=== PATIENT | male | born 1945 | race African-American/Black ===

== ENCOUNTER 2017-05-24 10:55 | Inpatient (IN) ==
--- NOTE | 2017-05-24 11:25 | EKG Report ---
Stationary ECG Study [facility] ER Test Date: 05/24/2017 11:07:08 AM Pat Name: ENRIKE COLINDRES Department: Room: Gender: M Training Representative: Magdiel Rowe : 1945 Requested by: Jonah Schmid Order Number: [id number] Reading MD: YURI MEJIA Intervals [place] Rate: 74 P: 68 MS: 194 QRS: -2 QRSD: 113 T: 83 QT: 444 QTc: 471 Interpretive Statements SINUS RHYTHM WITH OCCASIONAL VENTRICULAR PREMATURE COMPLEXES WITH OCCASIONAL SUPRAVENTRICULAR PREMATURE COMPLEXES NONSPECIFIC INTRAVENTRICULAR CONDUCTION DELAY LONG QT INTERVAL Electronically Signed On 05-24-17 18:23:08 CDT by YURI MEJIA [email or web address]
[2017-05-24 11:39] LABS: Basophils # 0.1 10*3/uL (0.0-0.2); Basophils % 1.2 % (0.0-0.8); Eosinophils # 0.2 10*3/uL (0.0-0.87); Eosinophils % 3.8 % (0.00-10.9); Hematocrit 39.4 VOL% (42.0-52.0); Hemoglobin 13.6 GM/DL (14.0-18.0); Immature Granulocytes % 0.2 %; Immature Granulocytes Absolute 0.01 #; Lymphocytes # 1.4 10*3/uL (1.4-4.0); Lymphocytes % 33.7 % (21.2-54.2); Mean Corpuscular HGB Conc 34.5 GM/DL (32-36); Mean Corpuscular Hemoglobin 32 PG (27-34); Mean Corpuscular Volume 92.9 FL (87-102); Mean Platelet Volume 11.5 FL (9.6-12.0); Monocytes # 0.7 10*3/uL (0.11-0.8); Monocytes % 16.3 % (1.7-12.7); Neutrophils # 1.9 10*3/uL (1.4-7.4); Neutrophils % 44.8 % (38.7-73.9); Platelet Count 218 T/CUMM (130-400); Red Blood Count 4.24 MC/CUMM (3.8-5.5); Red Cell Distribution Width 13.4 % (9.3-17.3); White Blood Count 4.2 T/CUMM (4-12)
--- NOTE | 2017-05-24 11:41 | XRay Report ---
History: Shortness of breath Date: 05/24/2017 Study: Chest x-ray AP portable Comparison exam: October 07, 2016 There is continued cardiomegaly. The midsternal contours are stable in this patient status post prior median sternotomy. The pulmonary vasculature is borderline prominent. A left subclavian transvenous pacemaker/defibrillator device is stable in appearance. There is no confluent infiltrate. The lungs are generally clear for shallow breath. There is no gross pleural effusion. Osseous structures are similar. Impression: Cardiomegaly and pulmonary venous hypertension appearance. Otherwise unchanged PROCEDURE INTERPRETED AT [facility] DEPARTMENT OF RADIOLOGY Final Report Signed by: Dr. Emeli Rabago
[2017-05-24 12:32] LABS: Eosinophils 4 % (0-10); Lymphocytes 36 % (20-55); Segmented Neutrophils 48 % (50-85); Total Cells Counted 100
[2017-05-24 12:33] LABS: Hypochromasia 1+; Platelet Estimate Normal
[2017-05-24 13:23] LABS: Albumin 3.3 G/DL (3.4-5.0); Calcium 8.9 MG/DL (8.5-10.1); Magnesium 2.4 MG/DL (1.8-2.4); Osmolality,Calculated 274.1 MOS/KG (273-304); Total Protein 7.2 G/DL (6.4-8.3)
[2017-05-24 13:26] LABS: Troponin I Only 0.085 NG/ML (0.00-0.045)
[2017-05-24 13:27] LABS: Potassium 2.3 MMOL/L (3.5-5.1)
[2017-05-24] MEDS ORDERED: POTASSIUM CHLORIDE 20 MEQ TABLET PO STA (13:46)
[2017-05-24] MEDS ORDERED: POTASSIUM CHLORIDE RIDER 100 ML IV ONE ×2 (13:54→15:56)
--- NOTE | 2017-05-24 13:54 | Emergency Department Note ---
Keenan Aguilera Rolonda, am scribing for, and in the presence of, Jonah Gomez MD 13:00. Jason Aguilera Phillip K, MD, personally performed the services described in this documentation, ascribed by Enma Hussein in my presence, and it is both accurate and complete [id number] . Arrival - Arrival Chief Complaint: Shortness of Breath Stated Complaint: Dr Higginbotham sent to get fluid removed ED Nursing Triage Note: pt ambulatory to triage with c/o having sob onset 5 days lpta. pt states he went to see a today and they called dr. higginbotham and she told pt to come to ED. Mode of Arrival: Ambulatory Limitations: No Limitations Source: Patient, Significant other (), Old Records Reviewed, RN Notes Reviewed Time Seen by Provider: 05/24/17 11:21 - History of Present Illness HPI Narrative: Pt is a 71 y/o male who presents to the ED with c/o SOB with an onset of days. Pt has a PMHx of CHF, HTN, Pacemaker, and Cardiovascular problems. states that pt was [facility] today and was referred to ED s/p X-ray. She states that pt is currently taking 40 mg Lasix in the mornings and in the evenings. Pt states that the SOB worsens while he is walking and laying down. Pt confirms coughing with no production and CP but denies fever. states that pt is scheduled for a defibrillator upgrade. No other complaint/pain in ED. Onset (ago): hour(s) Consistency: constant Severity: mild Severity scale (1-10): 3 Allergies/Adverse Reactions: Allergies Allergy/AdvReac Type Severity Reaction Status Date / Time No Known Allergies Allergy Verified 05/24/17 11:04 Home Medications: Home Medications Medication Instructions Recorded Confirmed Type Pravastatin Sodium 80 mg PO BEDTIME 11/18/15 05/24/17 History Albuterol Inhaler [Proventil 2 puff INH Q6HR 01/04/16 05/24/17 History Inhaler] Furosemide Tab [Lasix Tab] 40 mg PO BID 07/16/16 05/24/17 History Omeprazole [Prilosec] 20 mg PO QAM 07/16/16 05/24/17 History Potassium Chloride 20 meq PO BID 07/16/16 05/24/17 History Colchicine [Colcrys] 0.6 mg PO DAILY 10/07/16 05/24/17 History HYDROcodone/ACETAMIN 10-325 [[place] 1 tablet PO Q6H PRN 10/07/16 05/24/17 History 10-325] Aspirin EC Tab 81 mg PO QAM 05/24/17 05/24/17 History Carvedilol [Carvedilol] 6.25 mg PO BID 05/24/17 05/24/17 History Clopidogrel [Plavix] 75 mg PO QAM 05/24/17 05/24/17 History Ferrous Sulfate 325 mg PO QAM 05/24/17 05/24/17 History Meloxicam [Meloxicam] 7.5 mg PO QAM 05/24/17 05/24/17 History metOLazone [Metolazone] 2.5 mg PO QOTHER DAY 05/24/17 05/24/17 History Review of System - Review of System 12 point system: reviewed and no additional remarkable complaints except as stated - Review of System Constitutional: Absent: chills, fever Eyes: Absent: discharge Head/Ears/Nose/Throat: Absent: earache Respiratory: Present: cough, respiratory distress (SOB) Cardiovascular: Present: chest pain, dyspnea on exertion Gastrointestinal: Absent: abdominal pain Genitourinary male: Absent: dysuria Musculoskeletal: Absent: arm pain, back pain Skin: Absent: rash Neurological: Absent: headache Psychiatric: Absent: anxiety Endocrine: Absent: cold intolerance Hematological/Lymphatic: Absent: easy bleeding Allergic/Immunologic: Absent: facial swelling Medical,Surgical,& Family Hx - Medical History Cardio: History of: Cardiac Dysrhythmia, CHF, CAD, Hypertension, [place], Pacemaker ( icd), Cardiovascular Problems (4 Bypass, History of LV thrombus) Neurology: No history of: Seizures Endocrine: History of: Dyslipidemia No history of: Diabetes Mellitus (NIDDM) Rheumatology: History of;: Gout Respiratory: History of: COPD, Pulmonary Embolism, Pneumonia Gastrointestinal: History of: GERD, Polyps Musculoskeletal: History of: Musculoskeletal Problems (hx of left leg break, sees pain mgmt for tx) Hematology: No history of: Blood Transfusion Reaction Reproductive: Reports: Reproductive Problems (ED) Other: No history of: HIV, MRSA - Surgical History Cardiac Surgeries: Sugical HX of: Cardiac Catheterization (done 01/04/16), Cardiac Surgery (2004), Internal Defibrillator Thoracic Surgeries: Patient denies;: Organ Transplant Abdominal Surgeries: Surgical HX of: Colonoscopy, EGD Reproductive Surgeries: Patient denies;: Genitourinary Surgery - Family History Family History: Reports;: Family Cancer (mom and dad), Family Diabetes (mom), Family Hypertension - Social History Smoking Status: Current every day smoker Frequency of Alcohol Use: None Type of Drug Use: None Exam Vital Signs: Vital Signs Temperature 98.4 F 05/24/17 11:36 Pulse Rate 73 05/24/17 11:36 Respiratory Rate 17 05/24/17 11:36 Blood Pressure 91/70 05/24/17 11:36 O2 Sat by Pulse Oximetry 100 05/24/17 11:01 - General General appearance: alert, in no apparent distress - Head Head exam: Present: atraumatic, normocephalic - Eye Eye exam: Present: PERRL, EOMI - ENT ENT exam: Present: mucous membranes moist. Absent: mucous membranes dry - Neck Neck exam: Present: full ROM. Absent: tenderness - Chest Chest inspection: Present: symmetric chest wall rise. Absent: tenderness - Respiratory Respiratory exam: Present: wheezes (slight expiratory). Absent: rales - Cardiovascular Cardiovascular exam: Present: regular rate, normal rhythm, normal heart sounds. Absent: bradycardia - Abdominal Exam Abdominal exam: Present: soft, normal bowel sounds. Absent: tenderness - Extremities Exam Extremities exam: Present: full ROM, pedal edema (trace) - Back Exam Back exam: Present: full ROM. Absent: tenderness - Neurological Exam Neurological exam: Present: alert, oriented X3, CN II-XII intact - Psychiatric Psychiatric exam: Present: normal affect, normal mood - Skin Skin exam: Present: warm, dry, intact, normal color. Absent: rash Course Course Narrative: Patient discussed with Dr. Colvin Results - Labs CBC & BMP: 05/24/17 11:29 05/24/17 12:52 Lab Results: I have reviewed the patients labs Labs: Laboratory Tests 05/24/17 11:29 WBC 4.2 RBC 4.24 Hgb 13.6 L Hct 39.4 L Plt Count 218 [place] % (Auto) 16.3 H Baso % (Auto) 1.2 H Laboratory Tests 05/24/17 05/24/17 11:29 11:29 Total Counted 100 Segmented Neutrophils 48 L Lymphocytes 36 Monocytes 10 Eosinophils 4 Basophils 2.0 H Platelet Estimate Normal Hypochromasia 1+ Morphology Comment B-Natriuretic Peptide 598 H Laboratory Tests 05/24/17 12:52 Sodium 135 L Potassium 2.3 L* Chloride 94 L Carbon Dioxide 34 H BUN 25 H GFR Calculation 82 Glucose 112 H AST 21 ALT 15 L Troponin I 0.085 H Albumin 3.3 L Globulin 3.9 H Albumin/Globulin Ratio 0.8 L - EKG EKG results: interpreted by ERMJannet, sinus rhythm (Occasional PVCs nonspecific ST- T changes) - Diagnostic Findings Procedure: Chest x-ray: report reviewed by me (Cardiomegaly and pulmonary venous hypertension appearance.) Disposition Clinical Impression: Hypokalemia, History of congestive heart failure, Ischemic cardiomyopathy Case discussed with: patient Disposition: Still a Patient Condition: Guarded Additional Instructions: Admit to Dr. Colvin
[2017-05-24] MEDS ORDERED: POTASSIUM CHLORIDE 20 MEQ TABLET PO ONE (13:55)
[2017-05-24] MEDS ORDERED: POTASSIUM CHLORIDE RIDER 10 MEQ in PREMIX 1 EACH IV SCH (14:00)
[2017-05-24] MEDS: POTASSIUM CHLORIDE RIDER 10 MEQ in PREMIX 1 EACH IV SCH ×3 (14:05→18:58)
[2017-05-24] MEDS ORDERED: FUROSEMIDE 40 MG/4 ML VIAL IV SCH (14:55)
[2017-05-24] MEDS ORDERED: MAGNESIUM SULF RIDER 4 GM in PREMIX 1 EACH IV PRN (14:59)
[2017-05-24] MEDS ORDERED: POTASSIUM CHLORIDE RIDER 10 MEQ in PREMIX 1 EACH IV PRN (14:59)
[2017-05-24] MEDS ORDERED: MAGNESIUM SULF RIDER 2 GM in PREMIX 1 EACH IV PRN (14:59)
[2017-05-24] MEDS ORDERED: ONDANSETRON 4 MG/2 ML VIAL IV PRN (14:59)
--- NOTE | 2017-05-24 14:59 | Cardiology History & Physical ---
<Patricia Clayton - Last Filed: 05/24/17 15:11> Assessment and Plan - Time spent with patient Time spent with patient: Greater than 30 minutes (1) Acute on chronic congestive heart failure Status: Acute Assessment and plan: SEE PLAN OF CARE LISTED BELOW. Current Visit: Yes Qualifiers: Congestive heart failure type: combined Qualified Code(s): I50.43 - Acute on chronic combined systolic (congestive) and diastolic (congestive) heart failure (2) COPD exacerbation Status: Acute Assessment and plan: SEE PLAN OF CARE LISTED BELOW. Current Visit: Yes (3) Ischemic cardiomyopathy Status: Chronic Assessment and plan: SEE PLAN OF CARE LISTED BELOW. Current Visit: Yes (4) CAD (coronary artery disease) Status: Chronic Assessment and plan: SEE PLAN OF CARE LISTED BELOW. Current Visit: No (5) Dyslipidemia Status: Chronic Assessment and plan: SEE PLAN OF CARE LISTED BELOW. Current Visit: Yes (6) Tobacco abuse Status: Chronic Assessment and plan: SEE PLAN OF CARE LISTED BELOW. Current Visit: Yes (7) Tricuspid regurgitation Status: Chronic Assessment and plan: SEE PLAN OF CARE LISTED BELOW. Current Visit: Yes (8) LV (left ventricular) mural thrombus Status: Chronic Assessment and plan: SEE PLAN OF CARE LISTED BELOW. Current Visit: No (9) Hypokalemia Status: Acute Assessment and plan: SEE PLAN OF CARE LISTED BELOW. Current Visit: Yes History of Present Illness Chief complaint: Shortness of breath History of present illness: [employer] Worker: Dr. Emelyn Higginbotham Mr. Weiss is a 71 year old male with known history of coronary artery disease, routinely followed by Dr. Higginbotham. Patient has coronary risk factors significant for hypertension, dyslipidemia, known CAD, current everyday smoker and advanced age. Patient denies any significant family history of coronary artery disease. Patient has past medical history of ischemic cardiomyopathy ( most recent ejection fraction 15-20% per echo April 2017), COPD, left ventricular thrombus, LVH, MR and non-ST elevation [place]. His most recent heart catheterization was performed July 2016, received PCI to ramus intermedius. Remains on aspirin and Plavix, reports compliance. Status post coronary artery bypass grafting. His SVG to obtuse marginal artery noted to be occluded. Status post stent to SVG to first diagonal in December 2015. He does have ICD. Per Dr. Emelyn Higginbotham since last night, he is scheduled to see Dr. Colvin May 27 for discussion of upgrade to BI V ICD. Most recent echocardiogram was performed April 2017. At that time, he was noted to have severely depressed LV systolic function, ejection fraction 15-20%. There is global hypokinesis. Grade 3 diastolic dysfunction. Mild concentric LVH. There is an old organized apical mural thrombus noted. Moderate MR, mild to moderate pulmonic regurgitation and moderate to severe TR. He last saw Dr. Emelyn Higginbotham in the cardiology clinic April 2017. Patient was in his usual state of health until roughly 4 days ago when he became progressively more short of breath. He reports having chronic dyspnea as he does have history of COPD. However, he has noticed that he has been significantly more short of breath with exertion over the last 4 days. He also reports productive cough. Denies associated chest pain, heaviness or tightness. Also denies fever, orthopnea, PND and lower extremity swelling he does confirm slight abdominal fullness.. Patient was last seen by Dr. Emelyn Higginbotham April 23 2017. He had labs drawn at that time. He reports receiving a phone call 2-3 weeks ago and was instructed to increase his Lasix dose to 80 mg twice daily due to elevated BNP level. He did as he was instructed. He has progressively gotten more short of breath and today he felt that he should be further evaluated in the emergency department. Patient has been admitted under cardiology service. He will be housed on the telemetry unit. Patient was seen and examined in the emergency department. He continues to be mildly short of breath. Oxygen saturation stable in the low 90s. Upon auscultation, wheezing auscultated. Suspect that this is a combination of both acute on chronic congestive heart failure as well as COPD exacerbation. Chest x -ray does reveal mild pulmonary edema. BNP 598. Patient is afebrile. No leukocytosis. Troponin only mildly elevated, suspect that this is secondary to patient's acute heart failure. Patient has both systolic and diastolic dysfunction per most recent echocardiogram performed April 2017. Most recent ejection fraction noted to be 15-20%. No need to repeat echocardiogram at this time. Case was discussed with Dr. Colvin, I will diurese patient with IV Lasix. We will monitor potassium closely and replace as needed. Can consider adding IV dobutamine as the patient is mildly hypotensive. Will plan for biventricular ICD upgrade in the near future. Can consider adding Aldactone in the future. Further plan and addendum to follow per Dr. Colvin. ASSESSMENT/PLAN: 1. ACUTE ON CHRONIC CONGESTIVE HEART FAILURE, COMBINED SYSTOLIC AND DIASTOLIC DYSFUNCTION - Patient has both systolic and diastolic dysfunction per most recent echocardiogram performed April 2017. Most recent ejection fraction noted to be 15-20%. No need to repeat echocardiogram at this time. Case was discussed with Dr. Colvin, we will diurese patient with IV Lasix. We will monitor potassium closely and replace as needed. Can consider adding IV dobutamine as the patient is mildly hypotensive. Will plan for biventricular ICD upgrade in the near future. Can consider adding Aldactone in the future. Further plan and addendum to follow per Dr. Colvin. 2. ACUTE COPD EXACERBATION - DuoNeb's ordered. Oxygen via nasal cannula. 3. HYPOKALEMIA - Secondary to increase in Lasix dosage. Continue to replace per IV protocol. Daily BMP. Can consider adding Aldactone in the future. 4. HISTORY OF ISCHEMIC CARDIOMYOPATHY - Most recent ejection fraction 50-20%. Plan for biventricular ICD upgrade in the near future. Unable to initiate WILLY inhibitor as blood pressure will not allow. 5. HISTORY OF CAD - Recently underwent PCI July 2016. Patient remains on dual antiplatelet therapy. This will be continued this hospitalization. Continue lipid-lowering agent as well as beta-blockade. Lipid panel in the morning. 6. DYSLIPIDEMIA - Continue lipid-lowering agent. Lipid panel in the morning. 7. CURRENT EVERYDAY SMOKER - Smoking cessation encouraged. 8. HISTORY OF LV THROMBUS - This is old. Stable. 9. TRICUSPID REGURGITATION - Moderate to severe TR noted per most recent echocardiogram. Continue current plan of care. Home Medications Medication Instructions Recorded Confirmed Type Pravastatin Sodium 80 mg PO BEDTIME 11/18/15 05/24/17 History Albuterol Inhaler [Proventil 2 puff INH Q6HR 01/04/16 05/24/17 History Inhaler] Furosemide Tab [Lasix Tab] 40 mg PO BID 07/16/16 05/24/17 History Omeprazole [Prilosec] 20 mg PO QAM 07/16/16 05/24/17 History Potassium Chloride 20 meq PO BID 07/16/16 05/24/17 History Colchicine [Colcrys] 0.6 mg PO DAILY 10/07/16 05/24/17 History HYDROcodone/ACETAMIN 10-325 [[place] 1 tablet PO Q6H PRN 10/07/16 05/24/17 History 10-325] Aspirin EC Tab 81 mg PO QAM 05/24/17 05/24/17 History Carvedilol [Carvedilol] 6.25 mg PO BID 05/24/17 05/24/17 History Clopidogrel [Plavix] 75 mg PO QAM 05/24/17 05/24/17 History Ferrous Sulfate 325 mg PO QAM 05/24/17 05/24/17 History Meloxicam [Meloxicam] 7.5 mg PO QAM 05/24/17 05/24/17 History metOLazone [Metolazone] 2.5 mg PO QOTHER DAY 05/24/17 05/24/17 History Allergies Allergy/AdvReac Type Severity Reaction Status Date / Time No Known Allergies Allergy Verified 05/24/17 11:04 - Constitutional Constitutional: Present: as per HPI, fatigue, weakness, weight gain. Absent: chills, fever(s), weight loss - Cardiovascular Cardiovascular: Present: as per HPI, dyspnea, dyspnea on exertion. Absent: chest pain at rest, chest pain with activity, claudication, diaphoresis, edema, radiating jaw, neck or arm pain, lightheadedness, orthopnea, palpitations, PND - Respiratory Respiratory: Present: as per HPI, cough, dyspnea, dyspnea on exertion, wheezing , change in phlegm color. Absent: hemoptysis, snoring - Gastrointestinal Gastrointestinal: Present: as per HPI, bloating. Absent: abdominal pain, hematemesis, hematochezia, loose stools, melena, nausea, vomiting - Neurological Neurological: Present: as per HPI. Absent: abnormal gait, abnormal speech, behavioral changes, dizziness, syncope Medical,Surgical,& Family Hx - Medical History Cardio: History of: CHF, CAD, Hypertension, [place], Pacemaker (icd), Cardiovascular Problems (4 Bypass, History of LV thrombus) Endocrine: History of: Dyslipidemia Rheumatology: History of;: Gout Respiratory: History of: COPD, Pulmonary Embolism, Pneumonia Gastrointestinal: History of: GERD, Polyps Musculoskeletal: History of: Musculoskeletal Problems (hx of left leg break, sees pain mgmt for tx) Hematology: No history of: Blood Transfusion Reaction Reproductive: Reports: Reproductive Problems (ED) Other: No history of: HIV, MRSA - Surgical History Cardiac Surgeries: Sugical HX of: Cardiac Catheterization (done 01/04/16), Cardiac Surgery (2003), Internal Defibrillator Thoracic Surgeries: Patient denies;: Organ Transplant Abdominal Surgeries: Surgical HX of: Colonoscopy, EGD Reproductive Surgeries: Patient denies;: Genitourinary Surgery - Family History Family History: Reports;: Family Cancer (mom and dad), Family Diabetes (mom), Family Hypertension - Social History Smoking Status: Current every day smoker Frequency of Alcohol Use: None Type of Drug Use: Marijuana Marital Status: Single Lives With:: Alone Functional capacity: independent ambulation Cardiology Physical Exam - Constitutional Vitals: Vital Signs Temp Pulse Resp BP Pulse Ox 98.4 F 73 17 91/70 100 05/24/17 11:36 05/24/17 11:36 05/24/17 11:36 05/24/17 11:36 05/24/17 11:01 Intake and Output 05/23/17 05/24/17 05/24/17 22:59 06:59 14:59 Other: Weight 183 lb Patient Weight 05/25/17 06:59 Weight 183 lb Exam: General: Appears well with no apparent distress. Pleasant and cooperative. Appears comfortable. HEENT: PERRL, normocephalic, atraumatic. Mucous membranes moist. No jaundice noted. Conjunctiva moist and clear, sclerae anicteric Neck: No JVD/HJR, no thyromegaly or lymphadenopathy noted. No carotid bruit appreciated Cardiac: Regular rate and rhythm. Systolic murmur. Lungs: Wheezing auscultated throughout, Rales bilateral bases. Oxygen via nasal cannula Abdomen: Soft, bowel sounds normoactive. Nontender. Abdomen distended. No abdominal bruit or thrill noted. No masses noted. Extremities: No clubbing, cyanosis noted. No edema noted. Upper extremity pulses 2+. Lower extremity pulses 2+. Capillary refill less than 3 seconds. Skin: No unusual lesions or rashes. No skin breakdown appreciated. Neuro: Awake, alert and oriented 3. Moves all extremities well without hemiparesis or paralysis. No essential tremor is appreciated. Result/EKG - Labs CBC & BMP: 05/24/17 11:29 05/24/17 12:52 Lab Results: I have reviewed the past 24 hour labs Labs: Laboratory Results - last 24 hr 05/24/17 05/24/1717 11:29 11:29 12:52 WBC 4.2 RBC 4.24 Hgb 13.6 L Hct 39.4 L MCV 92.9 MCH 32 MCHC 34.5 RDW 13.4 Plt Count 218 MPV 11.5 Neut % (Auto) 44.8 Lymph % (Auto) 33.7 [place] % (Auto) 16.3 H Eos % (Auto) 3.8 Baso % (Auto) 1.2 H Neut # (Auto) 1.9 Lymph # (Auto) 1.4 [place] # (Auto) 0.7 Eos # (Auto) 0.2 Baso # (Auto) 0.1 Total Counted 100 Immature Gran % 0.2 Nucleated RBC % 0.0 Immature Gran # 0.01 Segmented Neutrophils 48 L Lymphocytes 36 Monocytes 10 Eosinophils 4 Basophils 2.0 H Nucleated RBCs # 0.00 Platelet Estimate Normal Immature Plt Fraction 0.0 Hypochromasia 1+ Morphology Comment Sodium 135 L Potassium 2.3 L* Chloride 94 L Carbon Dioxide 34 H Anion Gap 9.3 BUN 25 H Creatinine 1.20 GFR Calculation 82 BUN/Creatinine Ratio 20.00 Glucose 112 H Calculated Osmolality 274.1 Calcium 8.9 Magnesium 2.4 Total Bilirubin 1.00 AST 21 ALT 15 L Alkaline Phosphatase 108 Troponin I 0.085 H B-Natriuretic Peptide 598 H Total Protein 7.2 Albumin 3.3 L Globulin 3.9 H Albumin/Globulin Ratio 0.8 L <Ha Colvin - Last Filed: 05/27/17 08:02> Assessment and Plan (1) CHF exacerbation Status: Acute Current Visit: No Qualifiers: Congestive heart failure type: systolic (2) Acute exacerbation of chronic obstructive airways disease Status: Resolved Current Visit: No (3) Ischemic cardiomyopathy Status: Chronic Current Visit: No (4) Hypertension Status: Chronic Current Visit: No (5) Hyperlipidemia Status: Chronic Current Visit: No (6) LV (left ventricular) mural thrombus Status: Chronic Current Visit: No History of Present Illness History of present illness: See my addendum dictated separately. Cardiology Physical Exam - Constitutional Vitals: Vital Signs Temp Pulse Resp BP Pulse Ox 98.2 F 77 20 115/74 97 05/27/17 07:47 05/27/17 07:47 05/27/17 07:47 05/27/17 07:47 05/27/17 07:47 Intake and Output 05/26/17 05/27/17 05/27/17 23:59 07:59 15:59 Intake Total 600 / 600 120 / 120 Output Total 900 / 900 675 / 675 Balance -300 / -300 -555 / -555 Intake: Oral 600 / 600 120 / 120 Output: Urine 900 / 900 675 / 675 Other: Voiding Method Urinal Urinal # Bowel Movements 1 Weight 83.943 kg Patient Weight 05/27/17 23:59 Weight 83.943 kg Result/EKG - Labs CBC & BMP: 05/27/17 03:49 05/27/17 03:49 Labs: Laboratory Results - last 24 hr 05/27/17 05/27/17 03:49 03:49 WBC 6.5 RBC 4.27 Hgb 13.8 L Hct 40.2 L MCV 94.1 MCH 32 MCHC 34.3 RDW 13.4 Plt Count 236 MPV 11.4 Neut % (Auto) 49.1 Lymph % (Auto) 37.2 [place] % (Auto) 9.5 Eos % (Auto) 2.9 Baso % (Auto) 0.8 Neut # (Auto) 3.2 Lymph # (Auto) 2.4 [place] # (Auto) 0.6 Eos # (Auto) 0.2 Baso # (Auto) 0.1 Immature Gran % 0.5 Nucleated RBC % 0.0 Immature Gran # 0.03 Nucleated RBCs # 0.00 Immature Plt Fraction 0.0 Sodium 138 Potassium 3.4 L Chloride 99 Carbon Dioxide 31 Anion Gap 11.4 BUN 15 Creatinine 1.20 GFR Calculation 83 BUN/Creatinine Ratio 12.00 Glucose 117 H Calculated Osmolality 276.7 Calcium 9.2 Magnesium 2.3
--- NOTE | 2017-05-24 17:18 | Event Note ---
Holding off on reinitiating antihypertensives as patient was borderline hypotensive during time of admission. We will reinitiate these once his blood pressure will allow.
[2017-05-24] MEDS: ENOXAPARIN 40 MG/0.4 ML SYRINGE SUBCUT SCH (17:20)
[2017-05-24] MEDS: DOCUSATE SODIUM 100 MG CAPSULE PO PRN (17:22)
[2017-05-24] MEDS: ACETAMINOPHEN 325 MG TABLET PO PRN (17:39)
[2017-05-24] MEDS ORDERED: ALBUTEROL/IPRATROPIUM 3 ML NEB RESP TX SCH (18:00)
[2017-05-24 18:26] LABS: Troponin I Only 0.054 NG/ML (0.00-0.045)
[2017-05-24] MEDS: ALBUTEROL/IPRATROPIUM 3 ML NEB RESP TX SCH ×2 (19:08→23:56)
[2017-05-24] MEDS: POTASSIUM CHLORIDE 20 MEQ TABLET PO SCH (21:32)
[2017-05-24] MEDS: PRAVASTATIN 40 MG TABLET PO SCH (21:33)
[2017-05-24 22:03] LABS: Apearance,Urine CLEAR (Clear); Bilirubin,Urine Negative (Negative); Blood, Urine Negative (Negative); Glucose,Urine (UA) Negative (Negative); Hyaline Casts,Urine 5 /LPF (0-3); Ketones,Urine Negative (Negative); Nitrite,Urine Negative (Negative); Protein,Urine Negative; Urine Color Straw (Yellow); Urine Specific Gravity 1.004 (1.001-1.035); Urine Urobilinogen < 2.0 EU/DL (0.2-1.0)
[2017-05-24 23:53] LABS: Troponin I Only 0.054 NG/ML (0.00-0.045)
[2017-05-25] MEDS: ALBUTEROL/IPRATROPIUM 3 ML NEB RESP TX SCH ×6 (03:32→23:35)
[2017-05-25 05:18] LABS: Basophils % 0.7 % (0.0-0.8); Eosinophils # 0.2 10*3/uL (0.0-0.87); Hematocrit 39.1 VOL% (42.0-52.0); Hemoglobin 13.2 GM/DL (14.0-18.0); Immature Granulocytes % 0.4 %; Immature Granulocytes Absolute 0.02 #; Lymphocytes # 1.5 10*3/uL (1.4-4.0); Lymphocytes % 27.5 % (21.2-54.2); Mean Corpuscular HGB Conc 33.8 GM/DL (32-36); Mean Corpuscular Hemoglobin 32 PG (27-34); Mean Corpuscular Volume 93.5 FL (87-102); Monocytes # 0.6 10*3/uL (0.11-0.8); Monocytes % 10.7 % (1.7-12.7); Neutrophils # 3.1 10*3/uL (1.4-7.4); Neutrophils % 57.7 % (38.7-73.9); Platelet Count 194 T/CUMM (130-400); Red Blood Count 4.18 MC/CUMM (3.8-5.5); Red Cell Distribution Width 13.5 % (9.3-17.3); White Blood Count 5.4 T/CUMM (4-12)
[2017-05-25 05:47] LABS: Albumin 3.2 G/DL (3.4-5.0); Calcium 9.1 MG/DL (8.5-10.1); Osmolality,Calculated 276.8 MOS/KG (273-304); Potassium 2.8 MMOL/L (3.5-5.1); Risk Ratio 4.03; Total Protein 6.2 G/DL (6.4-8.3); VLDL CHOLESTEROL 16.6 MG/DL
--- NOTE | 2017-05-25 07:48 | EKG Report ---
Stationary ECG Study [facility] Test Date: 05/25/2017 7:46:53 AM Pat Name: ENRIKE COLINDRES Department: Room: 290 Gender: M Associate Director Of Biostatistics: : 1945 Requested by: Patricia Clayton Order Number: [id number] Reading MD: JONATAN COLE Intervals [place] Rate: 84 P: 53 [place]: 175 QRS: 1 QRSD: 122 T: 105 QT: 426 QTc: 467 Interpretive Statements SINUS RHYTHM WITH OCCASIONAL SUPRAVENTRICULAR PREMATURE COMPLEXES POSSIBLE LEFT ATRIAL ENLARGEMENT LEFT BUNDLE BRANCH BLOCK Electronically Signed On 05-25-17 22:46:40 CDT by JONATAN COLE [email or web address]
[2017-05-25] MEDS: POTASSIUM CHLORIDE 20 MEQ TABLET PO SCH ×3 (08:26→21:43)
[2017-05-25] MEDS: COLCHICINE 0.6 MG TABLET PO SCH (08:26)
[2017-05-25] MEDS: CLOPIDOGREL 75 MG TABLET PO SCH (08:26)
[2017-05-25] MEDS: PANTOPRAZOLE 40 MG TABLET PO SCH (08:26)
[2017-05-25] MEDS: FERROUS SULFATE 325 MG TABLET PO SCH (08:26)
[2017-05-25] MEDS: ASPIRIN EC 81 MG TABLET PO SCH (08:26)
[2017-05-25] MEDS: DOCUSATE SODIUM 100 MG CAPSULE PO PRN (08:26)
[2017-05-25] MEDS ORDERED: POTASSIUM CHLORIDE 20 MEQ TABLET PO SCH (09:00)
[2017-05-25] MEDS ORDERED: FUROSEMIDE 40 MG/4 ML VIAL IV SCH (09:00)
--- NOTE | 2017-05-25 09:03 | XRay Report ---
Portable chest Date: 05/25/2017 Clinical history: Shortness of breath Comparison: 05/24/2017 Technique: Portable AP sitting chest Findings: Stable cardiomegaly in patient with prior median sternotomy. Left subclavian ventricular AICD. No significant change in the appearance of the lungs, mediastinum, or osseous structures. Impression: Status post median sternotomy with persistent cardiomegaly and left subclavian ventricular AICD. Persistent evidence of pulmonary venous hypertension/mild CHF. PROCEDURE INTERPRETED AT [facility] DEPARTMENT OF RADIOLOGY Final Report Signed by: Dr. Monica Latham
--- NOTE | 2017-05-25 13:12 | ECHO Report ---
Jessee Weiss 05/25/2017 Exam Date: 10:59 Referring Physician: Sandra Almaguer Technologist: NIYAH Age: 71 Ht (in): 71 Wt (lb): 183 MExam Location: [facility] Gender: Echo [id number]: Acute on chronic systolic (congestivIndications:e) heart failure, COPD, Ischemic cardiomyopathy, CAD with previoius CABG and stent, Dyslipidemia, Nicotine dependence, cigarettes, uncomplicated, hx TR, Presence of automatic (implantable) cardiac defibrillator, Hypokalemia, hx LV mural thrombus BP: 131 / 73 HR: 76 SinusRhythm: Technical Quality: IMPRESSIONS Normal left ventricular cavity size. Normal left ventricular wall thickness. The posterior and the basal septal segments thicken normally, the mid to distal segments and the apex is thinned, akinetic, the remaining segments are hypokinetic. Left ventricular ejection fraction is estimated at 20%. No thrombus is seen. Grade 3 diastolic dysfunction. Moderate right atrial and severe left atrial enlargement. Moderate mitral regurgitation. Aortic valve sclerosis, without stenosis, with mild insufficiency. Moderate to severe tricuspid valve regurgitation, with severe pulmonary hypertension. Mild pulmonic valve regurgitation. MEASUREMENTS (Male / Female) Normal Values 2D ECHO LV Diastolic Diameter PLAX 5.7 cm 4.2 - 5.9 / 3.9 - 5.3 cm LV Systolic Diameter PLAX 4.9 cm LV Fractional Shortening PLAX 14.1 % IVS Diastolic Thickness 1.0 cm 0.6 - 1.0 / 0.6 - 0.9 cm LVPW Diastolic Thickness 1.0 cm 0.6 - 1.0 / 0.6 - 0.9 cm RV Internal Dim ED PLAX 4.4 cm Aortic Root Diameter 3.5 cm LA Systolic Diameter LX 4.9 cm 3.0 - 4.0 / 2.7 - 3.8 cm DOPPLER TR Peak Velocity 431.0 cm/s TR Peak Gradient 74.3 mmHg FINDINGS Left Ventricle Normal left ventricular cavity size. Normal left ventricular wall thickness. The posterior and the basal septal segments thicken normally, the mid to distal segment and the apex is thinned, akinetic, the remaining segments are hypokinetic. Left ventricular ejection fraction is estimated at 20%. Grade 3 diastolic dysfunction. No thrombus is seen. Right Ventricle Normal right ventricular size. ICD wire is seen. Right Atrium Moderately increased right atrial size. Left Atrium The left atrium is severely dilated. Mitral Valve Morphologically normal mitral valve. Moderate mitral valve regurgitation Aortic Valve Aortic valve sclerosis, without stenosis, with a mild insufficiency. Tricuspid Valve Morphologically normal tricuspid valve. Jwlkqdff-sa-vtfedo tricuspid valve regurgitation. Tricuspid regurgitation velocities suggest a PAP of 74 mmHg plus right atrial pressure. Pulmonic Valve Morphologically normal pulmonic valve. Mild pulmonic valve regurgitation. Pericardium Normal pericardium without effusion. Aorta Normal ascending aorta dimension. Ha Colvin (Electronically Signed) 25 May 2017 Final Date: 13:11
[2017-05-25] MEDS ORDERED: MORPHINE 2 MG/1 ML SYRINGE IV PRN (13:14)
--- NOTE | 2017-05-25 13:18 | Cardiology Progress Note ---
Assessment and Plan (1) CHF exacerbation Status: Acute Assessment and plan: 71-year-old black male, ischemic cardiomyopathy, ejection fraction 20%, left bundle branch block, QRS 125 ms. He was referred for PIPE STRIPPER-D upgrade and I was planning to see him next week. He developed progressive shortness of breath, weakness, and was hospitalized. He does not have significant peripheral edema, potassium 2.8, blood pressure was borderline low. Oxygen saturation 97-100. Mild acute kidney injury. Mild pulmonary congestion on x-ray Echo: Ejection fraction 20%, severe pulmonary hypertension, moderate MR, moderate to severe TR. -He is in severe systolic plus diastolic heart failure. Borderline blood pressure. He is high risk for pressor support due to underlying ICM, severe hypokalemia. -Add hydralazine 25 milligrams 3 times daily, Imdur 30 mg daily. Watch blood pressure carefully on vasodilators -Increase iv. Lasix to 40 mg 3 times daily. Metolazone was stopped -Continue potassium repletion 40 mg 3 times daily p.o. He was unable to tolerate peripheral IV potassium. I would prefer to avoid placing a central line, as an upgrade to PIPE STRIPPER-D is planned in the next few days -If not responding well, we may need to transfer to the ICU and start dobutamine , under close monitoring -Oxygen, morphine as needed for respiratory distress and pain. -Tranxene for anxiety -No LV thrombus on echo. -Once his acute CHF exacerbation improves, we will plan to proceed with PIPE STRIPPER-D upgrade. Current Visit: No Qualifiers: Congestive heart failure type: systolic (2) Acute exacerbation of chronic obstructive airways disease Status: Resolved Current Visit: No (3) Ischemic cardiomyopathy Status: Chronic Current Visit: No (4) Hypertension Status: Chronic Current Visit: No (5) Hyperlipidemia Status: Chronic Current Visit: No (6) LV (left ventricular) mural thrombus Status: Chronic Current Visit: No Cardiology - PN: Subj Interval history: He is profoundly orthopneic. Blood pressure borderline 90-100. Hypokalemia slightly improved, still 2.8. He is unable to tolerate peripheral repletion. Exam (Progress Note) - Constitutional Vitals: Period Temp Pulse Resp BP Sys/Gonsalez Pulse Ox Last 24 Hr 97.5 F-98.7 F 67-84 17-20 99-131/52-76 92-100 General appearance: normal weight, mild distress - Eye Eye exam: Absent: conjunctival injection, scleral icterus Pupils: Absent: dilated - ENT ENT exam: Present: normal external ear exam - Neck Neck exam: Present: normal inspection - Respiratory Respiratory exam: Present: other (Coarse breath sound) - Cardiovascular Cardiovascular exam: Present: JVD, regular rate and rhythm, systolic murmur - GI/Abdominal GI/Abdominal exam: Present: normal bowel sounds. Absent: distended - Extremities Exam Extremities exam: Present: normal inspection, normal capillary refill. Absent: edema - Back Exam Back exam: Present: normal inspection - Neurological Exam Neurological exam: Present: alert, oriented X3 - Psychiatric Psychiatric exam: Present: normal affect, normal mood - Skin Skin exam: Present: normal color, warm. Absent: cyanosis Result/EKG - Labs CBC & BMP: 05/25/17 04:52 05/25/17 04:52 Lab Results: I have reviewed the past 24 hour labs Labs: Laboratory Results - last 24 hr 05/24/17 05/24/17 05/24/17 12:52 17:22 19:20 WBC RBC Hgb Hct MCV MCH MCHC RDW Plt Count MPV Neut % (Auto) Lymph % (Auto) Person % (Auto) Eos % (Auto) Baso % (Auto) Neut # (Auto) Lymph # (Auto) Person # (Auto) Eos # (Auto) Baso # (Auto) Immature Gran % Nucleated RBC % Immature Gran # Nucleated RBCs # Immature Plt Fraction Sodium 135 L Potassium 2.3 L* Chloride 94 L Carbon Dioxide 34 H Anion Gap 9.3 BUN 25 H Creatinine 1.20 GFR Calculation 82 BUN/Creatinine Ratio 20.00 Glucose 112 H Calculated Osmolality 274.1 Calcium 8.9 Magnesium 2.4 Total Bilirubin 1.00 AST 21 ALT 15 L Alkaline Phosphatase 108 Total Creatine Kinase 99 CK-MB (CK-2) 1.9 Troponin I 0.085 H 0.054 H D B-Natriuretic Peptide Total Protein 7.2 Albumin 3.3 L Globulin 3.9 H Albumin/Globulin Ratio 0.8 L Triglycerides Cholesterol LDL Cholesterol VLDL Cholesterol HDL Cholesterol Heart Disease Risk Ratio Urine Color Straw Urine Appearance Clear Urine pH 6.0 Ur Specific Line [place] 1.004 Urine Protein Negative Urine Glucose (UA) Negative Urine Ketones Negative Urine Blood Negative Urine Nitrate Negative Urine Bilirubin Negative Urine Urobilinogen < 2.0 H Urine Leukocytes Negative Hyaline Casts 5 Ur Culture Indicated? Not indicated 05/24/17 05/25/17 05/25/17 23:06 04:52 04:52 WBC 5.4 RBC 4.18 Hgb 13.2 L Hct 39.1 L MCV 93.5 MCH 32 MCHC 33.8 RDW 13.5 Plt Count 194 MPV 11.0 Neut % (Auto) 57.7 Lymph % (Auto) 27.5 [place] % (Auto) 10.7 Eos % (Auto) 3.0 Baso % (Auto) 0.7 Neut # (Auto) 3.1 Lymph # (Auto) 1.5 Person # (Auto) 0.6 Eos # (Auto) 0.2 Baso # (Auto) 0.0 Immature Gran % 0.4 Nucleated RBC % 0.0 Immature Gran # 0.02 Nucleated RBCs # 0.00 Immature Plt Fraction 0.0 Sodium 137 Potassium 2.8 L Chloride 97 L Carbon Dioxide 32 Anion Gap 10.8 BUN 20 H Creatinine 1.00 GFR Calculation 105 BUN/Creatinine Ratio 20.00 Glucose 123 H Calculated Osmolality 276.8 Calcium 9.1 Magnesium Total Bilirubin 2.00 H AST 18 ALT 15 L Alkaline Phosphatase 101 Total Creatine Kinase 99 CK-MB (CK-2) 1.4 Troponin I 0.054 H B-Natriuretic Peptide Total Protein 6.2 L Albumin 3.2 L Globulin 3.0 Albumin/Globulin Ratio 1.0 L Triglycerides 83 Cholesterol 129 LDL Cholesterol 92.0 VLDL Cholesterol 16.6 HDL Cholesterol 32 L Heart Disease Risk Ratio 4.03 Urine Color Urine Appearance Urine pH Ur Specific Line [place] Urine Protein Urine Glucose (UA) Urine Ketones Urine Blood Urine Nitrate Urine Bilirubin Urine Urobilinogen Urine Leukocytes Hyaline Casts Ur Culture Indicated? 05/25/17 05/25/17 04:52 06:50 WBC RBC Hgb Hct MCV MCH MCHC RDW Plt Count MPV Neut % (Auto) Lymph % (Auto) Person % (Auto) Eos % (Auto) Baso % (Auto) Neut # (Auto) Lymph # (Auto) Person # (Auto) Eos # (Auto) Baso # (Auto) Immature Gran % Nucleated RBC % Immature Gran # Nucleated RBCs # Immature Plt Fraction Sodium Potassium Chloride Carbon Dioxide Anion Gap BUN Creatinine GFR Calculation BUN/Creatinine Ratio Glucose Calculated Osmolality Calcium Magnesium Total Bilirubin AST ALT Alkaline Phosphatase Total Creatine Kinase 78 D CK-MB (CK-2) 1.0 Troponin I 0.040 B-Natriuretic Peptide 882 H Total Protein Albumin Globulin Albumin/Globulin Ratio Triglycerides Cholesterol LDL Cholesterol VLDL Cholesterol HDL Cholesterol Heart Disease Risk Ratio Urine Color Urine Appearance Urine pH Ur Specific Line [place] Urine Protein Urine Glucose (UA) Urine Ketones Urine Blood Urine Nitrate Urine Bilirubin Urine Urobilinogen Urine Leukocytes Hyaline Casts Ur Culture Indicated? - EKG EKG results: interpreted by me
[2017-05-25] MEDS: ISOSORBIDE MONONITRATE 30 MG TABLET PO SCH (13:41)
[2017-05-25] MEDS: CLORAZEPATE 3.75 MG TABLET PO PRN ×2 (13:42→21:43)
[2017-05-25] MEDS: hydrALAZINE 25 MG TABLET PO SCH ×2 (14:26→21:44)
[2017-05-25] MEDS: FUROSEMIDE 40 MG/4 ML VIAL IV SCH ×2 (14:29→21:42)
[2017-05-25] MEDS: ENOXAPARIN 40 MG/0.4 ML SYRINGE SUBCUT SCH (14:32)
[2017-05-25] MEDS: PRAVASTATIN 40 MG TABLET PO SCH (21:43)
[2017-05-26] MEDS: ALBUTEROL/IPRATROPIUM 3 ML NEB RESP TX SCH ×6 (03:59→23:19)
[2017-05-26 05:18] LABS: Basophils # 0.1 10*3/uL (0.0-0.2); Basophils % 0.9 % (0.0-0.8); Eosinophils # 0.1 10*3/uL (0.0-0.87); Eosinophils % 1.7 % (0.00-10.9); Hematocrit 37.4 VOL% (42.0-52.0); Hemoglobin 12.8 GM/DL (14.0-18.0); Immature Granulocytes % 0.2 %; Immature Granulocytes Absolute 0.01 #; Lymphocytes # 1.7 10*3/uL (1.4-4.0); Lymphocytes % 28.9 % (21.2-54.2); Mean Corpuscular HGB Conc 34.2 GM/DL (32-36); Mean Corpuscular Hemoglobin 32 PG (27-34); Mean Platelet Volume 11.1 FL (9.6-12.0); Monocytes # 0.6 10*3/uL (0.11-0.8); Monocytes % 10.6 % (1.7-12.7); Neutrophils # 3.3 10*3/uL (1.4-7.4); Neutrophils % 57.7 % (38.7-73.9); Platelet Count 210 T/CUMM (130-400); Red Blood Count 3.98 MC/CUMM (3.8-5.5); Red Cell Distribution Width 13.5 % (9.3-17.3); White Blood Count 5.8 T/CUMM (4-12)
[2017-05-26 05:54] LABS: Calcium 9.2 MG/DL (8.5-10.1); Magnesium 2.4 MG/DL (1.8-2.4); Osmolality,Calculated 276.7 MOS/KG (273-304); Potassium 3.3 MMOL/L (3.5-5.1)
[2017-05-26] MEDS: PANTOPRAZOLE 40 MG TABLET PO SCH (08:15)
[2017-05-26] MEDS: COLCHICINE 0.6 MG TABLET PO SCH (08:16)
[2017-05-26] MEDS: FERROUS SULFATE 325 MG TABLET PO SCH (08:16)
[2017-05-26] MEDS: DOCUSATE SODIUM 100 MG CAPSULE PO PRN (08:17)
[2017-05-26] MEDS: hydrALAZINE 25 MG TABLET PO SCH ×3 (08:17→21:21)
[2017-05-26] MEDS: ISOSORBIDE MONONITRATE 30 MG TABLET PO SCH (08:17)
[2017-05-26] MEDS: ASPIRIN EC 81 MG TABLET PO SCH (08:17)
[2017-05-26] MEDS: POTASSIUM CHLORIDE 20 MEQ TABLET PO SCH ×3 (08:17→21:21)
[2017-05-26] MEDS: CLOPIDOGREL 75 MG TABLET PO SCH (08:17)
[2017-05-26] MEDS: FUROSEMIDE 40 MG/4 ML VIAL IV SCH ×3 (08:17→21:18)
[2017-05-26] MEDS ORDERED: metOLazone 2.5 MG TABLET PO SCH (09:00)
--- NOTE | 2017-05-26 11:14 | Cardiology Progress Note ---
Assessment and Plan (1) CHF exacerbation Status: Acute Assessment and plan: 71-year-old black male, ischemic cardiomyopathy, ejection fraction 20%, left bundle branch block, QRS 125 ms. He was referred for JAVA J2EE LEAD-D upgrade and I was planning to see him next week. He developed progressive shortness of breath, weakness, and was hospitalized. He does not have significant peripheral edema, potassium 2.8, blood pressure was borderline low. Oxygen saturation 97-100. Mild acute kidney injury. Mild pulmonary congestion on x-ray Echo: Ejection fraction 20%, severe pulmonary hypertension, moderate MR, moderate to severe TR. -Severe systolic+diastolic CHF. Improving with hydralazine, Imdur, diuretics. Blood pressure stable. -Continue potassium repletion 40 mg 3 times daily p.o. He was unable to tolerate peripheral IV potassium. -Oxygen, morphine as needed for respiratory distress and pain. -Tranxene for anxiety -Hold off adding a beta-peewee at this time. He may be a candidate for Aldactone amd Entresto soon -Once his acute CHF exacerbation improves, we will plan to proceed with JAVA J2EE LEAD-D upgrade. Likely Saturday a.m., I plan to do this under MAC, call anesthesia consult Saturday, he will need defibrillator testing. No LV thrombus on current echo Current Visit: No Qualifiers: Congestive heart failure type: systolic (2) Acute exacerbation of chronic obstructive airways disease Status: Resolved Current Visit: No (3) Ischemic cardiomyopathy Status: Chronic Current Visit: No (4) Hypertension Status: Chronic Current Visit: No (5) Hyperlipidemia Status: Chronic Current Visit: No (6) LV (left ventricular) mural thrombus Status: Chronic Current Visit: No Cardiology - PN: Subj Interval history: He responded well to peripheral vasodilation and diuretics. Blood pressure stable. Orthopnea improved. Exam (Progress Note) - Constitutional Vitals: Period Temp Pulse Resp BP Sys/Gonsalez Pulse Ox Last 24 Hr 97.2 F-98.1 F 70-96 16-21 113-167/64-83 92-100 General appearance: normal weight, over weight - Head Head exam: Present: normal inspection, normocephalic - Eye Eye exam: Absent: conjunctival injection, scleral icterus Pupils: Absent: dilated - ENT ENT exam: Present: normal external ear exam - Neck Neck exam: Present: normal inspection - Respiratory Respiratory exam: Present: decreased breath sounds, prolonged expiratory phase, rhonchi - Cardiovascular Cardiovascular exam: Present: regular rate and rhythm, systolic murmur - GI/Abdominal GI/Abdominal exam: Present: normal bowel sounds. Absent: distended - Extremities Exam Extremities exam: Present: normal inspection, normal capillary refill. Absent: edema - Back Exam Back exam: Present: normal inspection - Neurological Exam Neurological exam: Present: alert, oriented X3 - Psychiatric Psychiatric exam: Present: normal affect, normal mood - Skin Skin exam: Present: normal color, warm. Absent: cyanosis Result/EKG - Labs CBC & BMP: 05/26/17 04:22 05/26/17 04:22 Lab Results: I have reviewed the past 24 hour labs Labs: Laboratory Results - last 24 hr 05/26/17 05/26/17 04:22 04:22 WBC 5.8 RBC 3.98 Hgb 12.8 L Hct 37.4 L MCV 94.0 MCH 32 MCHC 34.2 RDW 13.5 Plt Count 210 MPV 11.1 Neut % (Auto) 57.7 Lymph % (Auto) 28.9 [place] % (Auto) 10.6 Eos % (Auto) 1.7 Baso % (Auto) 0.9 H Neut # (Auto) 3.3 Lymph # (Auto) 1.7 [place] # (Auto) 0.6 Eos # (Auto) 0.1 Baso # (Auto) 0.1 Immature Gran % 0.2 Nucleated RBC % 0.0 Immature Gran # 0.01 Nucleated RBCs # 0.00 Immature Plt Fraction 0.0 Sodium 138 Potassium 3.3 L Chloride 97 L Carbon Dioxide 33 H Anion Gap 11.3 BUN 15 Creatinine 1.00 GFR Calculation 105 BUN/Creatinine Ratio 15.00 Glucose 124 H Calculated Osmolality 276.7 Calcium 9.2 Magnesium 2.4 - EKG EKG results: interpreted by me
[2017-05-26] MEDS: ACETAMINOPHEN 325 MG TABLET PO PRN (12:02)
[2017-05-26] MEDS: ENOXAPARIN 40 MG/0.4 ML SYRINGE SUBCUT SCH (14:59)
[2017-05-26] MEDS: PRAVASTATIN 40 MG TABLET PO SCH (21:22)
[2017-05-27] MEDS: ALBUTEROL/IPRATROPIUM 3 ML NEB RESP TX SCH ×6 (02:40→22:28)
[2017-05-27 04:42] LABS: Basophils # 0.1 10*3/uL (0.0-0.2); Basophils % 0.8 % (0.0-0.8); Eosinophils # 0.2 10*3/uL (0.0-0.87); Eosinophils % 2.9 % (0.00-10.9); Hematocrit 40.2 VOL% (42.0-52.0); Hemoglobin 13.8 GM/DL (14.0-18.0); Immature Granulocytes % 0.5 %; Immature Granulocytes Absolute 0.03 #; Lymphocytes # 2.4 10*3/uL (1.4-4.0); Lymphocytes % 37.2 % (21.2-54.2); Mean Corpuscular HGB Conc 34.3 GM/DL (32-36); Mean Corpuscular Hemoglobin 32 PG (27-34); Mean Corpuscular Volume 94.1 FL (87-102); Mean Platelet Volume 11.4 FL (9.6-12.0); Monocytes # 0.6 10*3/uL (0.11-0.8); Monocytes % 9.5 % (1.7-12.7); Neutrophils # 3.2 10*3/uL (1.4-7.4); Neutrophils % 49.1 % (38.7-73.9); Platelet Count 236 T/CUMM (130-400); Red Blood Count 4.27 MC/CUMM (3.8-5.5); Red Cell Distribution Width 13.4 % (9.3-17.3); White Blood Count 6.5 T/CUMM (4-12)
[2017-05-27 05:22] LABS: Calcium 9.2 MG/DL (8.5-10.1); Magnesium 2.3 MG/DL (1.8-2.4); Osmolality,Calculated 276.7 MOS/KG (273-304); Potassium 3.4 MMOL/L (3.5-5.1)
[2017-05-27] MEDS: FUROSEMIDE 40 MG/4 ML VIAL IV SCH ×3 (09:11→21:53)
[2017-05-27] MEDS: ASPIRIN EC 81 MG TABLET PO SCH (09:42)
[2017-05-27] MEDS: CLOPIDOGREL 75 MG TABLET PO SCH (09:43)
[2017-05-27] MEDS: hydrALAZINE 25 MG TABLET PO SCH ×3 (09:43→21:53)
[2017-05-27] MEDS: ISOSORBIDE MONONITRATE 30 MG TABLET PO SCH (09:43)
[2017-05-27] MEDS: COLCHICINE 0.6 MG TABLET PO SCH (09:43)
[2017-05-27] MEDS: FERROUS SULFATE 325 MG TABLET PO SCH (09:43)
[2017-05-27] MEDS: PANTOPRAZOLE 40 MG TABLET PO SCH (09:43)
[2017-05-27] MEDS: POTASSIUM CHLORIDE 20 MEQ TABLET PO SCH ×3 (09:43→21:52)
--- NOTE | 2017-05-27 10:40 | Cardiology Progress Note ---
Addendum entered and electronically signed by Patricia Clayton NP 05/27/17 13:47 : I have discussed this case with Dr. Colvin. He plans for BI V ICD update on Saturday morning. Will keep patient n.p.o. after midnight Saturday. Original Note: Assessment and Plan (1) Acute on chronic congestive heart failure Status: Acute Assessment and plan: SEE PLAN OF CARE LISTED BELOW. Current Visit: Yes Qualifiers: Congestive heart failure type: combined Qualified Code(s): I50.43 - Acute on chronic combined systolic (congestive) and diastolic (congestive) heart failure (2) COPD exacerbation Status: Acute Assessment and plan: SEE PLAN OF CARE LISTED BELOW. Current Visit: Yes (3) Ischemic cardiomyopathy Status: Chronic Assessment and plan: SEE PLAN OF CARE LISTED BELOW. Current Visit: Yes (4) CAD (coronary artery disease) Status: Chronic Assessment and plan: SEE PLAN OF CARE LISTED BELOW. Current Visit: No (5) Dyslipidemia Status: Chronic Assessment and plan: SEE PLAN OF CARE LISTED BELOW. Current Visit: Yes (6) Tobacco abuse Status: Chronic Assessment and plan: SEE PLAN OF CARE LISTED BELOW. Current Visit: Yes (7) Tricuspid regurgitation Status: Chronic Assessment and plan: SEE PLAN OF CARE LISTED BELOW. Current Visit: Yes (8) LV (left ventricular) mural thrombus Status: Chronic Assessment and plan: SEE PLAN OF CARE LISTED BELOW. Current Visit: No (9) Hypokalemia Status: Acute Assessment and plan: SEE PLAN OF CARE LISTED BELOW. Current Visit: Yes Cardiology - PN: Subj Interval history: Modeling Analyst: Dr. Emelyn Higginbotham SUMMARY Mr. Wesis is a 71 year old male with known history of coronary artery disease, routinely followed by Dr. Higginbotham. Patient has coronary risk factors significant for hypertension, dyslipidemia, known CAD, current everyday smoker and advanced age. Patient has past medical history of ischemic cardiomyopathy (most recent ejection fraction 15-20% per echo April 2017), COPD, left ventricular thrombus, LVH, MR and non-ST elevation NM. His most recent heart catheterization was performed July 2016, received PCI to ramus intermedius. Remains on aspirin and Plavix, reports compliance. Status post coronary artery bypass grafting. His SVG to obtuse marginal artery noted to be occluded. Status post stent to SVG to first diagonal in December 2015. He does have ICD. Per Dr. Emelyn Higginbotham since last night, he is scheduled to see Dr. Colvin May 27 for discussion of upgrade to BI V ICD. Most recent echocardiogram was performed April 2017. At that time, he was noted to have severely depressed LV systolic function, ejection fraction 15-20%. There is global hypokinesis. Grade 3 diastolic dysfunction. Mild concentric LVH. There is an old organized apical mural thrombus noted. Moderate MR, mild to moderate pulmonic regurgitation and moderate to severe TR. Patient presented to [facility] with complaints of shortness of breath. Upon arrival to the emergency department, he was noted to be severely hypokalemic. He appeared slightly dehydrated per labs. Patient was admitted under cardiology service and housed the telemetry unit. Zaroxolyn was discontinued. Potassium was repleted. Once stable, will plan for ICD upgrade. Echocardiogram was performed which revealed decreased LV systolic function of 20%. No LV thrombus noted. Grade 3 diastolic dysfunction. Moderate MR. Mild AI. Moderate to severe TR with severe pulmonary hypertension noted. MAY 27, 2017 Patient was seen and examined on the telemetry unit. He is sitting up in chair without any acute distress. Reports that his breathing has greatly improved over the weekend. He reports that it appears to be back to its baseline. According to his I's and O's, he has diuresed well. He has lost 6 pounds since admission. Potassium is stable this morning at 3.4. Continue with p.o. potassium. Daily BMP. Dr. Colvin plans for ICD upgrade tomorrow to Bi V ICD. Anesthesia has been consulted today. Vital signs are stable. Labs been reviewed. Brief episodes of nonsustained ventricular tachycardia noted per telemetry. Patient does have a ICD in place. Will further discuss with Dr. mcgee await his additional recommendations. We will keep patient n.p.o. after midnight tonight for possible ICD upgrade tomorrow. ASSESSMENT/PLAN: 1. ACUTE ON CHRONIC CONGESTIVE HEART FAILURE, COMBINED SYSTOLIC AND DIASTOLIC DYSFUNCTION - Now compensated. Patient has severe systolic plus diastolic congestive heart failure. Ejection fraction 20% per echocardiogram this admission. Grade 3 diastolic dysfunction noted. This is greatly improved with hydralazine, Imdur and diuretics. Will continue to monitor potassium closely with Lasix. Continue potassium chloride 40 mEq 3 times daily per daily BMP. Holding off on adding beta blockade as patient's blood pressure will not tolerate at this time. Can consider Entresto and Aldactone prior to discharge, his blood pressure will tolerate. Echocardiogram did not reveal LV thrombus. Will plan for biventricular ICD upgrade, possibly tomorrow morning per Dr. Colvin. We will keep patient n.p.o. after midnight. I will further discuss with Dr. mcgee await his additional recommendations. 2. ACUTE COPD EXACERBATION - Compensated. No further wheezing continue duo nebs. 3. HYPOKALEMIA - Improving. Continue with p.o. potassium. Can consider Aldactone prior to discharge. 4. HISTORY OF ISCHEMIC CARDIOMYOPATHY - Most recent ejection fraction 20%. Plan for biventricular ICD upgrade. Will hold off on adding beta blockade as patient's blood pressure will not tolerate at this time. Can consider Entresto and/or Aldactone prior to discharge if his blood pressure will tolerate. 5. HISTORY OF CAD - Recently underwent PCI July 2016. Patient remains on dual antiplatelet therapy. This will be continued this hospitalization. Continue lipid-lowering agent as well as beta-blockade. 6. DYSLIPIDEMIA - Lipid lowering agent changed to Crestor, high intensity statin as his LDL was not at goal. Lipid panel will need to be rechecked in 4- 6 weeks 7. CURRENT EVERYDAY SMOKER - Smoking cessation encouraged. 8. HISTORY OF LV THROMBUS - Resolved. No LV thrombus noted on echocardiogram this admission. 9. TRICUSPID REGURGITATION - Moderate to severe TR noted per most recent echocardiogram. Continue current plan of care. Exam (Progress Note) - Constitutional Vitals: Period Temp Pulse Resp BP Sys/Gonsalez Pulse Ox Last 24 Hr 97 F-98.2 F 61-92 16-20 86-115/46-74 93-100 Exam: General: Appears well with no apparent distress. Pleasant and cooperative. Appears comfortable. HEENT: PERRL, normocephalic, atraumatic. Mucous membranes moist. No jaundice noted. Conjunctiva moist and clear, sclerae anicteric Neck: No JVD/HJR, no thyromegaly or lymphadenopathy noted. No carotid bruit appreciated Cardiac: Regular rate and rhythm. Systolic murmur. Lungs: Decreased breath sounds, minimal rhonchi. Not requiring oxygen. Abdomen: Soft, bowel sounds normoactive. Nontender and nondistended. No abdominal bruit or thrill noted. No masses noted. Extremities: No clubbing, cyanosis noted. No edema noted. Upper extremity pulses 2+. Lower extremity pulses 2+. Capillary refill less than 3 seconds. Skin: No unusual lesions or rashes. No skin breakdown appreciated. Neuro: Awake, alert and oriented 3. Moves all extremities well without hemiparesis or paralysis. No essential tremor is appreciated. Result/EKG - Labs CBC & BMP: 05/27/17 03:49 05/27/17 03:49 Lab Results: I have reviewed the past 24 hour labs Labs: Laboratory Results - last 24 hr 05/27/17 05/27/17 03:49 03:49 WBC 6.5 RBC 4.27 Hgb 13.8 L Hct 40.2 L MCV 94.1 MCH 32 MCHC 34.3 RDW 13.4 Plt Count 236 MPV 11.4 Neut % (Auto) 49.1 Lymph % (Auto) 37.2 [place] % (Auto) 9.5 Eos % (Auto) 2.9 Baso % (Auto) 0.8 Neut # (Auto) 3.2 Lymph # (Auto) 2.4 [place] # (Auto) 0.6 Eos # (Auto) 0.2 Baso # (Auto) 0.1 Immature Gran % 0.5 Nucleated RBC % 0.0 Immature Gran # 0.03 Nucleated RBCs # 0.00 Immature Plt Fraction 0.0 Sodium 138 Potassium 3.4 L Chloride 99 Carbon Dioxide 31 Anion Gap 11.4 BUN 15 Creatinine 1.20 GFR Calculation 83 BUN/Creatinine Ratio 12.00 Glucose 117 H Calculated Osmolality 276.7 Calcium 9.2 Magnesium 2.3
[2017-05-27] MEDS: MELOXICAM 7.5 MG TABLET PO SCH (11:38)
[2017-05-27] MEDS: ENOXAPARIN 40 MG/0.4 ML SYRINGE SUBCUT SCH (15:39)
[2017-05-27] MEDS: CLORAZEPATE 7.5 MG TABLET PO PRN (15:41)
--- NOTE | 2017-05-27 17:06 | Electrophysiology Progress Not ---
Assessment and Plan (1) CHF exacerbation Status: Acute Assessment and plan: 71-year-old black male, ischemic cardiomyopathy, ejection fraction 20%, left bundle branch block, QRS 125 ms. He was referred for IT APPLICATION SUPPORT ANALYST-D upgrade and I was planning to see him next week. He developed progressive shortness of breath, weakness, and was hospitalized. He does not have significant peripheral edema, potassium 2.8, blood pressure was borderline low. Oxygen saturation 97-100. Mild acute kidney injury. Mild pulmonary congestion on x-ray Echo: Ejection fraction 20%, severe pulmonary hypertension, moderate MR, moderate to severe TR. -He responded well to diuretics, vasodilators, although the blood pressure is now trending lower. -We will plan to proceed with upgrade to IT APPLICATION SUPPORT ANALYST-D, with defibrillator testing, Saturday a.m. plan to perform in MAC -History of LV clot, none on recent TTE -Hold off adding a beta-peewee at this time. NYHA IV, with recent decompensation. He may be a candidate for Aldactone amd Entresto soon Current Visit: No Qualifiers: Congestive heart failure type: systolic (2) Acute exacerbation of chronic obstructive airways disease Status: Resolved Current Visit: No (3) Ischemic cardiomyopathy Status: Chronic Current Visit: No (4) Hypertension Status: Chronic Current Visit: No (5) Hyperlipidemia Status: Chronic Current Visit: No (6) LV (left ventricular) mural thrombus Status: Chronic Current Visit: No Electrophysiology Subjective Interval history: He is feeling better, now able to lay flat. The blood pressure borderline low, he is not symptomatic at rest Exam - Constitutional Vitals: Period Temp Pulse Resp BP Sys/Gonsalez Pulse Ox Last 24 Hr 97.2 F-98.2 F 60-92 16-20 86-123/46-74 96-100 General appearance: normal weight, no acute distress - Head Head exam: Present: normal inspection - Eye Eye exam: Absent: conjunctival injection Pupils: Absent: dilated - ENT ENT exam: Present: normal external ear exam - Neck Neck exam: Present: normal inspection - Respiratory Respiratory exam: Present: clear to auscultation bilaterally. Absent: wheezes - Cardiovascular Cardiovascular exam: Present: regular rate and rhythm, systolic murmur - GI/Abdominal GI/Abdominal exam: Present: normal bowel sounds. Absent: distended - Extremities Exam Extremities exam: Present: normal inspection, normal capillary refill. Absent: edema - Back Exam Back exam: Present: normal inspection - Neurological Exam Neurological exam: Present: alert, oriented X3 - Psychiatric Psychiatric exam: Present: normal affect, normal mood - Skin Skin exam: Present: normal color, warm. Absent: cyanosis Results - Labs CBC & BMP: 05/27/17 03:49 05/27/17 03:49 Lab Results: I have reviewed the past 24 hour labs
[2017-05-27] MEDS: ROSUVASTATIN 20 MG TABLET PO SCH (21:53)
[2017-05-28] MEDS: ALBUTEROL/IPRATROPIUM 3 ML NEB RESP TX SCH ×3 (02:55→10:00)
[2017-05-28 05:14] LABS: Basophils # 0.1 10*3/uL (0.0-0.2); Basophils % 0.8 % (0.0-0.8); Eosinophils # 0.2 10*3/uL (0.0-0.87); Hematocrit 41.1 VOL% (42.0-52.0); Immature Granulocytes % 0.3 %; Immature Granulocytes Absolute 0.02 #; Lymphocytes # 2.3 10*3/uL (1.4-4.0); Lymphocytes % 35.6 % (21.2-54.2); Mean Corpuscular HGB Conc 34.1 GM/DL (32-36); Mean Corpuscular Hemoglobin 32 PG (27-34); Mean Corpuscular Volume 94.3 FL (87-102); Mean Platelet Volume 10.7 FL (9.6-12.0); Monocytes # 0.7 10*3/uL (0.11-0.8); Monocytes % 10.6 % (1.7-12.7); Neutrophils # 3.1 10*3/uL (1.4-7.4); Neutrophils % 49.7 % (38.7-73.9); Platelet Count 238 T/CUMM (130-400); Red Blood Count 4.36 MC/CUMM (3.8-5.5); Red Cell Distribution Width 13.3 % (9.3-17.3); White Blood Count 6.3 T/CUMM (4-12)
[2017-05-28 05:50] LABS: Calcium 9.5 MG/DL (8.5-10.1); Magnesium 2.4 MG/DL (1.8-2.4); Osmolality,Calculated 276.7 MOS/KG (273-304); Potassium 3.6 MMOL/L (3.5-5.1)
[2017-05-28] MEDS ORDERED: ceFAZolin 1,000 MG VIAL IRRIG ONE (08:03)
--- NOTE | 2017-05-28 08:03 | Electrophysiology Progress Not ---
Assessment and Plan (1) CHF exacerbation Status: Acute Assessment and plan: 71-year-old black male, ischemic cardiomyopathy, ejection fraction 20%, left bundle branch block, QRS 125 ms. He was referred for C2 TACTICAL ANALYSIS TECHNICIAN-D upgrade and I was planning to see him next week. He developed progressive shortness of breath, weakness, and was hospitalized. He does not have significant peripheral edema, potassium 2.8, blood pressure was borderline low. Oxygen saturation 97-100. Mild acute kidney injury. Mild pulmonary congestion on x-ray Echo: Ejection fraction 20%, severe pulmonary hypertension, moderate MR, moderate to severe TR. -He responded well to diuretics, vasodilators, although the blood pressure is now trending lower. -Diuresed well with Lasix, orthopnea resolved. Borderline low BP. Recommend to decrease Lasix to 20 mg bid -We will plan to proceed with upgrade to C2 TACTICAL ANALYSIS TECHNICIAN-D, with defibrillator testing, Saturday a.m. plan to perform in MAC. NPO after MN -History of LV clot, none on recent TTE -Hold off adding a beta-peewee at this time. NYHA IV, with recent decompensation. He may be a candidate for Aldactone amd Entresto soon Current Visit: No Qualifiers: Congestive heart failure type: systolic (2) Acute exacerbation of chronic obstructive airways disease Status: Resolved Current Visit: No (3) Ischemic cardiomyopathy Status: Chronic Current Visit: No (4) Hypertension Status: Chronic Current Visit: No (5) Hyperlipidemia Status: Chronic Current Visit: No (6) LV (left ventricular) mural thrombus Status: Chronic Current Visit: No Electrophysiology Subjective Interval history: He is feeling better. Able to lay flat now. Had hypotension yesterday, diuresed well. K improving. Exam - Constitutional Vitals: Period Temp Pulse Resp BP Sys/Gonsalez Pulse Ox Last 24 Hr 97.6 F-98.3 F 60-78 18-20 84-123/56-72 96-100 General appearance: normal weight, no acute distress - Head Head exam: Present: normal inspection - Eye Eye exam: Absent: conjunctival injection, scleral icterus Pupils: Absent: dilated - ENT ENT exam: Present: normal external ear exam - Neck Neck exam: Present: normal inspection - Respiratory Respiratory exam: Present: other (coarse breath sounds) - Cardiovascular Cardiovascular exam: Present: regular rate and rhythm, systolic murmur. Absent : JVD - GI/Abdominal GI/Abdominal exam: Present: normal bowel sounds. Absent: distended - Extremities Exam Extremities exam: Present: normal inspection, normal capillary refill, edema (1+ ) - Back Exam Back exam: Present: normal inspection - Neurological Exam Neurological exam: Present: alert, oriented X3 - Psychiatric Psychiatric exam: Present: normal affect, normal mood - Skin Skin exam: Present: normal color, warm. Absent: cyanosis Results - Labs CBC & BMP: 05/28/17 04:54 05/28/17 04:54 Lab Results: I have reviewed the past 24 hour labs
[2017-05-28] MEDS ORDERED: MELOXICAM 7.5 MG TABLET PO SCH (09:00)
[2017-05-28] MEDS ORDERED: FUROSEMIDE 40 MG/4 ML VIAL IV SCH ×2 (09:00)
--- NOTE | 2017-05-28 09:18 | Cardiology Progress Note ---
Assessment and Plan (1) Acute on chronic congestive heart failure Status: Acute Assessment and plan: SEE PLAN OF CARE LISTED BELOW. Current Visit: Yes Qualifiers: Congestive heart failure type: combined Qualified Code(s): I50.43 - Acute on chronic combined systolic (congestive) and diastolic (congestive) heart failure (2) COPD exacerbation Status: Acute Assessment and plan: SEE PLAN OF CARE LISTED BELOW. Current Visit: Yes (3) Ischemic cardiomyopathy Status: Chronic Assessment and plan: SEE PLAN OF CARE LISTED BELOW. Current Visit: Yes (4) CAD (coronary artery disease) Status: Chronic Assessment and plan: SEE PLAN OF CARE LISTED BELOW. Current Visit: No (5) Dyslipidemia Status: Chronic Assessment and plan: SEE PLAN OF CARE LISTED BELOW. Current Visit: Yes (6) Tobacco abuse Status: Chronic Assessment and plan: SEE PLAN OF CARE LISTED BELOW. Current Visit: Yes (7) Tricuspid regurgitation Status: Chronic Assessment and plan: SEE PLAN OF CARE LISTED BELOW. Current Visit: Yes (8) LV (left ventricular) mural thrombus Status: Chronic Assessment and plan: SEE PLAN OF CARE LISTED BELOW. Current Visit: No (9) Hypokalemia Status: Acute Assessment and plan: SEE PLAN OF CARE LISTED BELOW. Current Visit: Yes Cardiology - PN: Subj Interval history: Research Anthropologist: Dr. Emelyn Higginbotham SUMMARY Mr. Weiss is a 71 year old male with known history of coronary artery disease, routinely followed by Dr. Higginbotham. Patient has coronary risk factors significant for hypertension, dyslipidemia, known CAD, current everyday smoker and advanced age. Patient has past medical history of ischemic cardiomyopathy (most recent ejection fraction 15-20% per echo April 2017), COPD, left ventricular thrombus, LVH, MR and non-ST elevation [place]. His most recent heart catheterization was performed July 2016, received PCI to ramus intermedius. Remains on aspirin and Plavix, reports compliance. Status post coronary artery bypass grafting. His SVG to obtuse marginal artery noted to be occluded. Status post stent to SVG to first diagonal in December 2015. He does have ICD. Per Dr. Emelyn Higginbotham since last night, he is scheduled to see Dr. Colvin May 27 for discussion of upgrade to BI V ICD. Most recent echocardiogram was performed April 2017. At that time, he was noted to have severely depressed LV systolic function, ejection fraction 15-20%. There is global hypokinesis. Grade 3 diastolic dysfunction. Mild concentric LVH. There is an old organized apical mural thrombus noted. Moderate MR, mild to moderate pulmonic regurgitation and moderate to severe TR. Patient presented to [facility] with complaints of shortness of breath. Upon arrival to the emergency department, he was noted to be severely hypokalemic. He appeared slightly dehydrated per labs. Patient was admitted under cardiology service and housed the telemetry unit. Zaroxolyn was discontinued. Potassium was repleted. Once stable, will plan for ICD upgrade. Echocardiogram was performed which revealed decreased LV systolic function of 20%. No LV thrombus noted. Grade 3 diastolic dysfunction. Moderate MR. Mild AI. Moderate to severe TR with severe pulmonary hypertension noted. MAY 28, 2017 Patient was seen and examined on the telemetry unit. He is doing well this morning without complaints. No respiratory distress. Reports that his breathing appears to be back to his baseline. Heart failure appears to be compensated. Patient has lost 6 pounds since admission. Lasix has been decreased today. Potassium is now within normal limits. Daily BMP. Vital signs are stable. Dr. Colvin plans to upgrade his ICD to a Bi V ICD. Anesthesia has been consulted. Did have nonsustained VT yesterday evening. He does have ICD in place. Electrolytes within acceptable limits. Will further discuss with Dr. mcgee await his additional recommendations. We will keep patient n.p.o. after midnight tonight for possible ICD upgrade tomorrow. Hopeful for discharge home . ASSESSMENT/PLAN: 1. ACUTE ON CHRONIC CONGESTIVE HEART FAILURE, COMBINED SYSTOLIC AND DIASTOLIC DYSFUNCTION - Now compensated. Patient has severe systolic plus diastolic congestive heart failure. Ejection fraction 20% per echocardiogram this admission. Grade 3 diastolic dysfunction noted. This is greatly improved with hydralazine, Imdur and diuretics. Decrease Lasix to 20 twice daily today. Will continue to monitor potassium closely with Lasix. Holding off on adding beta blockade as patient's blood pressure will not tolerate at this time. Can consider Entresto and Aldactone prior to discharge, if his blood pressure will tolerate. Echocardiogram did not reveal LV thrombus. Will plan for biventricular ICD upgrade, tomorrow morning per Dr. Colvin. We will keep patient n.p.o. after midnight. I will further discuss with Dr. mcgee await his additional recommendations. 2. ACUTE COPD EXACERBATION - Compensated. No further wheezing continue duo nebs. 3. HYPOKALEMIA - Resolved. Continue with p.o. potassium. Can consider Aldactone prior to discharge. 4. HISTORY OF ISCHEMIC CARDIOMYOPATHY - Most recent ejection fraction 20%. Plan for biventricular ICD upgrade. Will hold off on adding beta blockade as patient's blood pressure will not tolerate at this time. Can consider Entresto and/or Aldactone prior to discharge if his blood pressure will tolerate. 5. HISTORY OF CAD - Recently underwent PCI July 2016. Patient remains on dual antiplatelet therapy. This will be continued this hospitalization. Continue lipid-lowering agent as well as beta-blockade. 6. DYSLIPIDEMIA - Lipid lowering agent changed to Crestor, high intensity statin as his LDL was not at goal. Lipid panel will need to be rechecked in 4- 6 weeks 7. CURRENT EVERYDAY SMOKER - Smoking cessation encouraged. 8. HISTORY OF LV THROMBUS - Resolved. No LV thrombus noted on echocardiogram this admission. 9. TRICUSPID REGURGITATION - Moderate to severe TR noted per most recent echocardiogram. Continue current plan of care. Exam (Progress Note) - Constitutional Vitals: Period Temp Pulse Resp BP Sys/Gonsalez Pulse Ox Last 24 Hr 97.4 F-98.3 F 60-94 17-20 84-123/56-72 96-100 Exam: General: Appears well with no apparent distress. Pleasant and cooperative. Appears comfortable. HEENT: PERRL, normocephalic, atraumatic. Mucous membranes moist. No jaundice noted. Conjunctiva moist and clear, sclerae anicteric Neck: No JVD/HJR, no thyromegaly or lymphadenopathy noted. No carotid bruit appreciated Cardiac: Regular rate and rhythm. Systolic murmur. Lungs: Decreased breath sounds, minimal rhonchi. Not requiring oxygen. Abdomen: Soft, bowel sounds normoactive. Nontender and nondistended. No abdominal bruit or thrill noted. No masses noted. Extremities: No clubbing, cyanosis noted. No edema noted. Upper extremity pulses 2+. Lower extremity pulses 2+. Capillary refill less than 3 seconds. Skin: No unusual lesions or rashes. No skin breakdown appreciated. Neuro: Awake, alert and oriented 3. Moves all extremities well without hemiparesis or paralysis. No essential tremor is appreciated. Result/EKG - Labs CBC & BMP: 05/28/17 04:54 05/28/17 04:54 Lab Results: I have reviewed the past 24 hour labs Labs: Laboratory Results - last 24 hr 05/28/17 05/28/17 04:54 04:54 WBC 6.3 RBC 4.36 Hgb 14.0 Hct 41.1 L MCV 94.3 MCH 32 MCHC 34.1 RDW 13.3 Plt Count 238 MPV 10.7 Neut % (Auto) 49.7 Lymph % (Auto) 35.6 [place] % (Auto) 10.6 Eos % (Auto) 3.0 Baso % (Auto) 0.8 Neut # (Auto) 3.1 Lymph # (Auto) 2.3 [place] # (Auto) 0.7 Eos # (Auto) 0.2 Baso # (Auto) 0.1 Immature Gran % 0.3 Nucleated RBC % 0.0 Immature Gran # 0.02 Nucleated RBCs # 0.00 Immature Plt Fraction 0.0 Sodium 138 Potassium 3.6 Chloride 101 Carbon Dioxide 29 Anion Gap 11.6 BUN 13 Creatinine 1.20 GFR Calculation 83 BUN/Creatinine Ratio 10.00 Glucose 128 H Calculated Osmolality 276.7 Calcium 9.5 Magnesium 2.4
[2017-05-28] MEDS: hydrALAZINE 25 MG TABLET PO SCH ×3 (09:31→20:59)
[2017-05-28] MEDS: ASPIRIN EC 81 MG TABLET PO SCH (09:31)
[2017-05-28] MEDS: FERROUS SULFATE 325 MG TABLET PO SCH (09:31)
[2017-05-28] MEDS: COLCHICINE 0.6 MG TABLET PO SCH (09:31)
[2017-05-28] MEDS: ISOSORBIDE MONONITRATE 30 MG TABLET PO SCH (09:32)
[2017-05-28] MEDS: CLOPIDOGREL 75 MG TABLET PO SCH (09:32)
[2017-05-28] MEDS: POTASSIUM CHLORIDE 20 MEQ TABLET PO SCH ×3 (09:32→20:58)
[2017-05-28] MEDS: MELOXICAM 7.5 MG TABLET PO SCH (09:32)
[2017-05-28] MEDS: PANTOPRAZOLE 40 MG TABLET PO SCH (09:32)
[2017-05-28] MEDS: CLORAZEPATE 7.5 MG TABLET PO PRN ×2 (09:34→20:58)
--- NOTE | 2017-05-28 13:49 | Pulmonology Consult Note ---
Assessment and Plan (1) Tobacco dependence Status: Acute Assessment and plan: Patient has been a lifelong smoker and certainly needs to quit smoking. Current Visit: No (2) Acute on chronic congestive heart failure Status: Acute Assessment and plan: The patient came in with some volume overload and is diuresed well. His weight is down a couple kilograms. Current Visit: Yes Qualifiers: Congestive heart failure type: combined Qualified Code(s): I50.43 - Acute on chronic combined systolic (congestive) and diastolic (congestive) heart failure (3) COPD exacerbation Status: Acute Assessment and plan: The patient has had some coughing and wheezing although he is a little better. He certainly has some COPD. Will continue with long-acting bronchodilator therapy. Current Visit: Yes (4) Ischemic cardiomyopathy Status: Chronic Assessment and plan: The patient has an ejection fraction of 20% and has had heart failure. He does have a defibrillator in place. Current Visit: Yes History of Present Illness Chief complaint: Shortness of breath History of present illness: Mr. Weiss is a 71 year old black male that has a history of hypertension and coronary artery disease and has an ischemic cardiomyopathy. He is also a smoker. He came in with increasing shortness of breath and was felt to be in some heart failure. He says he is diuresed well and is getting rid of fluid. He also is a smoker with likely some COPD. He does cough and wheeze at times. He says he uses albuterol as needed. He has had previous bypass surgery along with an ICD in place. His ejection fraction is around 20%. He says overall he is feeling better at present. Home Medications Medication Instructions Recorded Confirmed Type Pravastatin Sodium 80 mg PO BEDTIME 11/18/15 05/24/17 History Albuterol Inhaler [Proventil 2 puff INH Q6HR 01/04/16 05/24/17 History Inhaler] Furosemide Tab [Lasix Tab] 40 mg PO BID 07/16/16 05/24/17 History Omeprazole [Prilosec] 20 mg PO QAM 07/16/16 05/24/17 History Potassium Chloride 20 meq PO BID 07/16/16 05/24/17 History Colchicine [Colcrys] 0.6 mg PO DAILY 10/07/16 05/24/17 History HYDROcodone/ACETAMIN 10-325 [[place] 1 tablet PO Q6H PRN 10/07/16 05/24/17 History 10-325] Aspirin EC Tab 81 mg PO QAM 05/24/17 05/24/17 History Carvedilol [Carvedilol] 6.25 mg PO BID 05/24/17 05/24/17 History Clopidogrel [Plavix] 75 mg PO QAM 05/24/17 05/24/17 History Ferrous Sulfate 325 mg PO QAM 05/24/17 05/24/17 History Meloxicam [Meloxicam] 7.5 mg PO QAM 05/24/17 05/24/17 History metOLazone [Metolazone] 2.5 mg PO QOTHER DAY 05/24/17 05/24/17 History Allergies Allergy/AdvReac Type Severity Reaction Status Date / Time No Known Allergies Allergy Verified 05/24/17 11:04 - Constitutional Constitutional: Present: fatigue, weakness, weight gain. Absent: chills, fever( s), weight loss - EENT Eyes: Absent: loss of vision Ears: Absent: decreased hearing Nose, mouth and throat: Absent: dysphagia, headache(s), sinus pressure - Cardiovascular Cardiovascular: Present: dyspnea, edema, orthopnea, PND. Absent: chest pain at rest, chest pain with activity - Respiratory Respiratory: Present: cough, wheezing. Absent: hemoptysis, change in phlegm color - Gastrointestinal Gastrointestinal: Absent: abdominal pain, change in bowel habits, dysphagia, nausea, vomiting - Genitourinary Genitourinary: Absent: difficulty urinating, dysuria, hematuria - Musculoskeletal Musculoskeletal: Absent: arthralgias, muscle weakness - Neurological Neurological: Absent: abnormal speech, focal weakness - Psychiatric Psychiatric: Absent: anxiety Exam (Pulmonay) H&P - Constitutional Vitals: Period Temp Pulse Resp BP Sys/Gonsalez Pulse Ox Last 24 Hr 97.4 F-98.3 F 71-94 17-20 84-120/56-72 96-100 General appearance: normal weight, no acute distress (The patient looks comfortable sitting up now.) - Head Head exam: Present: normal inspection, normocephalic - Eye Eye exam: Present: EOMI. Absent: scleral icterus Pupils: Present: MING - ENT ENT exam: Present: normal exam - Neck Neck exam: Present: normal inspection. Absent: lymphadenopathy, thyromegaly - Respiratory Respiratory exam: Present: rales, other (Patient apparently is better and his lungs sound fairly clear with no definite wheezing now. He has some crackles in the bases.). Absent: accessory muscle use, wheezes - Cardiovascular Cardiovascular exam: Present: regular rate and rhythm, systolic murmur (He does have a soft systolic murmur.). Absent: gallop, JVD - GI/Abdominal GI/Abdominal exam: Present: normal bowel sounds, soft. Absent: organomegaly, tenderness - Extremities Exam Extremities exam: Absent: calf tenderness, edema - Neurological Exam Neurological exam: Present: alert, oriented X3, CN II-XII intact. Absent: motor sensory deficit - Psychiatric Psychiatric exam: Present: normal affect, normal mood - Skin Skin exam: Present: warm, dry Medical,Surgical,& Family Hx - Medical History Cardio: History of: Cardiac Dysrhythmia, CHF, CAD, Hypertension, MS, Pacemaker ( icd), Cardiovascular Problems (4 Bypass, History of LV thrombus) Psychological: Comment Only: Anxiety Disorders (possible anxiety) Neurology: No history of: Seizures Endocrine: History of: Dyslipidemia No history of: Diabetes Mellitus (NIDDM) Rheumatology: History of;: Gout Respiratory: History of: COPD, Pulmonary Embolism, Pneumonia Gastrointestinal: History of: GERD, Polyps Musculoskeletal: History of: Musculoskeletal Problems (hx of left leg break, sees pain mgmt for tx) Hematology: History of: Anemia No history of: Blood Transfusion Reaction Reproductive: Reports: Reproductive Problems (ED) Other: No history of: HIV, MRSA - Surgical History Cardiac Surgeries: Sugical HX of: Cardiac Catheterization (done 01/04/16), Cardiac Surgery (2003), Internal Defibrillator Thoracic Surgeries: Patient denies;: Organ Transplant Abdominal Surgeries: Surgical HX of: Colonoscopy, EGD Reproductive Surgeries: Patient denies;: Genitourinary Surgery - Family History Family History: Reports;: Family Cancer (mom and dad), Family Diabetes (mom), Family Hypertension - Social History Smoking Status: Current every day smoker Frequency of Alcohol Use: Occasionally Type of Drug Use: Marijuana Results - Labs CBC & BMP: 05/28/17 04:54 05/28/17 04:54 - Diagnostic Findings Procedure: Chest x-ray: image reviewed by me, report reviewed by me (Chest x- ray shows cardiomegaly with no overt heart failure now.)
[2017-05-28] MEDS ORDERED: FUROSEMIDE 20 MG TABLET PO SCH (16:00)
[2017-05-28] MEDS: FUROSEMIDE 20 MG/2 ML VIAL IV SCH (17:29)
[2017-05-28] MEDS: ENOXAPARIN 40 MG/0.4 ML SYRINGE SUBCUT SCH (17:35)
[2017-05-28] MEDS: ARFORMOTEROL 15 MCG/2 ML NEB RESP TX SCH (19:42)
[2017-05-28] MEDS: ZALEPLON 5 MG CAPSULE PO PRN (20:58)
[2017-05-28] MEDS: ROSUVASTATIN 20 MG TABLET PO SCH (20:58)
[2017-05-29 05:29] LABS: Basophils # 0.1 10*3/uL (0.0-0.2); Eosinophils # 0.2 10*3/uL (0.0-0.87); Eosinophils % 3.9 % (0.00-10.9); Hematocrit 41.8 VOL% (42.0-52.0); Hemoglobin 13.9 GM/DL (14.0-18.0); Immature Granulocytes % 0.5 %; Immature Granulocytes Absolute 0.03 #; Lymphocytes # 2.2 10*3/uL (1.4-4.0); Lymphocytes % 37.4 % (21.2-54.2); Mean Corpuscular HGB Conc 33.3 GM/DL (32-36); Mean Corpuscular Hemoglobin 31 PG (27-34); Mean Corpuscular Volume 94.6 FL (87-102); Mean Platelet Volume 10.7 FL (9.6-12.0); Monocytes # 0.5 10*3/uL (0.11-0.8); Monocytes % 9.1 % (1.7-12.7); Neutrophils # 2.8 10*3/uL (1.4-7.4); Neutrophils % 48.1 % (38.7-73.9); Platelet Count 237 T/CUMM (130-400); Red Blood Count 4.42 MC/CUMM (3.8-5.5); Red Cell Distribution Width 13.2 % (9.3-17.3); White Blood Count 5.9 T/CUMM (4-12)
[2017-05-29 06:13] LABS: Magnesium 2.5 MG/DL (1.8-2.4); Osmolality,Calculated 278.5 MOS/KG (273-304); Potassium 4.7 MMOL/L (3.5-5.1)
--- NOTE | 2017-05-29 07:36 | History and Physical Update ---
Sedation H&P Update - History and Physical H&P was reviewed, the patient examined and there: are no changes in the patients condition since last H&P was completed. - Dictation Physical: refer to H&P completed by admitting physician - Physical Exam Mental Status: alert and oriented Heart: other Lung: other (coarse breath sounds) Abdomen: within normal limits Vitals: within normal limits - Sedation Plan for Sedation: MAC (by the anesthesia team) Patient Consent: Procedure disscussed with patient and patinet has consented., Risks and benefits were discussed with patient,including infection,, bleeding, injury to surrounding structures, seizure, temporary nerve, Patient understands and accepts potential risks/benefits and agrees to ASA Class: IV Airway Assessment: Class III: Soft palate, base of uvula visible
[2017-05-29] MEDS: ARFORMOTEROL 15 MCG/2 ML NEB RESP TX SCH ×2 (07:41→19:59)
--- NOTE | 2017-05-29 07:45 | EKG Report ---
Stationary ECG Study [facility] Test Date: 05/29/2017 7:44:10 AM Pat Name: ENRIKE COLINDRES Department: Room: 290 Gender: M Verifier Operator: AILEEN : 1945 Requested by: Ha Colvin Order Number: [id number] Reading MD: RAPHAEL IBRAHIM Intervals [place] Rate: 82 P: 61 CA: 167 QRS: 40 QRSD: 114 T: 188 QT: 383 QTc: 421 Interpretive Statements SINUS RHYTHM MODERATE INTRAVENTRICULAR CONDUCTION DELAY ST DEVIATION AND MODERATE T-WAVE ABNORMALITY, CONSIDER LATERAL ISCHEMIA ST DEVIATION AND MODERATE T-WAVE ABNORMALITY, CONSIDER INFERIOR ISCHEMIA Electronically Signed On 05-29-17 13:13:09 CDT by RAPHAEL IBRAHIM [email or web address]
--- NOTE | 2017-05-29 08:50 | Pulmonology Progress Note ---
Pulmonary - PN: Subj Interval history: The patient is a 71-year-old with a significant ischemic cardiomyopathy and some COPD. He has had problems with heart failure. He also has some coughing and wheezing. He says his breathing is better today and is tolerating his bronchodilator therapy. He is going to the [employer] to have his pacemaker updated. He is sleepy this morning but otherwise is doing okay. Exam (Progress Note) - Constitutional Vitals: Period Temp Pulse Resp BP Sys/Gonsalez Pulse Ox Last 24 Hr 97.2 F-98.2 F 74-90 16-20 103-125/69-78 94-100 Exam: General appearance: normal weight, no acute distress (The patient is sleepy and resting comfortably in bed.) - Head Head exam: Present: normal inspection, normocephalic - Eye Eye exam: Present: EOMI. Absent: scleral icterus Pupils: Present: MING - ENT ENT exam: Present: normal exam - Neck Neck exam: Present: normal inspection. Absent: lymphadenopathy, thyromegaly - Respiratory Respiratory exam: Present: He has good breath sounds bilaterally without any definite wheezing at present. - Cardiovascular Cardiovascular exam: Present: regular rate and rhythm, systolic murmur (He does have a soft systolic murmur.). Absent: gallop, JVD - GI/Abdominal GI/Abdominal exam: Present: normal bowel sounds, soft. Absent: organomegaly, tenderness - Extremities Exam Extremities exam: Absent: calf tenderness, edema - Neurological Exam Neurological exam: Present: alert, oriented X3, CN II-XII intact. Absent: motor sensory deficit - Psychiatric Psychiatric exam: Present: normal affect, normal mood - Skin Skin exam: Present: warm, dry Results - Labs CBC & BMP: 05/29/17 05:05 05/29/17 05:05 Assessment and Plan (1) Tobacco dependence Status: Acute Assessment and plan: Patient has been a lifelong smoker and certainly needs to quit smoking. Current Visit: No (2) Acute on chronic congestive heart failure Status: Acute Assessment and plan: The patient came in with some volume overload and is diuresed well. He is breathing comfortably at present. Current Visit: Yes Qualifiers: Congestive heart failure type: combined Qualified Code(s): I50.43 - Acute on chronic combined systolic (congestive) and diastolic (congestive) heart failure (3) COPD exacerbation Status: Acute Assessment and plan: The patient has had some coughing and wheezing although he is a little better. He certainly has some COPD. Will continue with long-acting bronchodilator therapy. Overall he is stable at present. Current Visit: Yes (4) Ischemic cardiomyopathy Status: Chronic Assessment and plan: The patient has an ejection fraction of 20% and has had heart failure. He does have a defibrillator in place. He is going for a pacemaker update. Current Visit: Yes
[2017-05-29] MEDS ORDERED: PROPOFOL 200 MG/20 ML VIAL IV ONE (09:48)
[2017-05-29] MEDS ORDERED: LIDOCAINE 2% 5 ML VIAL ONE (09:48)
[2017-05-29] MEDS ORDERED: ceFAZolin 1,000 MG VIAL ONE (09:49)
[2017-05-29] MEDS ORDERED: HEPARIN/NACL 0.9% 2 UNITS/ML 500 ML IV ONE (09:49)
[2017-05-29] MEDS ORDERED: TISSUE ADHESIVE 1 EACH APPLICATOR TOP ONE (10:20)
[2017-05-29] MEDS ORDERED: LIDOCAINE 1% 20 ML VIAL ONE (11:24)
[2017-05-29] MEDS ORDERED: oxyCODONE/ACETAMINOPHEN 5-325 MG TABLET PO PRN (11:38)
--- NOTE | 2017-05-29 11:51 | Cardiac Defibrillator ---
- Preoperative diagnosis Date of Procedure:: 05/29/17 Preop Diagnosis: cardiac arrest due to ventricular fibrillation, not due to transient reversible cause Preop Diagnosis: ischemic dilated cardiomyopathy, document prior TN, NYHA class II and III heart failure, and measured LVEF less than or equal to 35% Pre-op Diagnosis: ICM, CHF NYHA IV, LBBB, VF Post-op diagnosis: same Procedure: PROCEDURE SUMMARY Upgrade to biventricular ICD implant from left axillary vein access: VVI ICD generator explant, ICD pocket revision, implant of a new RA and LV leads, implant of a new CRM DEVELOPER-D defibrillator. Defibrillator testing. PLAN Bed rest for 4 hours. Routine post ICD implant site care and activity restrictions. Do not remove pressure dressing until AM. Portable CXR, EKG stat. CXR PA/Lat, device interrogation in AM. Ancef 1g iv. q8h x2. PROCEDURE Informed consent was obtained and a timeout was performed prior to the procedure. The patient was continuously monitored by ECG, pulse oxymetry and NIBP. 1g iv. Ancef was administered prior to the procedure for antibiotic prophylaxis. Monitored anesthesia care was provided by the anesthesia team. The left pectoral area was meticulously prepared with ChloroPrep surgical scrub. Sterile draping was applied and Ioban was used to cover the operation site. The image intensifier was draped with a sterile bag and positioned over the patient's chest. After infiltration with 1% lidocaine, an incision was made over the existing defibrilaltor. The incision was carried down to the level of the device pocket. The existing single-chamber ICD (Medtronic [id number], serial number [id number] ) was disconnected from the leads and removed. The defibrillator wire was tested with the external gameplay programmer, normal parameters were found. The ICD pocket was revised, extended inferomedially to accept the new leads and a larger defibrillator battery. Hemostasis was achieved with electrocautery. A micropuncture needle was used to access the left axillary vein under fluoroscopic guidance. The microfilament was used to introduce the micropuncture sheath, which the was used to introduce and advance a long hydrophylic guidewire into the inferior vena cava. The micropuncture kit was used again to obtain a separate access to the left axillary vein under fluoroscopic guidance. A second long hydrophylic guidewire was then introduced and advanced into the inferior vena cava. A 9 Fr sheath was introduced over the first guidewire. The dilator was removed. The right atrial pacemaker lead was introduced through the sheath. The sheath was then peeled away. A straight stylet was used to move the lead into the right atrium. The stylet was then replaced with a curved J stylet and the lead was moved into a stable position in the right atrial appendage. Adequate sensing and pacing threshold was confirmed. The active fixation mechanism was then deployed. Stable signal and pacing threshold was noted, with decrease in pacing impedance. No extracardiac stimulation was noted with high output pacing. The lead was then anchored to the subcutaneous tissue with 2-0 nonabsorbable suture, using the anchoring sleeve near the point of entry to the vein. The Attain sheath was introduced over the second guidewire. The dilator was removed. The coronary sinus ostium was cannulated with the Attain sheath, and it was advanced into the proximal CS body over the guidewire. Non-occlusive CS venogram with 7 cc. contrast showed intraluminal position, a posterolateral vein and a lateral vein. The coronary sinus lead was advanced over a BMW guidewire into a lateral vein. Adequate sensing and pacing threshold was confirmed. No extracardiac stimulation was noted with high output pacing. The QLV was 120 ms in a mid lateral position. The Attain sheath was then withdrawn to the right atrium, then peeled away and removed, using the slitter tool. Lead position and parameters remained stable and it was then anchored to the subcutaneous tissue with 2-0 nonabsorbable suture, using the anchoring sleeve near the point of entry to the axillary vein. The retained guidewire was removed. The ICD generator was attached to the leads and sealed in the prescribed manner. The wound was flushed with Ancef . The generator was placed into the pocket and tied to the pectoral fascia using 2-0 nonabsorbable suture. Stable lead positions were confirmed with fluoroscopy. Ventricular fibrillation was induced with a T wave shock. The device promptly detected the arrhythmia and terminated it with a single 25J shock. The wound was closed using a double layer of 2-0 absorbable Vicryl sutures, followed by a subcuticular running suture with 4-0 Monocryl, then Exofin. A sterile, then a pressure dressing was applied. The device was then interrogated and programmed as detailed below. Device Type SN Location Medtronic Viva CRM DEVELOPER-D Biventricular ICD [id number] Left infraclavicular Lead Position Type SN P/R Threshold Impedance RA RA appendage Medtronic 5076-52 [id number] 1.0 mV 1.6 V @ 0.5 ms 670 Ohm RV (existing) RV apex Medtronic 6947-58 [id number] 8.9 mV 0.5 V @ 0.5 ms 388 Ohm LV Lateral Medtronic 4298-88 [id number] 1.6 mV 0.4 V @ 0.5 ms 465 Ohm Bradycardia settings DDDR BiV 50/130 Tachycardia settings VF @300 ms, VT @360 ms The implanted system is not MRI compatible. Anesthesia: MAC Surgeon / Physician: Ha Colvin Financial Reserve Clerk: other (Harry) Estimated blood loss: minimal Specimens: none sent Condition: stable Disposition: floor - Medications / Follow-up
[2017-05-29] MEDS ORDERED: fentaNYL 100 MCG/2 ML VIAL ONE (12:19)
[2017-05-29] MEDS ORDERED: MIDAZOLAM 2 MG/2 ML VIAL ONE (12:19)
--- NOTE | 2017-05-29 12:27 | XRay Report ---
Portable chest Date: 05/29/2017 Clinical history: Lead placement Comparison: 05/25/2017 Technique: Portable AP sitting chest Findings: Persistent cardiomegaly with prior median sternotomy. Insertion of additional atrial and ventricular leads in patient with left subclavian AICD. No pneumothorax. Progressive diffuse parenchymal findings with more prominent pulmonary vasculature. Stable mediastinum with degenerative changes. Impression: No evidence pneumothorax following insertion of additional atrial and ventricular leads in patient with left ventricular AICD. Prior median sternotomy with progressive mild CHF. PROCEDURE INTERPRETED AT [facility] DEPARTMENT OF RADIOLOGY Final Report Signed by: Dr. Monica Latham
--- NOTE | 2017-05-29 12:34 | Anesthesia Post-Op ---
Anesthesia Post OP - Post Ansesthetic Evaluation Patient seen in post op: Yes Resp: within normal limits CV: within normal limits Mental: within normal limits Temp: within normal limits [id number]: within normal limits Nausea and Vomiting: within normal limits Pain: within normal limits
[2017-05-29] MEDS: MELOXICAM 7.5 MG TABLET PO SCH (13:07)
[2017-05-29] MEDS: POTASSIUM CHLORIDE 20 MEQ TABLET PO SCH ×3 (13:07→20:49)
[2017-05-29] MEDS: hydrALAZINE 25 MG TABLET PO SCH ×3 (13:07→20:49)
[2017-05-29] MEDS: ASPIRIN EC 81 MG TABLET PO SCH (13:07)
[2017-05-29] MEDS: CLOPIDOGREL 75 MG TABLET PO SCH (13:08)
[2017-05-29] MEDS: FUROSEMIDE 20 MG/2 ML VIAL IV SCH ×2 (13:08→17:20)
[2017-05-29] MEDS: PANTOPRAZOLE 40 MG TABLET PO SCH (13:08)
[2017-05-29] MEDS: FERROUS SULFATE 325 MG TABLET PO SCH (13:08)
[2017-05-29] MEDS: COLCHICINE 0.6 MG TABLET PO SCH (13:08)
[2017-05-29] MEDS: ISOSORBIDE MONONITRATE 30 MG TABLET PO SCH (13:08)
--- NOTE | 2017-05-29 14:26 | EKG Report ---
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
[2017-05-29] MEDS: ZALEPLON 5 MG CAPSULE PO PRN (20:48)
[2017-05-29] MEDS: CLORAZEPATE 7.5 MG TABLET PO PRN (20:49)
[2017-05-29] MEDS: ROSUVASTATIN 20 MG TABLET PO SCH (20:49)
[2017-05-30 05:23] LABS: Basophils # 0.1 10*3/uL (0.0-0.2); Basophils % 0.6 % (0.0-0.8); Eosinophils # 0.2 10*3/uL (0.0-0.87); Eosinophils % 2.8 % (0.00-10.9); Hematocrit 39.8 VOL% (42.0-52.0); Hemoglobin 13.3 GM/DL (14.0-18.0); Immature Granulocytes % 0.3 %; Immature Granulocytes Absolute 0.02 #; Lymphocytes # 2.2 10*3/uL (1.4-4.0); Lymphocytes % 28.5 % (21.2-54.2); Mean Corpuscular HGB Conc 33.4 GM/DL (32-36); Mean Corpuscular Hemoglobin 32 PG (27-34); Mean Corpuscular Volume 95.7 FL (87-102); Monocytes # 0.7 10*3/uL (0.11-0.8); Monocytes % 8.8 % (1.7-12.7); Neutrophils # 4.6 10*3/uL (1.4-7.4); Platelet Count 252 T/CUMM (130-400); Red Blood Count 4.16 MC/CUMM (3.8-5.5); Red Cell Distribution Width 13.4 % (9.3-17.3); White Blood Count 7.8 T/CUMM (4-12)
[2017-05-30 05:54] LABS: Calcium 9.6 MG/DL (8.5-10.1); Magnesium 2.5 MG/DL (1.8-2.4); Osmolality,Calculated 280.4 MOS/KG (273-304); Potassium 5.2 MMOL/L (3.5-5.1)
[2017-05-30] MEDS: ARFORMOTEROL 15 MCG/2 ML NEB RESP TX SCH (07:09)
--- NOTE | 2017-05-30 08:09 | Electrophysiology Progress Not ---
Assessment and Plan (1) CHF exacerbation Status: Acute Assessment and plan: 71-year-old black male, ischemic cardiomyopathy, ejection fraction 20%, left bundle branch block, QRS 125 ms. He was referred for BLASTING GANG MINER-D upgrade and I was planning to see him next week. He developed progressive shortness of breath, weakness, and was hospitalized. He does not have significant peripheral edema, potassium 2.8, blood pressure was borderline low. Oxygen saturation 97-100. Mild acute kidney injury. Mild pulmonary congestion on x-ray Echo: Ejection fraction 20%, severe pulmonary hypertension, moderate MR, moderate to severe TR. 05/29: upgrade to BLASTING GANG MINER-D, defibrillator testing -He responded well to diuretics, vasodilators -His hypokalemia resolved with large dose supplementation. Decrease K suppl, consider switching Lasix to p.o. -History of LV clot, none on recent TTE -Recent severe CHF, improved. If remains stable, we may start adding an titrating beta-peewee, he may be a candidate for Aldactone amd Entresto soon -Follow-up with Dr. Colvin next Saturday for ICD check. -Post ICD implant activity limitations and implant site care was discussed. Wear the sling all time, keep the implant site dry and the dressing in place until seen, follow-up with EP next Saturday. -I will sign off, please call with further questions Current Visit: No Qualifiers: Congestive heart failure type: systolic (2) Acute exacerbation of chronic obstructive airways disease Status: Resolved Current Visit: No (3) Ischemic cardiomyopathy Status: Chronic Current Visit: No (4) Hypertension Status: Chronic Current Visit: No (5) Hyperlipidemia Status: Chronic Current Visit: No (6) LV (left ventricular) mural thrombus Status: Chronic Current Visit: No Electrophysiology Subjective Interval history: He is feeling better, ICD was upgraded to BLASTING GANG MINER-D yesterday. Successful defibrillator testing. Potassium increased,. Exam - Constitutional Vitals: Period Temp Pulse Resp BP Sys/Gonsalez Pulse Ox Last 24 Hr 97.8 F-98.5 F 72-96 16-20 92-141/55-80 95-100 General appearance: normal weight, no acute distress - Head Head exam: Present: normal inspection, normocephalic - Eye Eye exam: Absent: conjunctival injection, scleral icterus Pupils: Absent: dilated - ENT ENT exam: Present: normal external ear exam - Neck Neck exam: Present: normal inspection - Respiratory Respiratory exam: Present: decreased breath sounds. Absent: rhonchi, wheezes - Cardiovascular Cardiovascular exam: Present: regular rate and rhythm, systolic murmur. Absent : JVD - GI/Abdominal GI/Abdominal exam: Present: normal bowel sounds. Absent: distended - Extremities Exam Extremities exam: Present: normal inspection, normal capillary refill. Absent: edema - Back Exam Back exam: Present: normal inspection - Neurological Exam Neurological exam: Present: alert, oriented X3 - Psychiatric Psychiatric exam: Present: normal affect, normal mood - Skin Skin exam: Present: normal color, warm. Absent: cyanosis Results - Labs CBC & BMP: 05/30/17 04:25 05/30/17 04:25 Lab Results: I have reviewed the past 24 hour labs Quality Measures - VTE Contraindication to Pharmacological VTE Prophylaxis: High Risk of Bleeding
--- NOTE | 2017-05-30 08:15 | XRay Report ---
2 view chest. Indication: Lead placement. Comparison: Yesterday's exam. The heart is enlarged. Post median sternotomy. Cardiac hardware is in satisfactory position. The pulmonary vasculature is normal. Interstitial prominence shows interval improvement. No dense consolidation or pneumothorax. Tiny bilateral pleural effusions. Impression: Interval improvement. Persistent but improved interstitial edema. Tiny pleural effusions. PROCEDURE INTERPRETED AT [facility] DEPARTMENT OF RADIOLOGY Final Report Signed by: Dr. Patricia Oneil
--- NOTE | 2017-05-30 08:48 | Pulmonology Progress Note ---
Pulmonary - PN: Subj Interval history: The patient is a 71-year-old with a significant ischemic cardiomyopathy and some COPD. He has had problems with heart failure. He also has some coughing and wheezing. He says his breathing is better today and is tolerating his bronchodilator therapy. Yesterday he had his defibrillator upgraded. He did well with the procedure. He says he is breathing comfortably now. He is not having any wheezing now. Exam (Progress Note) - Constitutional Vitals: Period Temp Pulse Resp BP Sys/Gonsalez Pulse Ox Last 24 Hr 97.8 F-98.5 F 61-96 16-20 92-141/55-80 95-100 Exam: General appearance: normal weight, no acute distress (The patient is alert and walking around okay without problems.) - Head Head exam: Present: normal inspection, normocephalic - Eye Eye exam: Present: EOMI. Absent: scleral icterus Pupils: Present: MING - ENT ENT exam: Present: normal exam - Neck Neck exam: Present: normal inspection. Absent: lymphadenopathy, thyromegaly - Respiratory Respiratory exam: Present: He has good breath sounds bilaterally without any definite wheezing at present. - Cardiovascular Cardiovascular exam: Present: regular rate and rhythm, systolic murmur (He does have a soft systolic murmur.). Absent: gallop, JVD - GI/Abdominal GI/Abdominal exam: Present: normal bowel sounds, soft. Absent: organomegaly, tenderness - Extremities Exam Extremities exam: Absent: calf tenderness, edema - Neurological Exam Neurological exam: Present: alert, oriented X3, CN II-XII intact. Absent: motor sensory deficit - Psychiatric Psychiatric exam: Present: normal affect, normal mood - Skin Skin exam: Present: warm, dry Results - Labs CBC & BMP: 05/30/17 04:25 05/30/17 04:25 Assessment and Plan (1) Tobacco dependence Status: Acute Assessment and plan: Patient has been a lifelong smoker and certainly needs to quit smoking. Current Visit: No (2) Acute on chronic congestive heart failure Status: Acute Assessment and plan: The patient came in with some volume overload and is diuresed well. He is breathing comfortably at present. He has no signs of heart failure now. Current Visit: Yes Qualifiers: Congestive heart failure type: combined Qualified Code(s): I50.43 - Acute on chronic combined systolic (congestive) and diastolic (congestive) heart failure (3) COPD exacerbation Status: Acute Assessment and plan: The patient has had some coughing and wheezing although he is a little better. He certainly has some COPD. He has been using albuterol as needed. He says he is doing well with his breathing now. We can check him back in the office and check PFTs later. Current Visit: Yes (4) Ischemic cardiomyopathy Status: Chronic Assessment and plan: The patient has an ejection fraction of 20% and has had heart failure. He had his defibrillator upgraded yesterday. He is doing well now and can probably go home at any time. Current Visit: Yes
[2017-05-30] MEDS: COLCHICINE 0.6 MG TABLET PO SCH (08:52)
[2017-05-30] MEDS: MELOXICAM 7.5 MG TABLET PO SCH (08:52)
[2017-05-30] MEDS: FERROUS SULFATE 325 MG TABLET PO SCH (08:52)
[2017-05-30] MEDS: PANTOPRAZOLE 40 MG TABLET PO SCH (08:52)
[2017-05-30] MEDS: CLOPIDOGREL 75 MG TABLET PO SCH (08:53)
[2017-05-30] MEDS: ISOSORBIDE MONONITRATE 30 MG TABLET PO SCH (08:53)
[2017-05-30] MEDS: ASPIRIN EC 81 MG TABLET PO SCH (08:53)
[2017-05-30] MEDS: hydrALAZINE 25 MG TABLET PO SCH (08:53)
[2017-05-30] MEDS ORDERED: POTASSIUM CHLORIDE 20 MEQ TABLET PO SCH (09:00)
[2017-05-30] MEDS: FUROSEMIDE 20 MG/2 ML VIAL IV SCH (09:46)
--- NOTE | 2017-05-30 11:24 | Discharge Summary ---
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 Weiss is a 71 year old male with known history of coronary artery disease, routinely followed by Dr. Higginbotham. Patient has coronary risk factors significant for hypertension, dyslipidemia, known CAD, current everyday smoker and advanced age. Patient has past medical history of ischemic cardiomyopathy (most recent ejection fraction 15-20% per echo April 2017), COPD, left ventricular thrombus, LVH, MR and non-ST elevation ID. His most recent heart catheterization was performed July 2016, received PCI to ramus intermedius. Remains on aspirin and Plavix, reports compliance. Status post coronary artery bypass grafting. His SVG to obtuse marginal artery noted to be occluded. Status post stent to SVG to first diagonal in December 2015. He does have ICD. Most recent echocardiogram was performed April 2017. At that time, he was noted to have severely depressed LV systolic function, ejection fraction 15-20%. There is global hypokinesis. Grade 3 diastolic dysfunction. Mild concentric LVH. Moderate MR, mild to moderate pulmonic regurgitation and moderate to severe TR. Old LV thrombus noted. Patient was recently seen in the cardiology clinic and was scheduled to see Dr. Colvin for BI V ICD. Patient presented to [facility] with complaints of shortness of breath and weakness. Upon arrival to the emergency department, he was noted to be severely hypokalemic. Patient was admitted under cardiology's service and housed on the telemetry unit. Echocardiogram was performed which revealed decreased LV systolic function of 20%. No LV thrombus noted. Grade 3 diastolic dysfunction. Moderate MR. Mild AI. Moderate to severe TR with severe pulmonary hypertension noted. Patient responded well to diuretics and vasodilators. His hypokalemia resolved. Potassium was borderline high this morning at 5.2. Potassium dosing was decreased. Patient will follow with Dr. Colvin in 1 week with [facility]. Patient's heart failure was compensated, he underwent ICD upgrade to BI V ICD. Patient tolerated this procedure well. His ICD has been interrogated and appears to be functioning appropriately. Chest x-ray reveals appropriate lead placement. Post ICD instructions have been reviewed with the patient. He has been instructed to remain wearing left arm sling without fail until his follow-up appointment with Dr. Colvin in 1 week. He verbalizes understanding of this. He has also been instructed to keep left upper chest dressing intact until his follow-up appointment with Dr. Colvin. Lipid panel was obtained this hospitalization. LDL 92. Statin was switched to high intensity statin. He will need repeat lipid panel in 4-6 weeks. Patient was on Zaroxolyn prior to being hospitalized. This was held due to labs reflecting volume depletion. After discussing with Dr. Ramos, this will continue to be held at discharge. Can consider reinitiating this as an outpatient. Patient will not be discharged home with WILLY inhibitor as his blood pressure will not tolerate. This can be rechallenged as an outpatient. Can consider Entresto. This patient is anxious for discharge home today. Having felt that he has met maximal medical therapy, he will be discharged home in stable condition. I have spent a great amount of time discussing with the patient the importance of smoking cessation. He reports that he will attempt to quit smoking upon discharge. He has already purchased Nicorette in order to assist him with this. Patient has been given a follow-up appoint with Dr. Verde in 1 week with ICD interrogation, EKG and BMP. He has also been given a follow-up appoint with Dr. Emelyn Higginbotham in 1 month. Patient verbalizes understanding of discharge instructions as well as discharge medications. - Time spent with patient Time with patient DS: Greater than 30 minutes Diagnosis - Discharge Diagnosis (1) Acute on chronic congestive heart failure Status: Resolved (2) COPD exacerbation Status: Resolved (3) Ischemic cardiomyopathy Status: Chronic (4) CAD (coronary artery disease) Status: Chronic (5) Dyslipidemia Status: Chronic (6) Tobacco abuse Status: Chronic (7) Tricuspid regurgitation Status: Chronic (8) LV (left ventricular) mural thrombus Status: Resolved (9) Hypokalemia Status: Resolved Specialty Discharge - Follow Up or Referrals Follow up with: Ha Colvin MD [Physician] - 1 Week (BMP, EKG and ICD interrogation) Emelyn Higginbotham MD [Physician] - 1 Month Jonatan Mclean MD [Physician] - 2 Weeks (With PFTs.) Discharge Plan - Discharge Data Disposition: Disch To Home/Self Care Condition at Discharge: Stable Discharge Diet: heart healthy Activity: no lifting, other (Wear left arm sling at all times. ) Hygiene: other (Post ICD expectations) Weight Bearing at Discharge: weight bear as tolerated Driving: not until seen by doctor Contact your physician if you experience:: fever over 101, Difficulty voiding, Redness or swelling, Nausea/Vomiting, Shortness of breath, Bleeding, pain uncontrolled by pain medications - Discharge Medications New Isosorbide Mononitrate [Imdur] 30 mg PO DAILY #30 tablet Potassium Chloride Cap/Tab [K Dur] 20 meq PO DAILY #30 tablet Rosuvastatin [Crestor] 40 mg PO BEDTIME #30 tablet hydrALAZINE TAB [Apresoline Tab] 25 mg PO TID #90 tablet Carvedilol [Coreg] 3.125 mg PO BID #60 tablet Furosemide Tab [Lasix Tab] 40 mg PO BID DIURETIC #60 tablet Continue Albuterol Inhaler [Proventil Inhaler] 2 puff INH Q6HR Omeprazole [Prilosec] 20 mg PO QAM Meloxicam 7.5 mg PO QAM Ferrous Sulfate 325 mg PO QAM HYDROcodone/ACETAMIN 10-325 [[place] 10-325] 1 tablet PO Q6H PRN PRN Reason: Pain Colchicine [Colcrys] 0.6 mg PO DAILY Aspirin EC Tab 81 mg PO QAM Clopidogrel [Plavix] 75 mg PO QAM Discontinued Pravastatin Sodium 80 mg PO BEDTIME Furosemide Tab [Lasix Tab] 40 mg PO BID Potassium Chloride 20 meq PO BID metOLazone [Metolazone] 2.5 mg PO QOTHER DAY Carvedilol [Carvedilol] 6.25 mg PO BID - Follow Up or Referral Follow Up: Ha Colvin MD [Physician] - 1 Week (BMP, EKG and ICD interrogation) Jonatan Mclean MD [Physician] - 2 Weeks (With PFTs.) Emelyn Higginbotham MD [Physician] - 1 Month - Forms/Instructions Exam - Constitutional Vitals: Period Temp Pulse Resp BP Sys/Gonsalez Pulse Ox Last 24 Hr 97.8 F-98.5 F 61-96 16-20 92-141/55-80 95-100 Exam: General: Appears well with no apparent distress. Pleasant and cooperative. Appears comfortable. HEENT: PERRL, normocephalic, atraumatic. Mucous membranes moist. No jaundice noted. Conjunctiva moist and clear, sclerae anicteric Neck: No JVD/HJR, no thyromegaly or lymphadenopathy noted. No carotid bruit appreciated Cardiac: Regular rate and rhythm. Systolic murmur. Chest wall: Pacemaker insertion site looks good. Lungs: Decreased breath sounds, minimal rhonchi. Not requiring oxygen. Abdomen: Soft, bowel sounds normoactive. Nontender and nondistended. No abdominal bruit or thrill noted. No masses noted. Extremities: No clubbing, cyanosis noted. No edema noted. Upper extremity pulses 2+. Lower extremity pulses 2+. Capillary refill less than 3 seconds. Skin: No unusual lesions or rashes. No skin breakdown appreciated. Neuro: Awake, alert and oriented 3. Moves all extremities well without hemiparesis or paralysis. No essential tremor is appreciated. Discharge Results Procedures and tests throughout hospitalization: Pending Orders 05/31/17 04:00 BMP w/ Mg [Basic Metabolic Panel w/Mg] IN AM CBC [Comp Blood Count Auto Diff] IN AM Labs on day of discharge: Labs from last 24 hours 05/30/17 05/30/17 04:25 04:25 WBC 7.8 D RBC 4.16 Hgb 13.3 L Hct 39.8 L MCV 95.7 MCH 32 MCHC 33.4 RDW 13.4 Plt Count 252 MPV 11.0 Neut % (Auto) 59.0 Lymph % (Auto) 28.5 [place] % (Auto) 8.8 Eos % (Auto) 2.8 Baso % (Auto) 0.6 Neut # (Auto) 4.6 Lymph # (Auto) 2.2 [place] # (Auto) 0.7 Eos # (Auto) 0.2 Baso # (Auto) 0.1 Immature Gran % 0.3 Nucleated RBC % 0.0 Immature Gran # 0.02 Nucleated RBCs # 0.00 Immature Plt Fraction 0.0 Sodium 140 Potassium 5.2 H Chloride 109 H Carbon Dioxide 24 Anion Gap 12.2 BUN 19 H Creatinine 1.20 GFR Calculation 83 BUN/Creatinine Ratio 15.00 Glucose 99 Calculated Osmolality 280.4 Calcium 9.6 Magnesium 2.5 H - Imaging and Cardiology Cardiology Procedure: report reviewed by me Procedure: Chest x-ray: report reviewed by me DS: Provider Date of admission: 05/24/17 14:59 Primary care physician: Nonstaff Physician Attending physician on admission: Ha Colvin MD Consults: 05/27/17 10:28 Consult to Anesthesiology [CONS] Routine Consulting Provider: Reason for Anesthesiology: Other 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 wed. morning 05/28/17 11:14 Consult to Physician [CONS] Routine Comment: On Duoneb but still wheezing Consulting Provider: Jonatan Mclean When should Consulting Provider be notified: Now Consult to Specialist Group: Pulmonology Person Notified: Ivan Date Notified: 05/28/17 Time Notified: 11:50 05/30/17 08:50 Consult to Case Mgmt/Social Srvs [CONS] Routine Reason for Case Mgmt/Social Srvs: Other Consult Comment: Check if he is a candidate for home oxygen. Discharging clinician: Patricia Clayton NP Expected date of discharge: 05/30/17
[2017-05-30 12:11] VITALS: BP 110/68
[2017-05-30] MEDS ORDERED: FUROSEMIDE 20 MG TABLET PO SCH (16:00)
[2017-05-30] MEDS ORDERED: FUROSEMIDE 40 MG TABLET PO SCH (16:00)
[2017-05-30] MEDS ORDERED: CARVEDILOL 3.125 MG TABLET PO SCH (21:00)
== END 2017-05-30 13:08 | disposition home or self-care (01) | DRG 227 ==
LOC: N.ED 10:55 → N.EDINP 14:59 → N.TELEN 16:34
PROVIDERS: ADMIT Internal Medicine Clinical Cardiac Electrophysiology; ATTEND Internal Medicine Clinical Cardiac Electrophysiology

== ENCOUNTER 2017-11-05 11:05 | Inpatient (IN) ==
[2017-11-05] MEDS ORDERED: METOPROLOL TARTRATE 5 MG/5 ML VIAL IV STA (11:53)
[2017-11-05] MEDS ORDERED: DILTIAZEM 50 MG/10 ML VIAL IV STA (11:56)
[2017-11-05] MEDS ORDERED: DILTIAZEM 50 MG/10 ML VIAL IV ONE (12:34)
[2017-11-05] MEDS ORDERED: DILTIAZEM 100 MG VIAL.ADD IV ONE ×2 (12:34→20:24)
[2017-11-05 12:37] LABS: Basophils # 0.1 10*3/uL (0.0-0.2); Basophils % 0.6 % (0.0-0.8); Eosinophils # 0.1 10*3/uL (0.0-0.87); Eosinophils % 1.4 % (0.00-10.9); Hematocrit 46.5 VOL% (42.0-52.0); Hemoglobin 15.4 GM/DL (14.0-18.0); Immature Granulocytes % 0.5 %; Immature Granulocytes Absolute 0.04 #; Mean Corpuscular HGB Conc 33.1 GM/DL (32-36); Mean Corpuscular Hemoglobin 31 PG (27-34); Mean Corpuscular Volume 94.9 FL (87-102); Mean Platelet Volume 10.8 FL (9.6-12.0); Monocytes # 1.1 10*3/uL (0.11-0.8); Monocytes % 13.4 % (1.7-12.7); Neutrophils # 5.6 10*3/uL (1.4-7.4); Neutrophils % 71.1 % (38.7-73.9); Platelet Count 273 T/CUMM (130-400); Red Cell Distribution Width 14.2 % (9.3-17.3); White Blood Count 7.9 T/CUMM (4-12)
[2017-11-05] MEDS: DILTIAZEM INJ 100 MG in SODIUM CHLORIDE 0.9% 100 ML IV SCH (12:47)
[2017-11-05 13:13] LABS: Albumin 3.8 G/DL (3.4-5.0); Bilirubin,Total 2.4 MG/DL (0.2-1.0); Calcium 9.1 MG/DL (8.5-10.1); Osmolality,Calculated 275.1 MOS/KG (273-304); Potassium 3.5 MMOL/L (3.5-5.1); Total Protein 7.5 G/DL (6.4-8.3)
[2017-11-05 13:14] LABS: Troponin I Only 0.054 NG/ML (0.00-0.045)
[2017-11-05] MEDS ORDERED: HYDROcod/ACETAMIN 7.5-325 MG/15 ML UDCUP PO STA (13:32)
[2017-11-05] MEDS ORDERED: MAGNESIUM SULF RIDER 4 GM in PREMIX 1 EACH IV PRN (19:37)
[2017-11-05] MEDS ORDERED: MAGNESIUM SULF RIDER 2 GM in PREMIX 1 EACH IV PRN (19:37)
[2017-11-05] MEDS ORDERED: POTASSIUM CHLORIDE 20 MEQ TABLET PO PRN (19:37)
[2017-11-05] MEDS ORDERED: ONDANSETRON 4 MG/2 ML VIAL IV PRN (19:37)
[2017-11-05] MEDS ORDERED: DOCUSATE SODIUM 100 MG CAPSULE PO PRN (19:37)
[2017-11-05] MEDS ORDERED: ENOXAPARIN 40 MG/0.4 ML SYRINGE SUBCUT SCH (20:00)
[2017-11-05] MEDS ORDERED: SODIUM CHLORIDE 0.9% 100 ML IV ONE (20:25)
[2017-11-05] MEDS ORDERED: DILTIAZEM INJ 100 MG in SODIUM CHLORIDE 0.9% 100 ML IV SCH (22:00)
[2017-11-05] MEDS: CARVEDILOL 3.125 MG TABLET PO SCH (23:19)
[2017-11-05] MEDS: hydrALAZINE 25 MG TABLET PO SCH (23:19)
[2017-11-05] MEDS: ROSUVASTATIN 20 MG TABLET PO SCH (23:19)
[2017-11-05] MEDS: ENOXAPARIN 40 MG/0.4 ML SYRINGE SUBCUT SCH (23:19)
[2017-11-05] MEDS: FUROSEMIDE 40 MG/4 ML VIAL IV SCH (23:19)
[2017-11-06 06:13] LABS: Basophils % 0.6 % (0.0-0.8); Eosinophils # 0.1 10*3/uL (0.0-0.87); Eosinophils % 2.1 % (0.00-10.9); Hematocrit 41.4 VOL% (42.0-52.0); Hemoglobin 13.5 GM/DL (14.0-18.0); Immature Granulocytes % 0.5 %; Immature Granulocytes Absolute 0.03 #; Lymphocytes # 1.2 10*3/uL (1.4-4.0); Lymphocytes % 17.6 % (21.2-54.2); Mean Corpuscular HGB Conc 32.6 GM/DL (32-36); Mean Corpuscular Hemoglobin 31 PG (27-34); Mean Corpuscular Volume 96.1 FL (87-102); Monocytes # 0.3 10*3/uL (0.11-0.8); Monocytes % 4.5 % (1.7-12.7); Neutrophils # 4.9 10*3/uL (1.4-7.4); Neutrophils % 74.7 % (38.7-73.9); Platelet Count 256 T/CUMM (130-400); Red Blood Count 4.31 MC/CUMM (3.8-5.5); Red Cell Distribution Width 13.8 % (9.3-17.3); White Blood Count 6.6 T/CUMM (4-12)
[2017-11-06 06:46] LABS: Calcium 8.3 MG/DL (8.5-10.1); Osmolality,Calculated 277.8 MOS/KG (273-304); Potassium 2.8 MMOL/L (3.5-5.1); Thyroid Stimulating Hormone 1.81 uIU/ml (0.358-3.74)
[2017-11-06] MEDS ORDERED: POTASSIUM CHLORIDE 20 MEQ TABLET PO SCH (09:00)
[2017-11-06] MEDS ORDERED: ASPIRIN EC 81 MG TABLET PO SCH (09:00)
[2017-11-06] MEDS: PANTOPRAZOLE 40 MG TABLET PO SCH (09:32)
[2017-11-06] MEDS: CARVEDILOL 3.125 MG TABLET PO SCH (09:32)
[2017-11-06] MEDS: hydrALAZINE 25 MG TABLET PO SCH ×3 (09:32→21:20)
[2017-11-06] MEDS: CLOPIDOGREL 75 MG TABLET PO SCH (09:33)
[2017-11-06] MEDS: ISOSORBIDE MONONITRATE 30 MG TABLET PO SCH (09:33)
[2017-11-06] MEDS: FUROSEMIDE 40 MG/4 ML VIAL IV SCH ×2 (09:34→21:22)
[2017-11-06] MEDS: ACETAMINOPHEN 325 MG TABLET PO PRN ×2 (09:40→21:20)
[2017-11-06] MEDS: ENOXAPARIN 40 MG/0.4 ML SYRINGE SUBCUT SCH (11:46)
[2017-11-06] MEDS: AMIODARONE 200 MG TABLET PO SCH ×2 (14:35→21:21)
[2017-11-06] MEDS: APIXABAN 5 MG TABLET PO SCH ×2 (14:35→21:20)
[2017-11-06] MEDS: DILTIAZEM INJ 100 MG in SODIUM CHLORIDE 0.9% 100 ML IV SCH (16:22)
[2017-11-06] MEDS: ROSUVASTATIN 20 MG TABLET PO SCH (21:20)
[2017-11-06] MEDS: CARVEDILOL 6.25 MG TABLET PO SCH (21:20)
[2017-11-06] MEDS: ZALEPLON 5 MG CAPSULE PO PRN (21:21)
[2017-11-07] MEDS: AMIODARONE 200 MG TABLET PO SCH ×2 (09:30→21:14)
[2017-11-07] MEDS: ISOSORBIDE MONONITRATE 30 MG TABLET PO SCH (09:30)
[2017-11-07] MEDS: APIXABAN 5 MG TABLET PO SCH ×2 (09:31→21:14)
[2017-11-07] MEDS: PANTOPRAZOLE 40 MG TABLET PO SCH (09:31)
[2017-11-07] MEDS: CLOPIDOGREL 75 MG TABLET PO SCH (09:31)
[2017-11-07] MEDS: hydrALAZINE 25 MG TABLET PO SCH ×3 (09:31→21:15)
[2017-11-07] MEDS: CARVEDILOL 6.25 MG TABLET PO SCH ×2 (09:31→21:14)
[2017-11-07] MEDS: FUROSEMIDE 40 MG/4 ML VIAL IV SCH (09:32)
[2017-11-07] MEDS: POTASSIUM CHLORIDE 20 MEQ TABLET PO SCH ×3 (09:41→21:14)
[2017-11-07] MEDS: ALBUTEROL 2.5 MG/3 ML NEB RESP TX PRN ×2 (10:20→16:49)
[2017-11-07] MEDS: FUROSEMIDE 40 MG TABLET PO SCH (15:34)
[2017-11-07] MEDS: ROSUVASTATIN 20 MG TABLET PO SCH (21:14)
[2017-11-07] MEDS: ACETAMINOPHEN 325 MG TABLET PO PRN (21:14)
[2017-11-07] MEDS: ZALEPLON 5 MG CAPSULE PO PRN (21:14)
[2017-11-08] MEDS: ALBUTEROL 2.5 MG/3 ML NEB RESP TX PRN (00:38)
[2017-11-08] MEDS: POTASSIUM CHLORIDE 20 MEQ TABLET PO SCH (08:08)
[2017-11-08] MEDS: AMIODARONE 200 MG TABLET PO SCH (08:09)
[2017-11-08] MEDS: CLOPIDOGREL 75 MG TABLET PO SCH (08:09)
[2017-11-08] MEDS: CARVEDILOL 6.25 MG TABLET PO SCH (08:11)
[2017-11-08] MEDS: APIXABAN 5 MG TABLET PO SCH (08:13)
[2017-11-08] MEDS: FUROSEMIDE 40 MG TABLET PO SCH ×2 (08:14→17:13)
[2017-11-08] MEDS: PANTOPRAZOLE 40 MG TABLET PO SCH (08:14)
[2017-11-08] MEDS: hydrALAZINE 25 MG TABLET PO SCH ×2 (08:14→17:13)
[2017-11-08] MEDS: ISOSORBIDE MONONITRATE 30 MG TABLET PO SCH (08:14)
[2017-11-08 09:20] LABS: Basophils % 0.9 % (0.0-0.8); Eosinophils # 0.1 10*3/uL (0.0-0.87); Eosinophils % 2.6 % (0.00-10.9); Hematocrit 42.2 VOL% (42.0-52.0); Immature Granulocytes % 0.3 %; Immature Granulocytes Absolute 0.01 #; Lymphocytes # 1.2 10*3/uL (1.4-4.0); Mean Corpuscular HGB Conc 33.2 GM/DL (32-36); Mean Corpuscular Hemoglobin 31 PG (27-34); Mean Platelet Volume 10.7 FL (9.6-12.0); Monocytes # 0.3 10*3/uL (0.11-0.8); Monocytes % 8.8 % (1.7-12.7); Neutrophils # 1.8 10*3/uL (1.4-7.4); Neutrophils % 51.4 % (38.7-73.9); Platelet Count 235 T/CUMM (130-400); Red Blood Count 4.49 MC/CUMM (3.8-5.5); Red Cell Distribution Width 13.9 % (9.3-17.3); White Blood Count 3.4 T/CUMM (4-12)
[2017-11-08 09:45] LABS: Giant Platelets Few; Hypochromasia 1+; Lymphocytes 33 % (20-55); Ovalocytes Slight; Platelet Estimate Adequate; Segmented Neutrophils 57 % (50-85); Total Cells Counted 100
[2017-11-08 10:00] LABS: Calcium 8.9 MG/DL (8.5-10.1); Osmolality,Calculated 282.1 MOS/KG (273-304); Potassium 3.3 MMOL/L (3.5-5.1)
[2017-11-08 16:55] VITALS: BP 101/61
[2017-11-08] MEDS ORDERED: POTASSIUM CHLORIDE 20 MEQ TABLET PO SCH (21:00)
== END 2017-11-08 17:16 | disposition home or self-care (01) | DRG 310 ==
LOC: N.EDINP 11:05 → N.ED 11:05 → N.TELEN 22:12
PROVIDERS: ADMIT Internal Medicine Clinical Cardiac Electrophysiology; ATTEND Internal Medicine Clinical Cardiac Electrophysiology

== ENCOUNTER 2017-11-12 13:44 | Inpatient (IN) ==
[2017-11-12] MEDS ORDERED: ACETAMINOPHEN 325 MG TABLET PO PRN (14:17)
[2017-11-12] MEDS ORDERED: ONDANSETRON 4 MG/2 ML VIAL IV PRN (14:17)
[2017-11-12] MEDS ORDERED: ALBUTEROL 2.5 MG/3 ML NEB RESP TX PRN (14:24)
[2017-11-12] MEDS ORDERED: ALBUTEROL/IPRATROPIUM 3 ML NEB RESP TX PRN (14:27)
[2017-11-12 15:29] LABS: Troponin I Only 0.023 NG/ML (0.00-0.045)
[2017-11-12] MEDS: ISOSORBIDE MONONITRATE 30 MG TABLET PO SCH (17:37)
[2017-11-12] MEDS: hydrALAZINE 25 MG TABLET PO SCH ×2 (17:38→20:19)
[2017-11-12] MEDS: FUROSEMIDE 40 MG/4 ML VIAL IV SCH (17:59)
[2017-11-12] MEDS: APIXABAN 5 MG TABLET PO SCH (20:20)
[2017-11-12] MEDS: CYCLOBENZAPRINE 10 MG TABLET PO SCH (20:20)
[2017-11-12] MEDS: POTASSIUM CHLORIDE 20 MEQ TABLET PO SCH (20:20)
[2017-11-12] MEDS: ROSUVASTATIN 20 MG TABLET PO SCH (20:20)
[2017-11-12] MEDS: DOCUSATE SODIUM 100 MG CAPSULE PO SCH (20:21)
[2017-11-12] MEDS: AMIODARONE 200 MG TABLET PO SCH (20:21)
[2017-11-12] MEDS ORDERED: CARVEDILOL 6.25 MG TABLET PO SCH (21:00)
[2017-11-13 05:55] LABS: Basophils % 0.5 % (0.0-0.8); Eosinophils # 0.1 10*3/uL (0.0-0.87); Eosinophils % 0.8 % (0.00-10.9); Hematocrit 39.5 VOL% (42.0-52.0); Hemoglobin 12.8 GM/DL (14.0-18.0); Immature Granulocytes % 0.5 %; Immature Granulocytes Absolute 0.04 #; Lymphocytes # 1.1 10*3/uL (1.4-4.0); Mean Corpuscular HGB Conc 32.4 GM/DL (32-36); Mean Corpuscular Hemoglobin 31 PG (27-34); Mean Corpuscular Volume 95.4 FL (87-102); Mean Platelet Volume 11.2 FL (9.6-12.0); Monocytes # 0.5 10*3/uL (0.11-0.8); Monocytes % 5.7 % (1.7-12.7); Neutrophils # 6.7 10*3/uL (1.4-7.4); Neutrophils % 79.5 % (38.7-73.9); Platelet Count 253 T/CUMM (130-400); Red Blood Count 4.14 MC/CUMM (3.8-5.5); Red Cell Distribution Width 13.9 % (9.3-17.3); White Blood Count 8.4 T/CUMM (4-12)
[2017-11-13 06:22] LABS: Albumin 2.9 G/DL (3.4-5.0); Bilirubin,Direct 0.41 MG/DL (0.0-0.20); Bilirubin,Indirect 1.1 MG/DL (0.0-1.0); Bilirubin,Total 1.5 MG/DL (0.2-1.0); Total Protein 6.4 G/DL (6.4-8.3)
[2017-11-13 06:23] LABS: Albumin 3.1 G/DL (3.4-5.0); Bilirubin,Total 1.2 MG/DL (0.2-1.0); Calcium 8.8 MG/DL (8.5-10.1); Osmolality,Calculated 277.8 MOS/KG (273-304); Potassium 3.7 MMOL/L (3.5-5.1); Total Protein 6.2 G/DL (6.4-8.3)
[2017-11-13 06:31] LABS: Calcium 8.8 MG/DL (8.5-10.1); Potassium 3.7 MMOL/L (3.5-5.1)
[2017-11-13] MEDS ORDERED: CYCLOBENZAPRINE 10 MG TABLET PO ONE (09:51)
[2017-11-13] MEDS: CLOPIDOGREL 75 MG TABLET PO SCH (09:52)
[2017-11-13] MEDS: AMIODARONE 200 MG TABLET PO SCH ×2 (09:52→20:15)
[2017-11-13] MEDS: PANTOPRAZOLE 40 MG TABLET PO SCH (09:53)
[2017-11-13] MEDS: ISOSORBIDE MONONITRATE 30 MG TABLET PO SCH (09:53)
[2017-11-13] MEDS: DOCUSATE SODIUM 100 MG CAPSULE PO SCH ×2 (09:53→20:14)
[2017-11-13] MEDS: hydrALAZINE 25 MG TABLET PO SCH ×3 (09:54→20:19)
[2017-11-13] MEDS: POTASSIUM CHLORIDE 20 MEQ TABLET PO SCH ×2 (09:54→20:14)
[2017-11-13] MEDS: FUROSEMIDE 40 MG/4 ML VIAL IV SCH (09:55)
[2017-11-13] MEDS: APIXABAN 5 MG TABLET PO SCH ×2 (09:55→20:15)
[2017-11-13] MEDS ORDERED: MELOXICAM 7.5 MG TABLET PO SCH (10:00)
[2017-11-13] MEDS: methylPREDNISolone SOD SUC 40 MG/1 ML VIAL IV SCH ×2 (10:04→20:09)
[2017-11-13] MEDS: ALBUTEROL/IPRATROPIUM 3 ML NEB RESP TX SCH ×3 (10:24→20:11)
[2017-11-13] MEDS ORDERED: ALBUTEROL 0.63 MG/3 ML NEB RESP TX SCH (11:00)
[2017-11-13] MEDS: OXYMETAZOLINE 0.05% NASAL SPRAY 15 ML BOTTLE BOTH NARES SCH ×2 (13:40→20:15)
[2017-11-13] MEDS: FLUTICASONE 50 MCG NASAL SPRAY 16 GM BOTTLE BOTH NARES SCH ×2 (13:40→20:15)
[2017-11-13 15:19] LABS: Apearance,Urine CLEAR (Clear); Bilirubin,Urine Negative (Negative); Blood, Urine Negative (Negative); Glucose,Urine (UA) Negative (Negative); Ketones,Urine Negative (Negative); Nitrite,Urine Negative (Negative); Protein,Urine Negative; RBC,Urine <1 /HPF (0-4); Urine Color Yellow (Yellow); Urine Urobilinogen < 2.0 EU/DL (0.2-1.0); WBC,Urine <1 /HPF (0-6)
[2017-11-13] MEDS ORDERED: FUROSEMIDE 40 MG TABLET PO ONE (16:00)
[2017-11-13] MEDS: ROSUVASTATIN 20 MG TABLET PO SCH (20:16)
[2017-11-13] MEDS: CYCLOBENZAPRINE 10 MG TABLET PO SCH (20:16)
[2017-11-14] MEDS: ALBUTEROL/IPRATROPIUM 3 ML NEB RESP TX SCH ×7 (00:46→23:17)
[2017-11-14 05:17] LABS: Basophils % 0.1 % (0.0-0.8); Hematocrit 42.1 VOL% (42.0-52.0); Hemoglobin 13.9 GM/DL (14.0-18.0); Immature Granulocytes % 0.8 %; Immature Granulocytes Absolute 0.12 #; Lymphocytes # 0.5 10*3/uL (1.4-4.0); Lymphocytes % 3.1 % (21.2-54.2); Mean Corpuscular Hemoglobin 31 PG (27-34); Mean Corpuscular Volume 92.7 FL (87-102); Mean Platelet Volume 11.6 FL (9.6-12.0); Monocytes # 0.3 10*3/uL (0.11-0.8); Neutrophils # 13.8 10*3/uL (1.4-7.4); Platelet Count 253 T/CUMM (130-400); Red Blood Count 4.54 MC/CUMM (3.8-5.5); Red Cell Distribution Width 13.8 % (9.3-17.3); White Blood Count 14.7 T/CUMM (4-12)
[2017-11-14 05:44] LABS: Calcium 9.3 MG/DL (8.5-10.1); Osmolality,Calculated 282.5 MOS/KG (273-304); Potassium 4.8 MMOL/L (3.5-5.1)
[2017-11-14 05:58] LABS: Giant Platelets Few; Hypochromasia Slight; Lymphocytes 1 % (20-55); Ovalocytes Slight; Platelet Estimate Adequate; Segmented Neutrophils 97 % (50-85); Total Cells Counted 100
[2017-11-14] MEDS: DOCUSATE SODIUM 100 MG CAPSULE PO SCH ×2 (09:22→20:33)
[2017-11-14] MEDS: CLOPIDOGREL 75 MG TABLET PO SCH (09:23)
[2017-11-14] MEDS: FUROSEMIDE 40 MG TABLET PO SCH (09:23)
[2017-11-14] MEDS: AMIODARONE 200 MG TABLET PO SCH (09:24)
[2017-11-14] MEDS: ISOSORBIDE MONONITRATE 30 MG TABLET PO SCH (09:24)
[2017-11-14] MEDS: APIXABAN 5 MG TABLET PO SCH ×2 (09:24→20:32)
[2017-11-14] MEDS: POTASSIUM CHLORIDE 20 MEQ TABLET PO SCH ×2 (09:24→20:32)
[2017-11-14] MEDS: OXYMETAZOLINE 0.05% NASAL SPRAY 15 ML BOTTLE BOTH NARES SCH ×2 (09:24→20:53)
[2017-11-14] MEDS: PANTOPRAZOLE 40 MG TABLET PO SCH (09:24)
[2017-11-14] MEDS: hydrALAZINE 25 MG TABLET PO SCH ×3 (09:24→20:32)
[2017-11-14] MEDS: methylPREDNISolone SOD SUC 40 MG/1 ML VIAL IV SCH ×3 (09:27→21:57)
[2017-11-14] MEDS: FLUTICASONE 50 MCG NASAL SPRAY 16 GM BOTTLE BOTH NARES SCH ×2 (09:28→20:34)
[2017-11-14] MEDS: BUDESONIDE/FORMOTEROL 160-4.5 INHALER 6 GM INH SCH ×2 (10:30→20:35)
[2017-11-14] MEDS: DILTIAZEM CD 120 MG CAPSULE PO SCH (10:57)
[2017-11-14] MEDS ORDERED: FUROSEMIDE 20 MG/2 ML VIAL IV ONE (13:23)
[2017-11-14] MEDS ORDERED: cefTRIAXone 1,000 MG VIAL IM SCH (14:00)
[2017-11-14 14:55] LABS: ABG Base Excess 1.4 MMOL/L (-2.5-2.5); ABG HCO3 25.5 MMOL/L (20-26); ABG PCO2 31.4 MM HG (35-48); ABG PO2 60.5 MM HG (80-95); ABG TCO2 20.8 MMOL/L (23-27); Allen Test Positive
[2017-11-14] MEDS: cefTRIAXone 1,000 MG VIAL IV SCH (14:55)
[2017-11-14] MEDS: LEVOFLOXACIN INJ 500 MG in PREMIX 1 EACH IV SCH (16:23)
[2017-11-14] MEDS: ROSUVASTATIN 20 MG TABLET PO SCH (20:32)
[2017-11-14] MEDS: CYCLOBENZAPRINE 10 MG TABLET PO SCH (20:32)
[2017-11-15] MEDS: ALBUTEROL/IPRATROPIUM 3 ML NEB RESP TX SCH ×6 (02:55→23:26)
[2017-11-15] MEDS: methylPREDNISolone SOD SUC 40 MG/1 ML VIAL IV SCH ×3 (06:21→22:33)
[2017-11-15 06:32] LABS: Basophils % 0.2 % (0.0-0.8); Hematocrit 37.3 VOL% (42.0-52.0); Hemoglobin 12.7 GM/DL (14.0-18.0); Immature Granulocytes % 0.6 %; Lymphocytes # 0.7 10*3/uL (1.4-4.0); Lymphocytes % 4.4 % (21.2-54.2); Mean Corpuscular Hemoglobin 31 PG (27-34); Mean Corpuscular Volume 91.9 FL (87-102); Mean Platelet Volume 11.8 FL (9.6-12.0); Monocytes # 0.4 10*3/uL (0.11-0.8); Monocytes % 2.2 % (1.7-12.7); Neutrophils # 14.4 10*3/uL (1.4-7.4); Neutrophils % 92.6 % (38.7-73.9); Red Blood Count 4.06 MC/CUMM (3.8-5.5); Red Cell Distribution Width 13.9 % (9.3-17.3); White Blood Count 15.6 T/CUMM (4-12)
[2017-11-15 06:51] LABS: Calcium 8.8 MG/DL (8.5-10.1); Osmolality,Calculated 282.2 MOS/KG (273-304); Potassium 4.6 MMOL/L (3.5-5.1)
[2017-11-15 06:55] LABS: Platelet Count 169 T/CUMM (130-400)
[2017-11-15 06:57] LABS: Band Neutrophils 7 % (0-10); Lymphocytes 1 % (20-55); Segmented Neutrophils 90 % (50-85); Total Cells Counted 100
[2017-11-15 06:58] LABS: Hypochromasia 1+; Platelet Estimate Adequate
[2017-11-15] MEDS: FUROSEMIDE 40 MG TABLET PO SCH (09:09)
[2017-11-15] MEDS: POTASSIUM CHLORIDE 20 MEQ TABLET PO SCH ×2 (09:09→21:27)
[2017-11-15] MEDS: CLOPIDOGREL 75 MG TABLET PO SCH (09:09)
[2017-11-15] MEDS: DILTIAZEM CD 120 MG CAPSULE PO SCH (09:09)
[2017-11-15] MEDS: hydrALAZINE 25 MG TABLET PO SCH ×3 (09:09→21:26)
[2017-11-15] MEDS: PANTOPRAZOLE 40 MG TABLET PO SCH (09:09)
[2017-11-15] MEDS: BUDESONIDE/FORMOTEROL 160-4.5 INHALER 6 GM INH SCH ×2 (09:10→21:25)
[2017-11-15] MEDS: OXYMETAZOLINE 0.05% NASAL SPRAY 15 ML BOTTLE BOTH NARES SCH ×2 (09:10→21:25)
[2017-11-15] MEDS: DOCUSATE SODIUM 100 MG CAPSULE PO SCH ×2 (09:10→21:26)
[2017-11-15] MEDS: FLUTICASONE 50 MCG NASAL SPRAY 16 GM BOTTLE BOTH NARES SCH ×2 (09:10→21:25)
[2017-11-15] MEDS: APIXABAN 5 MG TABLET PO SCH ×2 (09:10→21:27)
[2017-11-15] MEDS: ISOSORBIDE MONONITRATE 30 MG TABLET PO SCH (09:10)
[2017-11-15] MEDS: cefTRIAXone 1,000 MG VIAL IV SCH (14:30)
[2017-11-15] MEDS: LEVOFLOXACIN INJ 500 MG in PREMIX 1 EACH IV SCH (14:35)
[2017-11-15 17:39] LABS: Apearance,Urine Slightly Hazy (Clear); Bilirubin,Urine Negative (Negative); Blood, Urine Negative (Negative); Glucose,Urine (UA) >=500 mg/dL (Negative); Ketones,Urine Negative (Negative); Mucus,Urine Occasional /LPF (Occasional); Nitrite,Urine Negative (Negative); Protein,Urine 30 MG/DL; RBC,Urine 1 /HPF (0-4); Squamous Epithelial Cell,Urine Occasional /HPF (0-10); Urine Color Yellow (Yellow); Urine Specific Gravity 1.021 (1.001-1.035); Urine Urobilinogen < 2.0 EU/DL (0.2-1.0); WBC,Urine 3 /HPF (0-6)
[2017-11-15] MEDS: ROSUVASTATIN 20 MG TABLET PO SCH (21:27)
[2017-11-15] MEDS: CYCLOBENZAPRINE 10 MG TABLET PO SCH (21:27)
[2017-11-16 02:30] LABS: Basophils % 0.1 % (0.0-0.8); Hematocrit 36.9 VOL% (42.0-52.0); Hemoglobin 11.9 GM/DL (14.0-18.0); Immature Granulocytes % 0.8 %; Immature Granulocytes Absolute 0.13 #; Lymphocytes # 0.6 10*3/uL (1.4-4.0); Lymphocytes % 4.1 % (21.2-54.2); Mean Corpuscular HGB Conc 32.2 GM/DL (32-36); Mean Corpuscular Hemoglobin 31 PG (27-34); Mean Corpuscular Volume 94.6 FL (87-102); Monocytes # 0.7 10*3/uL (0.11-0.8); Monocytes % 4.5 % (1.7-12.7); Neutrophils % 90.5 % (38.7-73.9); Platelet Count 182 T/CUMM (130-400); Red Cell Distribution Width 14.3 % (9.3-17.3); White Blood Count 15.5 T/CUMM (4-12)
[2017-11-16] MEDS: ALBUTEROL/IPRATROPIUM 3 ML NEB RESP TX SCH ×3 (03:08→11:07)
[2017-11-16 03:10] LABS: Calcium 8.9 MG/DL (8.5-10.1); Osmolality,Calculated 283.1 MOS/KG (273-304); Potassium 5.1 MMOL/L (3.5-5.1)
[2017-11-16 04:55] LABS: Band Neutrophils 1 % (0-10); Lymphocytes 3 % (20-55); Myelocytes 3 %; Segmented Neutrophils 92 % (50-85)
[2017-11-16 04:56] LABS: Platelet Estimate Normal; Total Cells Counted 100
[2017-11-16] MEDS: methylPREDNISolone SOD SUC 40 MG/1 ML VIAL IV SCH ×2 (06:16→14:32)
[2017-11-16] MEDS: DILTIAZEM CD 120 MG CAPSULE PO SCH (08:38)
[2017-11-16] MEDS: POTASSIUM CHLORIDE 20 MEQ TABLET PO SCH (08:39)
[2017-11-16] MEDS: ISOSORBIDE MONONITRATE 30 MG TABLET PO SCH (08:39)
[2017-11-16] MEDS: DOCUSATE SODIUM 100 MG CAPSULE PO SCH (08:39)
[2017-11-16] MEDS: FUROSEMIDE 40 MG TABLET PO SCH (08:40)
[2017-11-16] MEDS: APIXABAN 5 MG TABLET PO SCH (08:40)
[2017-11-16] MEDS: PANTOPRAZOLE 40 MG TABLET PO SCH (08:40)
[2017-11-16] MEDS: CLOPIDOGREL 75 MG TABLET PO SCH (08:40)
[2017-11-16] MEDS: hydrALAZINE 25 MG TABLET PO SCH (08:40)
[2017-11-16] MEDS: BUDESONIDE/FORMOTEROL 160-4.5 INHALER 6 GM INH SCH (08:42)
[2017-11-16] MEDS: OXYMETAZOLINE 0.05% NASAL SPRAY 15 ML BOTTLE BOTH NARES SCH (08:42)
[2017-11-16] MEDS: FLUTICASONE 50 MCG NASAL SPRAY 16 GM BOTTLE BOTH NARES SCH (08:42)
[2017-11-16 12:02] VITALS: BP 110/69
[2017-11-16] MEDS: LEVOFLOXACIN INJ 500 MG in PREMIX 1 EACH IV SCH (14:32)
== END 2017-11-16 14:45 | disposition home health service (06) | DRG 190 ==
LOC: PREOBSVTOIN 14:12 → INTOOBSV 14:17 → N.4E 14:19 → N.TELEN 18:23
PROVIDERS: ADMIT Family Medicine; ATTEND Family Medicine

== ENCOUNTER 2017-12-11 12:31 | Inpatient (IN) ==
[2017-12-11] MEDS ORDERED: ONDANSETRON 4 MG/2 ML VIAL IV PRN (12:54)
[2017-12-11] MEDS ORDERED: ACETAMINOPHEN 325 MG TABLET PO PRN (12:54)
[2017-12-11] MEDS: ALBUTEROL/IPRATROPIUM 3 ML NEB RESP TX SCH ×2 (13:41→19:04)
[2017-12-11 14:34] LABS: Basophils % 0.6 % (0.0-0.8); Eosinophils # 0.2 10*3/uL (0.0-0.87); Eosinophils % 2.6 % (0.00-10.9); Hematocrit 36.4 VOL% (42.0-52.0); Hemoglobin 11.7 GM/DL (14.0-18.0); Immature Granulocytes % 0.3 %; Immature Granulocytes Absolute 0.02 #; Lymphocytes # 1.8 10*3/uL (1.4-4.0); Lymphocytes % 25.9 % (21.2-54.2); Mean Corpuscular HGB Conc 32.1 GM/DL (32-36); Mean Corpuscular Hemoglobin 31 PG (27-34); Mean Corpuscular Volume 94.8 FL (87-102); Mean Platelet Volume 10.5 FL (9.6-12.0); Monocytes # 0.9 10*3/uL (0.11-0.8); Monocytes % 12.9 % (1.7-12.7); Neutrophils # 4.1 10*3/uL (1.4-7.4); Neutrophils % 57.7 % (38.7-73.9); Platelet Count 308 T/CUMM (130-400); Red Blood Count 3.84 MC/CUMM (3.8-5.5); Red Cell Distribution Width 15.7 % (9.3-17.3)
[2017-12-11 15:17] LABS: Alanine Aminotransferase 18 U/L (16-61); Albumin 3.2 G/DL (3.4-5.0); Alkaline Phosphatase 150 U/L (45-117); Aspartate Amino Transferase 16 U/L (0-37); Blood Urea Nitrogen 15 MG/DL (7-18); Calcium 9.5 MG/DL (8.5-10.1); Glucose 98 MG/DL (74-106); Osmolality,Calculated 275.7 MOS/KG (273-304); Potassium 4.3 MMOL/L (3.5-5.1); Sodium 138 MMOL/L (136-145); Troponin I Only 0.018 NG/ML (0.00-0.045)
[2017-12-11] MEDS: FUROSEMIDE 40 MG/4 ML VIAL IV SCH (16:42)
[2017-12-11 17:44] LABS: Apearance,Urine CLEAR (Clear); Bilirubin,Urine Negative (Negative); Blood, Urine Large mg/dL (Negative); Glucose,Urine (UA) Negative (Negative); Ketones,Urine Negative (Negative); Nitrite,Urine Negative (Negative); Protein,Urine Negative; RBC,Urine 38 /HPF (0-4); Urine Color Straw (Yellow); Urine Specific Gravity 1.005 (1.001-1.035); Urine Urobilinogen < 2.0 EU/DL (0.2-1.0); WBC,Urine 3 /HPF (0-6)
[2017-12-11] MEDS ORDERED: ALBUTEROL 2.5 MG/3 ML NEB RESP TX PRN (19:00)
[2017-12-11] MEDS ORDERED: CITALOPRAM 20 MG TABLET PO SCH (21:00)
[2017-12-11] MEDS: BUDESONIDE/FORMOTEROL 160-4.5 INHALER 6 GM INH SCH (21:32)
[2017-12-11] MEDS: ROSUVASTATIN 20 MG TABLET PO SCH (21:32)
[2017-12-11] MEDS: DILTIAZEM CD 120 MG CAPSULE PO SCH (21:33)
[2017-12-11] MEDS: CITALOPRAM 20 MG TABLET PO SCH (21:33)
[2017-12-11] MEDS: DOCUSATE SODIUM 100 MG CAPSULE PO SCH (21:33)
[2017-12-11] MEDS: APIXABAN 5 MG TABLET PO SCH (21:33)
[2017-12-12] MEDS: ALBUTEROL/IPRATROPIUM 3 ML NEB RESP TX SCH ×5 (00:40→19:28)
[2017-12-12 07:36] LABS: Basophils % 0.5 % (0.0-0.8); Eosinophils # 0.1 10*3/uL (0.0-0.87); Hematocrit 35.6 VOL% (42.0-52.0); Immature Granulocytes % 0.5 %; Immature Granulocytes Absolute 0.03 #; Lymphocytes # 1.5 10*3/uL (1.4-4.0); Lymphocytes % 23.8 % (21.2-54.2); Mean Corpuscular HGB Conc 33.7 GM/DL (32-36); Mean Corpuscular Hemoglobin 31 PG (27-34); Mean Corpuscular Volume 91.3 FL (87-102); Mean Platelet Volume 11.1 FL (9.6-12.0); Monocytes # 0.8 10*3/uL (0.11-0.8); Monocytes % 13.6 % (1.7-12.7); Neutrophils # 3.6 10*3/uL (1.4-7.4); Neutrophils % 59.6 % (38.7-73.9); Platelet Count 327 T/CUMM (130-400); Red Cell Distribution Width 15.6 % (9.3-17.3); White Blood Count 6.1 T/CUMM (4-12)
[2017-12-12 08:03] LABS: Calcium 9.2 MG/DL (8.5-10.1)
[2017-12-12] MEDS: CLOPIDOGREL 75 MG TABLET PO SCH (08:47)
[2017-12-12] MEDS: ISOSORBIDE MONONITRATE 30 MG TABLET PO SCH (08:47)
[2017-12-12] MEDS: DILTIAZEM CD 120 MG CAPSULE PO SCH ×2 (08:47→21:11)
[2017-12-12] MEDS: PANTOPRAZOLE 40 MG TABLET PO SCH (08:47)
[2017-12-12] MEDS: ALLOPURINOL 100 MG TABLET PO SCH (08:48)
[2017-12-12] MEDS: DOCUSATE SODIUM 100 MG CAPSULE PO SCH ×2 (08:48→21:12)
[2017-12-12] MEDS: APIXABAN 5 MG TABLET PO SCH ×2 (08:48→21:12)
[2017-12-12] MEDS: POTASSIUM CHLORIDE 20 MEQ TABLET PO SCH (08:48)
[2017-12-12] MEDS: FUROSEMIDE 40 MG/4 ML VIAL IV SCH ×2 (08:51→16:10)
[2017-12-12] MEDS ORDERED: DILTIAZEM CD 120 MG CAPSULE PO SCH (09:00)
[2017-12-12] MEDS: traMADol 50 MG TABLET PO PRN ×2 (09:54→17:24)
[2017-12-12] MEDS: BUDESONIDE/FORMOTEROL 160-4.5 INHALER 6 GM INH SCH ×2 (09:58→21:14)
[2017-12-12] MEDS: DIGOXIN 0.125 MG TABLET PO SCH (13:24)
[2017-12-12] MEDS: CITALOPRAM 20 MG TABLET PO SCH (21:11)
[2017-12-12] MEDS: ROSUVASTATIN 20 MG TABLET PO SCH (21:12)
[2017-12-13] MEDS: ALBUTEROL/IPRATROPIUM 3 ML NEB RESP TX SCH ×3 (00:45→14:01)
[2017-12-13 05:00] LABS: Basophils % 0.4 % (0.0-0.8); Eosinophils # 0.1 10*3/uL (0.0-0.87); Eosinophils % 1.1 % (0.00-10.9); Hematocrit 35.8 VOL% (42.0-52.0); Immature Granulocytes % 0.4 %; Immature Granulocytes Absolute 0.03 #; Lymphocytes # 1.1 10*3/uL (1.4-4.0); Mean Corpuscular HGB Conc 33.5 GM/DL (32-36); Mean Corpuscular Hemoglobin 30 PG (27-34); Mean Corpuscular Volume 90.6 FL (87-102); Monocytes # 1.1 10*3/uL (0.11-0.8); Monocytes % 13.8 % (1.7-12.7); Neutrophils # 5.3 10*3/uL (1.4-7.4); Neutrophils % 69.3 % (38.7-73.9); Platelet Count 357 T/CUMM (130-400); Red Blood Count 3.95 MC/CUMM (3.8-5.5); Red Cell Distribution Width 15.4 % (9.3-17.3); White Blood Count 7.6 T/CUMM (4-12)
[2017-12-13 05:28] LABS: Calcium 9.4 MG/DL (8.5-10.1); Osmolality,Calculated 271.1 MOS/KG (273-304); Potassium 4.3 MMOL/L (3.5-5.1)
[2017-12-13] MEDS ORDERED: methylPREDNISolone SOD SUC 40 MG/1 ML VIAL IV SCH (09:00)
[2017-12-13] MEDS: DILTIAZEM CD 120 MG CAPSULE PO SCH (09:18)
[2017-12-13] MEDS: APIXABAN 5 MG TABLET PO SCH (09:19)
[2017-12-13] MEDS: PANTOPRAZOLE 40 MG TABLET PO SCH (09:19)
[2017-12-13] MEDS: ALLOPURINOL 100 MG TABLET PO SCH (09:19)
[2017-12-13] MEDS: POTASSIUM CHLORIDE 20 MEQ TABLET PO SCH (09:19)
[2017-12-13] MEDS: ISOSORBIDE MONONITRATE 30 MG TABLET PO SCH (09:19)
[2017-12-13] MEDS: CLOPIDOGREL 75 MG TABLET PO SCH (09:19)
[2017-12-13] MEDS: BUDESONIDE/FORMOTEROL 160-4.5 INHALER 6 GM INH SCH (09:19)
[2017-12-13] MEDS: DOCUSATE SODIUM 100 MG CAPSULE PO SCH (09:19)
[2017-12-13] MEDS: FUROSEMIDE 40 MG/4 ML VIAL IV SCH (09:26)
[2017-12-13] MEDS ORDERED: KETOROLAC 30 MG/1 ML VIAL IV ONE (10:56)
[2017-12-13] MEDS: DIGOXIN 0.125 MG TABLET PO SCH (14:06)
[2017-12-13] MEDS ORDERED: FUROSEMIDE 40 MG TABLET PO SCH (16:00)
[2017-12-13 17:13] VITALS: BP 110/60
== END 2017-12-13 18:52 | disposition home health service (06) | DRG 292 ==
LOC: N.TELEN
PROVIDERS: ADMIT Family Medicine; ATTEND Family Medicine

== ENCOUNTER 2018-02-17 21:38 | Inpatient (IN) ==
[2018-02-17] MEDS ORDERED: ALBUTEROL/IPRATROPIUM 3 ML NEB RESP TX STA (22:59)
[2018-02-17] MEDS ORDERED: methylPREDNISolone SOD SUC 125 MG/2 ML VIAL IV STA (22:59)
[2018-02-17] MEDS ORDERED: FUROSEMIDE 100 MG/10 ML VIAL IV STA (22:59)
[2018-02-17 23:33] LABS: Basophils # 0.1 10*3/uL (0.0-0.2); Basophils % 0.5 % (0.0-0.8); Eosinophils # 0.2 10*3/uL (0.0-0.87); Hematocrit 41.6 VOL% (42.0-52.0); Hemoglobin 13.5 GM/DL (14.0-18.0); Immature Granulocytes % 0.4 %; Immature Granulocytes Absolute 0.04 #; Lymphocytes # 3.2 10*3/uL (1.4-4.0); Lymphocytes % 28.9 % (21.2-54.2); Mean Corpuscular HGB Conc 32.5 GM/DL (32-36); Mean Corpuscular Hemoglobin 32 PG (27-34); Mean Corpuscular Volume 97.7 FL (87-102); Mean Platelet Volume 11.2 FL (9.6-12.0); Monocytes % 8.7 % (1.7-12.7); NRBC # 0.05 10*3/uL; Neutrophils # 6.6 10*3/uL (1.4-7.4); Neutrophils % 59.5 % (38.7-73.9); Platelet Count 208 T/CUMM (130-400); Red Blood Count 4.26 MC/CUMM (3.8-5.5); Red Cell Distribution Width 18.2 % (9.3-17.3); White Blood Count 11.1 T/CUMM (4-12)
[2018-02-17 23:42] LABS: VBG Base Excess 6.2 MEQ/L (0-4); VBG HCO3 30.7 MEQ/L (24-28); VBG Oxygen Saturation 93.2 %; VBG PCO2 43.3 MMHG (41-51); VBG PH 7.468; VBG PO2 69.5 MMHG (17-40)
[2018-02-17 23:52] LABS: Albumin 3.9 G/DL (3.4-5.0); Bilirubin,Total 1.6 MG/DL (0.2-1.0); Calcium 9.6 MG/DL (8.5-10.1); Osmolality,Calculated 274.1 MOS/KG (273-304); Potassium 3.6 MMOL/L (3.5-5.1); Total Protein 6.9 G/DL (6.4-8.3)
[2018-02-17 23:58] LABS: Troponin I Only 0.348 NG/ML (0.00-0.045)
[2018-02-18] MEDS ORDERED: DEXTROSE 50% 25 GM/50 ML VIAL IV PRN (00:44)
[2018-02-18] MEDS ORDERED: GLUCAGON 1 MG VIAL IM PRN (00:44)
[2018-02-18] MEDS ORDERED: ONDANSETRON 4 MG/2 ML VIAL IV PRN (00:44)
[2018-02-18] MEDS ORDERED: LORazepam 1 MG TABLET PO STA (03:59)
[2018-02-18] MEDS: PANTOPRAZOLE 40 MG TABLET PO SCH (08:47)
[2018-02-18] MEDS: DOCUSATE SODIUM 100 MG CAPSULE PO SCH ×2 (08:47→22:03)
[2018-02-18] MEDS ORDERED: ALBUTEROL 2.5 MG/3 ML NEB RESP TX PRN (13:49)
[2018-02-18] MEDS: ACETAMINOPHEN 325 MG TABLET PO PRN (14:42)
[2018-02-18] MEDS: FUROSEMIDE 20 MG/2 ML VIAL IV SCH (16:12)
[2018-02-18] MEDS: ALBUTEROL/IPRATROPIUM 3 ML NEB RESP TX SCH (19:28)
[2018-02-18] MEDS ORDERED: CYCLOBENZAPRINE 10 MG TABLET PO PRN (21:00)
[2018-02-18] MEDS: ROSUVASTATIN 20 MG TABLET PO SCH (22:03)
[2018-02-18] MEDS: APIXABAN 5 MG TABLET PO SCH (22:04)
[2018-02-18] MEDS: BUDESONIDE/FORMOTEROL 160-4.5 INHALER 6 GM INH SCH (22:04)
[2018-02-19] MEDS: ALBUTEROL/IPRATROPIUM 3 ML NEB RESP TX SCH ×4 (00:11→19:13)
[2018-02-19] MEDS: ACETAMINOPHEN 325 MG TABLET PO PRN (01:07)
[2018-02-19 05:04] LABS: Basophils % 0.1 % (0.0-0.8); Hemoglobin 13.3 GM/DL (14.0-18.0); Immature Granulocytes % 0.6 %; Immature Granulocytes Absolute 0.09 #; Lymphocytes # 1.2 10*3/uL (1.4-4.0); Lymphocytes % 8.4 % (21.2-54.2); Mean Corpuscular HGB Conc 33.3 GM/DL (32-36); Mean Corpuscular Hemoglobin 32 PG (27-34); Mean Platelet Volume 11.5 FL (9.6-12.0); Monocytes % 6.8 % (1.7-12.7); NRBC # 0.06 10*3/uL; Neutrophils # 12.2 10*3/uL (1.4-7.4); Neutrophils % 84.1 % (38.7-73.9); Platelet Count 216 T/CUMM (130-400); Red Blood Count 4.21 MC/CUMM (3.8-5.5); White Blood Count 14.4 T/CUMM (4-12)
[2018-02-19 05:17] LABS: Apearance,Urine CLEAR (Clear); Bilirubin,Urine Negative (Negative); Blood, Urine Large mg/dL (Negative); Glucose,Urine (UA) Negative (Negative); Granular Casts,Urine 1 /LPF (0-1); Ketones,Urine Negative (Negative); Mucus,Urine Occasional /LPF (Occasional); Nitrite,Urine Negative (Negative); Protein,Urine Negative; RBC,Urine 9 /HPF (0-4); Urine Color Yellow (Yellow); Urine Specific Gravity 1.016 (1.001-1.035); Urine Urobilinogen < 2.0 EU/DL (0.2-1.0); WBC,Urine 1 /HPF (0-6)
[2018-02-19 05:22] LABS: Barbiturates Screen,Urine Negative (Negative); Benzodiazepines Screen,Urine Negative (Negative); Cannabinoid Screen,Urine Negative (Negative); Opiate Screen,Urine Positive (Negative); Phencyclidine Screen,Urine Negative (Negative)
[2018-02-19 05:48] LABS: Albumin 3.6 G/DL (3.4-5.0); Bilirubin,Direct 0.57 MG/DL (0.0-0.20); Bilirubin,Indirect 1.4 MG/DL (0.0-1.0); Calcium 9.7 MG/DL (8.5-10.1); Osmolality,Calculated 282.8 MOS/KG (273-304); Potassium 4.1 MMOL/L (3.5-5.1); Total Protein 6.3 G/DL (6.4-8.3)
[2018-02-19] MEDS: BUDESONIDE/FORMOTEROL 160-4.5 INHALER 6 GM INH SCH ×2 (09:42→21:29)
[2018-02-19] MEDS: FUROSEMIDE 20 MG/2 ML VIAL IV SCH ×2 (09:42→15:31)
[2018-02-19] MEDS: PANTOPRAZOLE 40 MG TABLET PO SCH (09:43)
[2018-02-19] MEDS: POTASSIUM CHLORIDE 20 MEQ TABLET PO SCH (09:43)
[2018-02-19] MEDS: APIXABAN 5 MG TABLET PO SCH ×2 (09:43→21:30)
[2018-02-19] MEDS: DILTIAZEM CD 120 MG CAPSULE PO SCH (09:43)
[2018-02-19] MEDS: CLOPIDOGREL 75 MG TABLET PO SCH (09:43)
[2018-02-19] MEDS: DOCUSATE SODIUM 100 MG CAPSULE PO SCH ×2 (09:43→21:29)
[2018-02-19] MEDS: DIGOXIN 0.125 MG TABLET PO SCH (09:43)
[2018-02-19] MEDS: ALLOPURINOL 100 MG TABLET PO SCH (09:43)
[2018-02-19] MEDS: ISOSORBIDE MONONITRATE 30 MG TABLET PO SCH (09:44)
[2018-02-19] MEDS: methylPREDNISolone SOD SUC 40 MG/1 ML VIAL IM SCH (18:18)
[2018-02-19] MEDS: ROSUVASTATIN 20 MG TABLET PO SCH (21:30)
[2018-02-20] MEDS: ALBUTEROL/IPRATROPIUM 3 ML NEB RESP TX SCH ×4 (00:32→19:32)
[2018-02-20 05:26] LABS: Basophils % 0.1 % (0.0-0.8); Hemoglobin 13.1 GM/DL (14.0-18.0); Immature Granulocytes % 0.9 %; Immature Granulocytes Absolute 0.08 #; Lymphocytes # 0.8 10*3/uL (1.4-4.0); Lymphocytes % 8.3 % (21.2-54.2); Mean Corpuscular HGB Conc 32.8 GM/DL (32-36); Mean Corpuscular Hemoglobin 32 PG (27-34); Mean Corpuscular Volume 98.3 FL (87-102); Mean Platelet Volume 11.7 FL (9.6-12.0); Monocytes # 0.4 10*3/uL (0.11-0.8); Monocytes % 3.8 % (1.7-12.7); Neutrophils # 8.1 10*3/uL (1.4-7.4); Neutrophils % 86.9 % (38.7-73.9); Platelet Count 217 T/CUMM (130-400); Red Blood Count 4.07 MC/CUMM (3.8-5.5); Red Cell Distribution Width 17.7 % (9.3-17.3); White Blood Count 9.3 T/CUMM (4-12)
[2018-02-20 06:00] LABS: Calcium 9.5 MG/DL (8.5-10.1)
[2018-02-20] MEDS: methylPREDNISolone SOD SUC 40 MG/1 ML VIAL IM SCH ×2 (06:08→17:27)
[2018-02-20] MEDS ORDERED: metOLazone 2.5 MG TABLET PO SCH (09:00)
[2018-02-20] MEDS: FUROSEMIDE 20 MG/2 ML VIAL IV SCH ×2 (09:50→17:28)
[2018-02-20] MEDS: APIXABAN 5 MG TABLET PO SCH ×2 (09:51→22:22)
[2018-02-20] MEDS: POTASSIUM CHLORIDE 20 MEQ TABLET PO SCH (09:51)
[2018-02-20] MEDS: DILTIAZEM CD 120 MG CAPSULE PO SCH (09:51)
[2018-02-20] MEDS: CLOPIDOGREL 75 MG TABLET PO SCH (09:51)
[2018-02-20] MEDS: DIGOXIN 0.125 MG TABLET PO SCH (09:51)
[2018-02-20] MEDS: ALLOPURINOL 100 MG TABLET PO SCH (09:51)
[2018-02-20] MEDS: ISOSORBIDE MONONITRATE 30 MG TABLET PO SCH (09:51)
[2018-02-20] MEDS: DOCUSATE SODIUM 100 MG CAPSULE PO SCH ×2 (09:51→22:22)
[2018-02-20] MEDS: PANTOPRAZOLE 40 MG TABLET PO SCH (09:51)
[2018-02-20] MEDS: BUDESONIDE/FORMOTEROL 160-4.5 INHALER 6 GM INH SCH ×2 (09:52→22:23)
[2018-02-20] MEDS: ROSUVASTATIN 20 MG TABLET PO SCH (22:21)
[2018-02-20] MEDS: FUROSEMIDE 40 MG TABLET PO SCH (22:23)
[2018-02-21] MEDS: ALBUTEROL/IPRATROPIUM 3 ML NEB RESP TX SCH ×2 (00:41→07:36)
[2018-02-21 05:37] LABS: Basophils % 0.1 % (0.0-0.8); Hematocrit 39.8 VOL% (42.0-52.0); Hemoglobin 13.5 GM/DL (14.0-18.0); Immature Granulocytes % 0.7 %; Immature Granulocytes Absolute 0.11 #; Lymphocytes # 1.3 10*3/uL (1.4-4.0); Lymphocytes % 8.2 % (21.2-54.2); Mean Corpuscular HGB Conc 33.9 GM/DL (32-36); Mean Corpuscular Hemoglobin 32 PG (27-34); Mean Corpuscular Volume 94.8 FL (87-102); Mean Platelet Volume 11.7 FL (9.6-12.0); Monocytes # 1.2 10*3/uL (0.11-0.8); Monocytes % 7.4 % (1.7-12.7); NRBC # 0.02 10*3/uL; Neutrophils # 13.1 10*3/uL (1.4-7.4); Neutrophils % 83.6 % (38.7-73.9); Platelet Count 252 T/CUMM (130-400); Red Cell Distribution Width 17.6 % (9.3-17.3); White Blood Count 15.6 T/CUMM (4-12)
[2018-02-21 06:11] LABS: Calcium 9.9 MG/DL (8.5-10.1); Osmolality,Calculated 279.2 MOS/KG (273-304); Potassium 3.8 MMOL/L (3.5-5.1)
[2018-02-21] MEDS: methylPREDNISolone SOD SUC 40 MG/1 ML VIAL IM SCH (06:33)
[2018-02-21] MEDS: CLOPIDOGREL 75 MG TABLET PO SCH (08:36)
[2018-02-21] MEDS: ISOSORBIDE MONONITRATE 30 MG TABLET PO SCH (08:37)
[2018-02-21] MEDS: ALLOPURINOL 100 MG TABLET PO SCH (08:37)
[2018-02-21] MEDS: POTASSIUM CHLORIDE 20 MEQ TABLET PO SCH (08:37)
[2018-02-21] MEDS: PANTOPRAZOLE 40 MG TABLET PO SCH (08:37)
[2018-02-21] MEDS: FUROSEMIDE 40 MG TABLET PO SCH (08:37)
[2018-02-21] MEDS: APIXABAN 5 MG TABLET PO SCH (08:37)
[2018-02-21] MEDS: DILTIAZEM CD 120 MG CAPSULE PO SCH (08:37)
[2018-02-21] MEDS: DIGOXIN 0.125 MG TABLET PO SCH (08:37)
[2018-02-21] MEDS: DOCUSATE SODIUM 100 MG CAPSULE PO SCH (08:37)
[2018-02-21] MEDS: BUDESONIDE/FORMOTEROL 160-4.5 INHALER 6 GM INH SCH (08:38)
[2018-02-21 12:07] VITALS: BP 138/87
== END 2018-02-21 13:36 | disposition home health service (06) | DRG 292 ==
LOC: N.ED 21:38 → N.EDINP 02-18 00:44 → N.TELES 02-18 11:27
PROVIDERS: ADMIT Family Medicine; ATTEND Family Medicine

== ENCOUNTER 2018-03-21 08:22 | Inpatient (IN) ==
[2018-03-21] MEDS ORDERED: NICOTINE 21 MG/24 HR PATCH TRANSDERM PRN (11:46)
[2018-03-21] MEDS ORDERED: MAGNESIUM SULF RIDER 2 GM in PREMIX 1 EACH IV PRN (11:46)
[2018-03-21] MEDS ORDERED: guaiFENesin/DM ER 600-30 MG TABLET PO PRN (11:46)
[2018-03-21] MEDS ORDERED: ACETAMINOPHEN 325 MG TABLET PO PRN (11:46)
[2018-03-21] MEDS ORDERED: ONDANSETRON 4 MG/2 ML VIAL IV PRN (11:46)
[2018-03-21] MEDS ORDERED: ZALEPLON 5 MG CAPSULE PO PRN (11:46)
[2018-03-21] MEDS ORDERED: diphenhydrAMINE CAP 25 MG CAPSULE PO PRN (11:46)
[2018-03-21] MEDS ORDERED: MAGNESIUM SULF RIDER 4 GM in PREMIX 1 EACH IV PRN (11:46)
[2018-03-21] MEDS ORDERED: OXYMETAZOLINE 0.05% NASAL SPRAY 15 ML BOTTLE BOTH NARES PRN (11:54)
[2018-03-21] MEDS ORDERED: metOLazone 2.5 MG TABLET PO SCH ×2 (12:00→21:00)
[2018-03-21] MEDS: CLOPIDOGREL 75 MG TABLET PO SCH (12:58)
[2018-03-21] MEDS: PANTOPRAZOLE 40 MG TABLET PO SCH (12:58)
[2018-03-21] MEDS: MULTIVITAMIN (CENTRUM) TABLET PO SCH (12:58)
[2018-03-21] MEDS: DIGOXIN 0.125 MG TABLET PO SCH (12:58)
[2018-03-21] MEDS: DILTIAZEM CD 120 MG CAPSULE PO SCH (12:58)
[2018-03-21] MEDS: ISOSORBIDE MONONITRATE 30 MG TABLET PO SCH (12:59)
[2018-03-21] MEDS: APIXABAN 5 MG TABLET PO SCH ×2 (12:59→21:34)
[2018-03-21] MEDS: FLUTICASONE 50 MCG NASAL SPRAY 16 GM BOTTLE BOTH NARES SCH ×2 (12:59→21:41)
[2018-03-21] MEDS: BUDESONIDE/FORMOTEROL 160-4.5 INHALER 6 GM INH SCH ×2 (12:59→21:41)
[2018-03-21] MEDS: ALLOPURINOL 100 MG TABLET PO SCH (12:59)
[2018-03-21] MEDS: FERROUS SULFATE 325 MG TABLET PO SCH (12:59)
[2018-03-21] MEDS ORDERED: ALBUTEROL 2.5 MG/3 ML NEB RESP TX PRN (13:00)
[2018-03-21 13:05] LABS: Basophils # 0.1 10*3/uL (0.0-0.2); Basophils % 0.7 % (0.0-0.8); Eosinophils # 0.1 10*3/uL (0.0-0.87); Hematocrit 39.1 VOL% (42.0-52.0); Hemoglobin 13.1 GM/DL (14.0-18.0); Immature Granulocytes % 0.5 %; Immature Granulocytes Absolute 0.04 #; Lymphocytes # 1.9 10*3/uL (1.4-4.0); Lymphocytes % 22.9 % (21.2-54.2); Mean Corpuscular HGB Conc 33.5 GM/DL (32-36); Mean Corpuscular Hemoglobin 32 PG (27-34); Mean Corpuscular Volume 95.8 FL (87-102); Mean Platelet Volume 11.7 FL (9.6-12.0); Monocytes # 0.8 10*3/uL (0.11-0.8); Monocytes % 9.8 % (1.7-12.7); Neutrophils # 5.3 10*3/uL (1.4-7.4); Neutrophils % 65.1 % (38.7-73.9); Platelet Count 294 T/CUMM (130-400); Red Blood Count 4.08 MC/CUMM (3.8-5.5); White Blood Count 8.1 T/CUMM (4-12)
[2018-03-21] MEDS: ALBUTEROL/IPRATROPIUM 3 ML NEB RESP TX SCH ×3 (13:26→23:08)
[2018-03-21 13:35] LABS: Calcium 9.8 MG/DL (8.5-10.1); Osmolality,Calculated 277.2 MOS/KG (273-304); Potassium 2.7 MMOL/L (3.5-5.1)
[2018-03-21] MEDS ORDERED: POTASSIUM CHLORIDE 20 MEQ TABLET PO ONE (13:47)
[2018-03-21] MEDS ORDERED: FUROSEMIDE 40 MG/4 ML VIAL IV ONE (14:08)
[2018-03-21] MEDS ORDERED: AMIODARONE INJ 150 MG in DEXTROSE 5% 100 ML IV ONE (14:11)
[2018-03-21] MEDS ORDERED: AMIODARONE INJ 450 MG in DEXTROSE 5% 241 ML IV SCH (14:30)
[2018-03-21 14:42] LABS: Apearance,Urine Slightly Hazy (Clear); Bilirubin,Urine Negative (Negative); Blood, Urine Moderate mg/dL (Negative); Glucose,Urine (UA) Negative (Negative); Ketones,Urine Negative (Negative); Nitrite,Urine Negative (Negative); Protein,Urine 30 MG/DL; RBC,Urine 50 /HPF (0-4); Squamous Epithelial Cell,Urine Occasional /HPF (0-10); Urine Color Yellow (Yellow); Urine Specific Gravity 1.015 (1.001-1.035); WBC,Urine 2 /HPF (0-6)
[2018-03-21] MEDS: SPIRONOLACTONE 25 MG TABLET PO SCH (15:23)
[2018-03-21] MEDS: ASCORBIC ACID 500 MG TABLET PO SCH ×2 (15:23→21:34)
[2018-03-21] MEDS: LACTULOSE 20 GM/30 ML UDCUP PO PRN ×2 (16:37→21:35)
[2018-03-21] MEDS: ROSUVASTATIN 20 MG TABLET PO SCH (21:33)
[2018-03-21] MEDS: POTASSIUM CHLORIDE 20 MEQ TABLET PO SCH (21:33)
[2018-03-21] MEDS: DOCUSATE SODIUM 100 MG CAPSULE PO SCH (21:34)
[2018-03-21] MEDS: CITALOPRAM 20 MG TABLET PO SCH (21:34)
[2018-03-21] MEDS: AMIODARONE INJ 450 MG in DEXTROSE 5% 241 ML IV SCH (22:39)
[2018-03-22] MEDS ORDERED: FUROSEMIDE 40 MG/4 ML VIAL IV SCH (00:01)
[2018-03-22 05:31] LABS: Amorphous Crystals,Urine Occasional /HPF (Few); Apearance,Urine Slightly Hazy (Clear); Bilirubin,Urine Negative (Negative); Blood, Urine Negative (Negative); Glucose,Urine (UA) Negative (Negative); Hyaline Casts,Urine 37 /LPF (0-3); Ketones,Urine Negative (Negative); Nitrite,Urine Negative (Negative); Protein,Urine 30 MG/DL; RBC,Urine 20 /HPF (0-4); Squamous Epithelial Cell,Urine Occasional /HPF (0-10); Urine Color Amber (Yellow); Urine Specific Gravity 1.016 (1.001-1.035); WBC,Urine 1 /HPF (0-6)
[2018-03-22 06:00] LABS: Basophils % 0.3 % (0.0-0.8); Hematocrit 41.2 VOL% (42.0-52.0); Hemoglobin 13.6 GM/DL (14.0-18.0); Immature Granulocytes % 0.8 %; Lymphocytes # 1.4 10*3/uL (1.4-4.0); Lymphocytes % 11.1 % (21.2-54.2); Mean Corpuscular Hemoglobin 32 PG (27-34); Mean Corpuscular Volume 96.5 FL (87-102); Mean Platelet Volume 12.9 FL (9.6-12.0); Monocytes # 1.6 10*3/uL (0.11-0.8); Monocytes % 12.8 % (1.7-12.7); NRBC # 0.02 10*3/uL; Neutrophils # 9.2 10*3/uL (1.4-7.4); Platelet Count 310 T/CUMM (130-400); Red Blood Count 4.27 MC/CUMM (3.8-5.5); Red Cell Distribution Width 15.4 % (9.3-17.3); White Blood Count 12.2 T/CUMM (4-12)
[2018-03-22 06:24] LABS: Calcium 9.6 MG/DL (8.5-10.1); Osmolality,Calculated 266.9 MOS/KG (273-304); Potassium 3.5 MMOL/L (3.5-5.1)
[2018-03-22 06:59] LABS: Risk Ratio 2.24
[2018-03-22] MEDS ORDERED: POTASSIUM CHLORIDE 20 MEQ TABLET PO SCH (07:30)
[2018-03-22] MEDS: ALBUTEROL/IPRATROPIUM 3 ML NEB RESP TX SCH ×3 (07:44→19:25)
[2018-03-22] MEDS: FUROSEMIDE 40 MG/4 ML VIAL IV SCH ×3 (08:21→15:52)
[2018-03-22] MEDS: DILTIAZEM CD 120 MG CAPSULE PO SCH (08:33)
[2018-03-22] MEDS: ISOSORBIDE MONONITRATE 30 MG TABLET PO SCH (08:33)
[2018-03-22] MEDS: SPIRONOLACTONE 25 MG TABLET PO SCH (09:45)
[2018-03-22] MEDS: DOCUSATE SODIUM 100 MG CAPSULE PO SCH ×2 (09:45→21:41)
[2018-03-22] MEDS: MULTIVITAMIN (CENTRUM) TABLET PO SCH (09:45)
[2018-03-22] MEDS: POTASSIUM CHLORIDE 20 MEQ TABLET PO SCH ×2 (09:46→21:40)
[2018-03-22] MEDS: APIXABAN 5 MG TABLET PO SCH ×2 (09:46→21:41)
[2018-03-22] MEDS: FERROUS SULFATE 325 MG TABLET PO SCH (09:46)
[2018-03-22] MEDS: FLUTICASONE 50 MCG NASAL SPRAY 16 GM BOTTLE BOTH NARES SCH ×2 (09:46→21:45)
[2018-03-22] MEDS: CLOPIDOGREL 75 MG TABLET PO SCH (09:46)
[2018-03-22] MEDS: BUDESONIDE/FORMOTEROL 160-4.5 INHALER 6 GM INH SCH ×2 (09:47→21:45)
[2018-03-22] MEDS: ALLOPURINOL 100 MG TABLET PO SCH (09:47)
[2018-03-22] MEDS: PANTOPRAZOLE 40 MG TABLET PO SCH (09:47)
[2018-03-22] MEDS: ASCORBIC ACID 500 MG TABLET PO SCH ×2 (09:47→21:40)
[2018-03-22] MEDS ORDERED: DIAZEPAM 5 MG TABLET PO ONE (13:11)
[2018-03-22] MEDS: DIGOXIN 0.125 MG TABLET PO SCH (13:22)
[2018-03-22] MEDS ORDERED: SPIRONOLACTONE 25 MG TABLET PO SCH (13:39)
[2018-03-22 14:32] LABS: Calcium 9.1 MG/DL (8.5-10.1); Osmolality,Calculated 266.4 MOS/KG (273-304); Potassium 3.9 MMOL/L (3.5-5.1)
[2018-03-22] MEDS: AMIODARONE INJ 450 MG in DEXTROSE 5% 241 ML IV SCH (15:40)
[2018-03-22] MEDS: ROSUVASTATIN 20 MG TABLET PO SCH (21:40)
[2018-03-22] MEDS: CITALOPRAM 20 MG TABLET PO SCH (21:41)
[2018-03-23] MEDS: ALBUTEROL/IPRATROPIUM 3 ML NEB RESP TX SCH ×4 (01:58→19:47)
[2018-03-23] MEDS: CYCLOBENZAPRINE 10 MG TABLET PO PRN (03:38)
[2018-03-23 05:46] LABS: Basophils # 0.1 10*3/uL (0.0-0.2); Basophils % 0.5 % (0.0-0.8); Eosinophils % 0.2 % (0.00-10.9); Hematocrit 37.5 VOL% (42.0-52.0); Hemoglobin 12.9 GM/DL (14.0-18.0); Immature Granulocytes % 0.6 %; Immature Granulocytes Absolute 0.06 #; Lymphocytes # 1.4 10*3/uL (1.4-4.0); Lymphocytes % 13.7 % (21.2-54.2); Mean Corpuscular HGB Conc 34.4 GM/DL (32-36); Mean Corpuscular Hemoglobin 32 PG (27-34); Mean Corpuscular Volume 93.8 FL (87-102); Monocytes % 9.7 % (1.7-12.7); NRBC # 0.03 10*3/uL; Neutrophils # 7.8 10*3/uL (1.4-7.4); Neutrophils % 75.3 % (38.7-73.9); Platelet Count 297 T/CUMM (130-400); White Blood Count 10.3 T/CUMM (4-12)
[2018-03-23 06:17] LABS: Calcium 8.8 MG/DL (8.5-10.1); Osmolality,Calculated 264.5 MOS/KG (273-304); Potassium 3.7 MMOL/L (3.5-5.1)
[2018-03-23] MEDS: AMIODARONE INJ 450 MG in DEXTROSE 5% 241 ML IV SCH ×3 (06:27→23:52)
[2018-03-23] MEDS: DILTIAZEM CD 120 MG CAPSULE PO SCH (08:20)
[2018-03-23] MEDS: DOCUSATE SODIUM 100 MG CAPSULE PO SCH ×2 (08:20→20:17)
[2018-03-23] MEDS: FERROUS SULFATE 325 MG TABLET PO SCH (08:20)
[2018-03-23] MEDS: APIXABAN 5 MG TABLET PO SCH ×2 (08:20→20:17)
[2018-03-23] MEDS: CLOPIDOGREL 75 MG TABLET PO SCH (08:21)
[2018-03-23] MEDS: PANTOPRAZOLE 40 MG TABLET PO SCH (08:21)
[2018-03-23] MEDS: ISOSORBIDE MONONITRATE 30 MG TABLET PO SCH (08:21)
[2018-03-23] MEDS: ALLOPURINOL 100 MG TABLET PO SCH (08:21)
[2018-03-23] MEDS: POTASSIUM CHLORIDE 20 MEQ TABLET PO SCH ×2 (08:21→20:18)
[2018-03-23] MEDS: ASCORBIC ACID 500 MG TABLET PO SCH ×2 (08:22→20:17)
[2018-03-23] MEDS: MULTIVITAMIN (CENTRUM) TABLET PO SCH (08:22)
[2018-03-23] MEDS: FLUTICASONE 50 MCG NASAL SPRAY 16 GM BOTTLE BOTH NARES SCH ×2 (08:22→22:36)
[2018-03-23] MEDS: FUROSEMIDE 40 MG/4 ML VIAL IV SCH ×2 (08:30→17:44)
[2018-03-23] MEDS: BUDESONIDE/FORMOTEROL 160-4.5 INHALER 6 GM INH SCH ×2 (08:33→22:37)
[2018-03-23] MEDS: DIGOXIN 0.125 MG TABLET PO SCH (13:00)
[2018-03-23] MEDS ORDERED: metOLazone 2.5 MG TABLET PO ONE (14:30)
[2018-03-23] MEDS ORDERED: FUROSEMIDE 40 MG/4 ML VIAL IV ONE (14:30)
[2018-03-23] MEDS: ROSUVASTATIN 20 MG TABLET PO SCH (20:17)
[2018-03-23] MEDS: CITALOPRAM 20 MG TABLET PO SCH (20:17)
[2018-03-24] MEDS: ALBUTEROL/IPRATROPIUM 3 ML NEB RESP TX SCH ×4 (00:02→19:28)
[2018-03-24 05:53] LABS: Basophils # 0.1 10*3/uL (0.0-0.2); Basophils % 0.6 % (0.0-0.8); Eosinophils % 0.5 % (0.00-10.9); Hematocrit 37.3 VOL% (42.0-52.0); Hemoglobin 12.8 GM/DL (14.0-18.0); Immature Granulocytes % 0.7 %; Immature Granulocytes Absolute 0.06 #; Lymphocytes # 1.3 10*3/uL (1.4-4.0); Lymphocytes % 15.5 % (21.2-54.2); Mean Corpuscular HGB Conc 34.3 GM/DL (32-36); Mean Corpuscular Hemoglobin 32 PG (27-34); Mean Corpuscular Volume 93.3 FL (87-102); Mean Platelet Volume 11.9 FL (9.6-12.0); Monocytes # 0.9 10*3/uL (0.11-0.8); Monocytes % 10.3 % (1.7-12.7); NRBC # 0.02 10*3/uL; Neutrophils # 6.1 10*3/uL (1.4-7.4); Neutrophils % 72.4 % (38.7-73.9); Platelet Count 285 T/CUMM (130-400); Red Cell Distribution Width 14.9 % (9.3-17.3); White Blood Count 8.4 T/CUMM (4-12)
[2018-03-24 06:21] LABS: Calcium 8.7 MG/DL (8.5-10.1); Calcium 8.8 MG/DL (8.5-10.1); Osmolality,Calculated 268.1 MOS/KG (273-304); Potassium 3.1 MMOL/L (3.5-5.1)
[2018-03-24 06:24] LABS: Albumin 3.1 G/DL (3.4-5.0); Bilirubin,Direct 0.92 MG/DL (0.0-0.20); Bilirubin,Indirect 1.9 MG/DL (0.0-1.0); Bilirubin,Total 2.8 MG/DL (0.2-1.0); Total Protein 6.7 G/DL (6.4-8.3)
[2018-03-24] MEDS: POTASSIUM CHLORIDE RIDER 10 MEQ in PREMIX 1 EACH IV PRN ×3 (06:54→21:29)
[2018-03-24] MEDS ORDERED: ceFAZolin 1,000 MG VIAL ONE (07:34)
[2018-03-24] MEDS ORDERED: HEPARIN/NACL 0.9% 2 UNITS/ML 500 ML IV ONE (07:35)
[2018-03-24] MEDS ORDERED: LIDOCAINE 1% 20 ML VIAL ONE (07:36)
[2018-03-24] MEDS: SPIRONOLACTONE 50 MG TABLET PO SCH (10:31)
[2018-03-24] MEDS: MULTIVITAMIN (CENTRUM) TABLET PO SCH (10:32)
[2018-03-24] MEDS: FERROUS SULFATE 325 MG TABLET PO SCH (10:32)
[2018-03-24] MEDS: ASCORBIC ACID 500 MG TABLET PO SCH ×2 (10:33→21:24)
[2018-03-24] MEDS: ISOSORBIDE MONONITRATE 30 MG TABLET PO SCH (10:33)
[2018-03-24] MEDS: ALLOPURINOL 100 MG TABLET PO SCH (10:33)
[2018-03-24] MEDS: PANTOPRAZOLE 40 MG TABLET PO SCH (10:34)
[2018-03-24] MEDS: POTASSIUM CHLORIDE 20 MEQ TABLET PO SCH ×2 (10:35→21:24)
[2018-03-24] MEDS: CLOPIDOGREL 75 MG TABLET PO SCH (10:35)
[2018-03-24] MEDS: DILTIAZEM CD 120 MG CAPSULE PO SCH (10:35)
[2018-03-24] MEDS: DOCUSATE SODIUM 100 MG CAPSULE PO SCH ×2 (10:37→21:25)
[2018-03-24] MEDS: FLUTICASONE 50 MCG NASAL SPRAY 16 GM BOTTLE BOTH NARES SCH ×2 (10:38→21:28)
[2018-03-24] MEDS: APIXABAN 5 MG TABLET PO SCH ×2 (10:40→21:26)
[2018-03-24] MEDS: MEXILETINE 150 MG CAPSULE PO SCH ×2 (10:40→17:23)
[2018-03-24] MEDS: FUROSEMIDE 40 MG/4 ML VIAL IV SCH ×2 (10:44→17:22)
[2018-03-24] MEDS: BUDESONIDE/FORMOTEROL 160-4.5 INHALER 6 GM INH SCH ×3 (10:58→21:28)
[2018-03-24] MEDS: DIGOXIN 0.125 MG TABLET PO SCH (12:59)
[2018-03-24] MEDS ORDERED: ETOMIDATE 40 MG/20 ML VIAL IV ONE (13:55)
[2018-03-24] MEDS ORDERED: PROPOFOL 200 MG/20 ML VIAL IV ONE (13:55)
[2018-03-24] MEDS: AMIODARONE INJ 450 MG in DEXTROSE 5% 241 ML IV SCH (17:22)
[2018-03-24] MEDS: CITALOPRAM 20 MG TABLET PO SCH (21:23)
[2018-03-24] MEDS: ROSUVASTATIN 20 MG TABLET PO SCH (21:25)
[2018-03-25] MEDS: POTASSIUM CHLORIDE RIDER 10 MEQ in PREMIX 1 EACH IV PRN ×2 (00:07→03:16)
[2018-03-25] MEDS: CYCLOBENZAPRINE 10 MG TABLET PO PRN ×2 (00:11→21:54)
[2018-03-25] MEDS: LACTULOSE 20 GM/30 ML UDCUP PO PRN (00:11)
[2018-03-25] MEDS: ALBUTEROL/IPRATROPIUM 3 ML NEB RESP TX SCH ×4 (00:23→18:39)
[2018-03-25] MEDS: MEXILETINE 150 MG CAPSULE PO SCH ×3 (03:52→17:25)
[2018-03-25 05:19] LABS: Basophils # 0.1 10*3/uL (0.0-0.2); Basophils % 0.4 % (0.0-0.8); Eosinophils % 0.3 % (0.00-10.9); Hematocrit 40.4 VOL% (42.0-52.0); Hemoglobin 13.3 GM/DL (14.0-18.0); Immature Granulocytes % 0.4 %; Immature Granulocytes Absolute 0.04 #; Lymphocytes # 1.5 10*3/uL (1.4-4.0); Lymphocytes % 13.4 % (21.2-54.2); Mean Corpuscular HGB Conc 32.9 GM/DL (32-36); Mean Corpuscular Hemoglobin 32 PG (27-34); Mean Corpuscular Volume 96.4 FL (87-102); Mean Platelet Volume 11.8 FL (9.6-12.0); Monocytes # 1.1 10*3/uL (0.11-0.8); Monocytes % 9.6 % (1.7-12.7); NRBC # 0.02 10*3/uL; Neutrophils # 8.6 10*3/uL (1.4-7.4); Neutrophils % 75.9 % (38.7-73.9); Platelet Count 300 T/CUMM (130-400); Red Blood Count 4.19 MC/CUMM (3.8-5.5); Red Cell Distribution Width 15.2 % (9.3-17.3); White Blood Count 11.4 T/CUMM (4-12)
[2018-03-25 05:40] LABS: Calcium 9.7 MG/DL (8.5-10.1); Osmolality,Calculated 269.1 MOS/KG (273-304); Potassium 4.1 MMOL/L (3.5-5.1)
[2018-03-25] MEDS: DILTIAZEM CD 120 MG CAPSULE PO SCH (08:44)
[2018-03-25] MEDS: SPIRONOLACTONE 50 MG TABLET PO SCH (08:44)
[2018-03-25] MEDS: DOCUSATE SODIUM 100 MG CAPSULE PO SCH ×2 (08:44→21:53)
[2018-03-25] MEDS: FERROUS SULFATE 325 MG TABLET PO SCH (08:45)
[2018-03-25] MEDS: MULTIVITAMIN (CENTRUM) TABLET PO SCH (08:45)
[2018-03-25] MEDS: CLOPIDOGREL 75 MG TABLET PO SCH (08:45)
[2018-03-25] MEDS: ALLOPURINOL 100 MG TABLET PO SCH (08:45)
[2018-03-25] MEDS: ISOSORBIDE MONONITRATE 30 MG TABLET PO SCH (08:45)
[2018-03-25] MEDS: PANTOPRAZOLE 40 MG TABLET PO SCH (08:45)
[2018-03-25] MEDS: APIXABAN 5 MG TABLET PO SCH ×2 (08:45→21:54)
[2018-03-25] MEDS: FUROSEMIDE 40 MG/4 ML VIAL IV SCH ×3 (08:45→17:06)
[2018-03-25] MEDS: POTASSIUM CHLORIDE 20 MEQ TABLET PO SCH ×2 (08:45→21:54)
[2018-03-25] MEDS: BUDESONIDE/FORMOTEROL 160-4.5 INHALER 6 GM INH SCH ×2 (08:50→21:54)
[2018-03-25] MEDS: FLUTICASONE 50 MCG NASAL SPRAY 16 GM BOTTLE BOTH NARES SCH ×2 (08:50→21:54)
[2018-03-25] MEDS: ASCORBIC ACID 500 MG TABLET PO SCH ×2 (09:16→21:53)
[2018-03-25] MEDS: AMIODARONE INJ 450 MG in DEXTROSE 5% 241 ML IV SCH (09:26)
[2018-03-25] MEDS: AMIODARONE 200 MG TABLET PO SCH (10:37)
[2018-03-25] MEDS ORDERED: FUROSEMIDE 40 MG/4 ML VIAL IV ONE (11:25)
[2018-03-25 13:02] LABS: ABG Base Excess 6.4 MMOL/L (-2.5-2.5); ABG HCO3 30.2 MMOL/L (20-26); ABG Oxygen Saturation 96.7 % (95-100); ABG PCO2 27.9 MM HG (35-48); ABG TCO2 23.5 MMOL/L (23-27); Allen Test Positive
[2018-03-25 13:03] LABS: ABG PH 7.599 (7.35-7.45)
[2018-03-25] MEDS: DIGOXIN 0.125 MG TABLET PO SCH (13:55)
[2018-03-25] MEDS: ROSUVASTATIN 20 MG TABLET PO SCH (21:52)
[2018-03-25] MEDS: CITALOPRAM 20 MG TABLET PO SCH (21:54)
[2018-03-25] MEDS: ALBUTEROL 2.5 MG/3 ML NEB RESP TX SCH ×2 (22:28→22:56)
[2018-03-26] MEDS: ALBUTEROL/IPRATROPIUM 3 ML NEB RESP TX SCH ×3 (00:28→13:46)
[2018-03-26] MEDS ORDERED: ALBUTEROL 2.5 MG/3 ML NEB RESP TX PRN (00:56)
[2018-03-26] MEDS: MEXILETINE 150 MG CAPSULE PO SCH ×2 (01:43→10:40)
[2018-03-26 05:20] LABS: Basophils % 0.3 % (0.0-0.8); Eosinophils % 0.2 % (0.00-10.9); Hematocrit 39.7 VOL% (42.0-52.0); Hemoglobin 13.1 GM/DL (14.0-18.0); Immature Granulocytes % 0.7 %; Immature Granulocytes Absolute 0.08 #; Lymphocytes # 1.6 10*3/uL (1.4-4.0); Lymphocytes % 13.4 % (21.2-54.2); Mean Corpuscular Hemoglobin 32 PG (27-34); Mean Corpuscular Volume 96.4 FL (87-102); Mean Platelet Volume 12.2 FL (9.6-12.0); Monocytes # 1.3 10*3/uL (0.11-0.8); NRBC # 0.07 10*3/uL; Neutrophils # 8.8 10*3/uL (1.4-7.4); Neutrophils % 74.4 % (38.7-73.9); Platelet Count 281 T/CUMM (130-400); Red Blood Count 4.12 MC/CUMM (3.8-5.5); Red Cell Distribution Width 15.2 % (9.3-17.3); White Blood Count 11.9 T/CUMM (4-12)
[2018-03-26 05:42] LABS: Osmolality,Calculated 266.4 MOS/KG (273-304); Potassium 5.8 MMOL/L (3.5-5.1)
[2018-03-26] MEDS ORDERED: MORPHINE 4 MG/1 ML VIAL IV ONE (09:28)
[2018-03-26] MEDS ORDERED: ALPRAZolam 0.5 MG TABLET PO PRN (09:29)
[2018-03-26] MEDS: FERROUS SULFATE 325 MG TABLET PO SCH (10:40)
[2018-03-26] MEDS: MULTIVITAMIN (CENTRUM) TABLET PO SCH (10:40)
[2018-03-26] MEDS: AMIODARONE 200 MG TABLET PO SCH (10:40)
[2018-03-26] MEDS: ALLOPURINOL 100 MG TABLET PO SCH (10:40)
[2018-03-26] MEDS: ASCORBIC ACID 500 MG TABLET PO SCH (10:40)
[2018-03-26] MEDS: PANTOPRAZOLE 40 MG TABLET PO SCH (10:40)
[2018-03-26] MEDS: DOCUSATE SODIUM 100 MG CAPSULE PO SCH (10:40)
[2018-03-26] MEDS: APIXABAN 5 MG TABLET PO SCH (10:41)
[2018-03-26] MEDS: CLOPIDOGREL 75 MG TABLET PO SCH (10:41)
[2018-03-26] MEDS: FLUTICASONE 50 MCG NASAL SPRAY 16 GM BOTTLE BOTH NARES SCH (10:41)
[2018-03-26] MEDS: BUDESONIDE/FORMOTEROL 160-4.5 INHALER 6 GM INH SCH (10:41)
[2018-03-26] MEDS: ISOSORBIDE MONONITRATE 30 MG TABLET PO SCH (10:42)
[2018-03-26] MEDS: MORPHINE 4 MG/1 ML VIAL IV PRN ×4 (14:02→21:39)
[2018-03-26] MEDS: LORazepam 2 MG/1 ML VIAL IV PRN ×4 (14:57→21:39)
[2018-03-27 00:08] VITALS: BP 117/61
== END 2018-03-26 13:18 | disposition hospice, inpatient (51) | DRG 273 ==
LOC: N.TELEN 09:20 → N.ICU 03-22 08:08 → N.TELES 03-23 13:14 → N.4E 03-26 13:10 → UNDODISIN 03-27 01:02
PROVIDERS: ADMIT Internal Medicine Cardiovascular Disease; ATTEND Internal Medicine Cardiovascular Disease

== ENCOUNTER 2018-03-26 | Inpatient (IN) ==
[2018-03-26] MEDS ORDERED: MEXILETINE 150 MG CAPSULE PO ONE ×2 (01:43→10:40)
[2018-03-26] MEDS ORDERED: PANTOPRAZOLE 40 MG TABLET PO ONE (10:40)
[2018-03-26] MEDS ORDERED: FERROUS SULFATE 325 MG TABLET PO ONE (10:40)
[2018-03-26] MEDS ORDERED: AMIODARONE 200 MG TABLET PO ONE (10:40)
[2018-03-26] MEDS ORDERED: MULTIVITAMIN (CENTRUM) TABLET PO ONE (10:40)
[2018-03-26] MEDS ORDERED: ALLOPURINOL 100 MG TABLET PO ONE (10:40)
[2018-03-26] MEDS ORDERED: DOCUSATE SODIUM 100 MG CAPSULE PO ONE (10:40)
[2018-03-26] MEDS ORDERED: ASCORBIC ACID 500 MG TABLET PO ONE (10:40)
[2018-03-26] MEDS ORDERED: CLOPIDOGREL 75 MG TABLET PO ONE (10:41)
[2018-03-26] MEDS ORDERED: ALPRAZolam 0.5 MG TABLET PO ONE (10:41)
[2018-03-26] MEDS ORDERED: APIXABAN 5 MG TABLET PO ONE (10:41)
[2018-03-26] MEDS ORDERED: MORPHINE 4 MG/1 ML VIAL IV ONE ×5 (10:42→21:39)
[2018-03-26] MEDS ORDERED: LORazepam 2 MG/1 ML VIAL IV ONE ×4 (14:57→21:39)
== END 2018-03-27 01:02 | disposition expired | DRG 951 ==
LOC: N.4E 12:00
PROVIDERS: ADMIT Internal Medicine Cardiovascular Disease; ATTEND Internal Medicine Cardiovascular Disease